=== PATIENT | female | born 1955 | race Caucasian/White ===

== ENCOUNTER → 2016-04-10 | Outpatient (CLI) | payer OTHER ==
[~2016-04-10] MED LIST: ALPR-411 PO; BACL20TA PO; CHLOTAB10 PO; DOCU100T7 PO; EFFSR150 PO; GABA800T PO; HYDR25TA4 PO; LISI-461 PO; NXM/40 PO; OXYC1TAB3 PO; POLY335019 PO; SIMV40TA4 PO; TRAM-10 PO; VALA1TAB31 PO; VERA180T PO; ZNTT/150 PO
== END | disposition home or self-care (01) ==
LOC: C.RDSM 14:23
PROVIDERS: ATTEND Physical Medicine & Rehabilitation Sports Medicine
DX: M79.642 Pain in left hand (principal)

== ENCOUNTER → 2016-04-18 | Day surgery (SDC) | payer OTHER ==
[2016-04-04 10:39] VITALS: Ht 157.5 cm; Wt 111.4 kg
[~2016-04-18] VITALS: Ht 157.5 cm; Wt 111.4 kg
[~2016-04-18] MED LIST changes: +IOPAMIDOL INJ 61% 15 ML VIAL ONE; +LIDOCAINE HCL 1% MPF 5 ML VIAL ONE; +SODIUM CHLORIDE 0.9% INJ 10 ML VIAL ONE
--- NOTE | 2016-04-18 12:55 | History & Physical Bridge - [place] ---
H&P Re-Evaluation Bridge Note: I have examined the patient, reviewed the History & Physical and in the interval since the performance of the History & Physical I have noted the following changes of clinical significance: No changes noted
[2016-04-18 13:22] VITALS: TEMP 36.8
--- NOTE | 2016-04-18 13:24 | Discharge Instructions ---
Discharge Instructions Visit Reason for Visit: Lumbosacral Radiculopathy Discharge Discharge Diagnosis / Problem: right leg pain Discharge Goals Goal(s): Decrease discomfort, Improve function Anesthesia . Post Anesthesia Instructions: If you have had General Anesthesia or IV Sedation: * Do not drive today. * Resume driving when surgeon permits. * Do not make important decisions or sign legal documents today. * Call surgeon for: 1. Temperature elevations greater than 101 degrees F. 2. Uncontrollable pain. 3. Excessive bleeding. 4. Persistent nausea and vomiting. 5. Medication intolerance (nausea, vomiting or rash). * For nausea and vomiting use only clear liquids such as: tea, soda, bouillon until nausea subsides, then gradually increase diet as tolerated. * If you have any concerns or questions, call your surgeon's office. If physician is unavailable and it is an emergency, call 911 or go to the nearest emergency room. . Diet Recommendations Recommended Home Diet: resume previous diet Procedures Procedures Performed: LUMBAR EPIDURAL STEROID INJECTION Pending Studies Studies pending at discharge: no Medical Emergencies . Who to Call and When: Medical Emergencies: If at any time you feel your situation is an emergency, please call 911 immediately. . Non-Emergent Contact Non-Emergency issues call your: Specialist . . "Provider Documentation" section prepared by Jamie Gilliam.
[2016-04-18 13:28] VITALS: BP 127/80; PULSE 76; O2SAT 95
--- NOTE | 2016-04-18 14:07 | OPERATIVE REPORT ---
DATE OF OPERATION: 04/18/2016 PREOPERATIVE DIAGNOSIS: Lumbar spinal stenosis with a right L5 radiculopathy. POSTOPERATIVE DIAGNOSIS: Same. PROCEDURE: Right paramedian L5-S1 intralaminar epidural steroid injection under fluoroscopic guidance. INDICATIONS: The patient is a 61-year-old white female who has had increasing radicular pain following a classic L5 dermatomal distribution down the right leg secondary to lumbar spinal stenosis and it is functionally limiting to her. She wishes to have something done more than a conservative treatment as she has failed this approach. She presents today for an epidural injection. PHYSICAL EXAMINATION: GENERAL: Pleasant female seated comfortably in no apparent distress. MUSCULOSKELETAL: Lumbar paraspinal muscles were palpated and noted to have tenderness over her right sciatic notch. She had reproduction of pain with forward flexion. Normal lower extremity strength, intact sensation, and negative seated straight leg raises. CONSENT: Verbal and written consent was obtained from the patient. Risks and benefits were reviewed. Risks include, but are not limited to epidural abscess, epidural hematoma, allergic reaction, and dural puncture. The patient wishes to proceed. DESCRIPTION OF PROCEDURE: The patient was taken back into the special procedures room at [facility], where she was maintained in a prone position. Backside was cleansed with Betadine x3 and a dry sterile dressing was applied. Fluoroscope was used to identify the L5-S1 intralaminar space and overlying skin was anesthetized with 4 mL of lidocaine 1% with a 25-gauge 1-1/2-inch needle. A 22-gauge 4-1/4 inch Tuohy needle was then directed down towards the intralaminar space and advanced under fluoroscopic guidance. She began to feel some discomfort at the deeper tissues. An additional 1 mL of lidocaine 1% was utilized. Loss of resistance was noted at a depth of little more than 11 cm. Isovue-300 contrast 1 mL was injected, in which demonstrated epidural uptake pattern, which was confirmed with both AP and lateral views. She then underwent injection after negative aspiration of 40 mg of Depo-Medrol and 4 mL of preservative free sodium chloride. Injection was well tolerated and reproduced a familiar transient radicular sensation down the right leg. DISPOSITION: 1. The patient is taken out into the discharge recovery area, where she will be discharged home once discharge criteria have been met. 2. Follow up in the [facility] office in 2-4 weeks. I attest to the content of the Intraoperative Record and any orders documented therein. Any exceptio ns are noted below.
== END | disposition home or self-care (01) ==
LOC: X.SURG 11:46
PROVIDERS: ATTEND Physical Medicine & Rehabilitation
DX: M48.06 Spinal stenosis, lumbar region (principal); M54.16 Radiculopathy, lumbar region

== ENCOUNTER → 2016-05-13 | Day surgery (SDC) | payer OTHER ==
[2016-04-29 11:23] VITALS: Ht 157.5 cm; Wt 111.4 kg
[~2016-05-13] VITALS: Ht 157.5 cm; Wt 111.4 kg
[~2016-05-13] MED LIST changes: -IOPAMIDOL INJ 61% 15 ML VIAL ONE; -LIDOCAINE HCL 1% MPF 5 ML VIAL ONE; +LIDOCAINE HCL 2% 2 ML VIAL (20MG/ML) ONE; +PROPOFOL IV EMULSION 10 MG/ML 20 ML VIAL IV ONE; -SODIUM CHLORIDE 0.9% INJ 10 ML VIAL ONE
[2016-05-13 14:30] VITALS: TEMP 36.7
--- NOTE | 2016-05-13 15:01 | Endo History and Physical ---
History & Physical Date of Service: May 13, 2016. Chief Complaint: HX OF POLYPS Referring Physician: KRISH JEAN History of Present Illness For colonoscopy Past Medical History Anxiety, High Cholesterol, Heart Disease, Depression Past Surgical History Hx Cardiac Surgery: No Hx Internal Defibrillator: No Hx Pacemaker: No Hx Abdominal Surgery: Yes (APPY, LAURA BSO, LAP NEHAL) Hx of Implantable Prosthesis: No Hx Post-Op Nausea and Vomiting: No Hx Cancer Surgery: No Hx Thoracic Surgery: No Hx Orthopedic: Yes (RT TKA, LT/RT FOOT GREAT TOE SURGERIES, RT SHOULDER) Hx Urinary Tract Surgery: No Family History None Social History Smoking Status: Never Smoker Hx Substance Use: No Hx Alcohol Use: Yes (OCCASIONAL) Allergies Coded Allergies: Carbamazepine (Verified Allergy, Intermediate, HIVES, 05/13/16) Penicillins (Verified Allergy, Intermediate, HIVES, 05/13/16) Amoxicillin (Verified Allergy, Unknown, RASH, 05/13/16) Sulfamethoxazole (Verified Adverse Reaction, Intermediate, N/V/D, 05/13/16) Replaces SULFAMETHOXAZ Trimethoprim (Verified Adverse Reaction, Intermediate, N/V/D, 05/13/16) Replaces SULFAMETHOXAZ Current Medications Reported Home Medications Medications Dose Route/Sig Max Daily Dose Days Date Category Coricidin Hbp Cough & Col (Chlorpheniramine-Dm) 1 Tab Tab 1 Tab PO BID PRN 04/29/16 Reported Stool Softener (Docusate Sodium) 100 Mg Tab 1 Tab PO DAILY PRN 04/29/16 Reported Valtrex (Valacyclovir Hcl) 1 Gm Tab 1 Gm PO UD PRN 04/29/16 Reported Calan Sr Ext Rel (Verapamil Hcl) 180 Mg Tab 180 Mg PO QPM 04/04/16 Reported Zocor (Simvastatin) 40 Mg Tab 40 Mg PO QPM 04/04/16 Reported Miralax (Polyethylene Glycol 3350) 1 Pow Pow 17 Gm PO DAILY PRN 01/09/15 Reported Neurontin (Gabapentin) 800 Mg Tab 800 Mg PO TID 01/09/15 Reported Alprazolam 0.5 Mg Tab 1 Tab PO HS PRN 09/28/14 Reported Nexium (Esomeprazole Magnesium) 40 Mg Capcr 40 Mg PO QAM 04/08/13 Reported Lioresal (Baclofen) 20 Mg Tab 20 Mg PO TID 04/08/13 Reported Hctz (Hydrochlorothiazide) 25 Mg Tab 25 Mg PO QAM 04/08/13 Reported Effexor Extended Rel (Venlafaxine Hcl) 150 Mg Capcr 150 Mg PO QAM 02/10/13 Reported Ultram (Tramadol HCl) 50 Mg Tab 50 Mg PO DAILY PRN 02/10/13 Reported Zantac (Ranitidine HCl) 150 Mg Tab 150 Mg PO BID PRN 02/10/13 Reported Zestril (Lisinopril) 10 Mg Tab 10 Mg PO QAM 02/10/13 Reported Vital Signs Weight (Kilograms): 111.36 Height (Feet): 5 Height (Inches): 2 Date Time Temp Pulse Resp B/P Pulse Ox O2 Delivery O2 Flow Rate FiO2 05/13/16 14:30 36.7 78 18 153/86 96 Room Air Physical Exam General Appearance: + obese Respiratory/Chest: Respiratory effort: no dyspnea Cardiovascular: Heart Auscultation: RRR Abdomen: Inspection & Palpation: soft Assessment and Plan Hx of polyps for colonoscopy
--- NOTE | 2016-05-13 15:21 | Discharge Instructions ---
Endoscopy Patient Instructions Date / Procedure(s) Performed May 13, 2016. Colonoscopy Allergy Information Coded Allergies: Carbamazepine (Verified Allergy, Intermediate, HIVES, 05/13/16) Penicillins (Verified Allergy, Intermediate, HIVES, 05/13/16) Amoxicillin (Verified Allergy, Unknown, RASH, 05/13/16) Sulfamethoxazole (Verified Adverse Reaction, Intermediate, N/V/D, 05/13/16) Replaces SULFAMETHOXAZ Trimethoprim (Verified Adverse Reaction, Intermediate, N/V/D, 05/13/16) Replaces SULFAMETHOXAZ Discharge Date / Findings May 13, 2016. Cecal resection Medication Instructions Restart Stopped Medication(s): resume meds Reported Home Medications Medications Dose Route/Sig Max Daily Dose Days Date Category Coricidin Hbp Cough & Col (Chlorpheniramine-Dm) 1 Tab Tab 1 Tab PO BID PRN 04/29/16 Reported Stool Softener (Docusate Sodium) 100 Mg Tab 1 Tab PO DAILY PRN 04/29/16 Reported Valtrex (Valacyclovir Hcl) 1 Gm Tab 1 Gm PO UD PRN 04/29/16 Reported Calan Sr Ext Rel (Verapamil Hcl) 180 Mg Tab 180 Mg PO QPM 04/04/16 Reported Zocor (Simvastatin) 40 Mg Tab 40 Mg PO QPM 04/04/16 Reported Miralax (Polyethylene Glycol 3350) 1 Pow Pow 17 Gm PO DAILY PRN 01/09/15 Reported Neurontin (Gabapentin) 800 Mg Tab 800 Mg PO TID 01/09/15 Reported Alprazolam 0.5 Mg Tab 1 Tab PO HS PRN 09/28/14 Reported Nexium (Esomeprazole Magnesium) 40 Mg Capcr 40 Mg PO QAM 04/08/13 Reported Lioresal (Baclofen) 20 Mg Tab 20 Mg PO TID 04/08/13 Reported Hctz (Hydrochlorothiazide) 25 Mg Tab 25 Mg PO QAM 04/08/13 Reported Effexor Extended Rel (Venlafaxine Hcl) 150 Mg Capcr 150 Mg PO QAM 02/10/13 Reported Ultram (Tramadol HCl) 50 Mg Tab 50 Mg PO DAILY PRN 02/10/13 Reported Zantac (Ranitidine HCl) 150 Mg Tab 150 Mg PO BID PRN 02/10/13 Reported Zestril (Lisinopril) 10 Mg Tab 10 Mg PO QAM 02/10/13 Reported Provider Instructions Activity Restrictions - No exercising or heavy lifting for 24 hours. - Do not drink alcohol the day of the procedure. - Do not drive a car or operate machinery until the day after the procedure. - Do not make any important decisions or sign important papers in 24 hours after the procedure. Following Day: - Return to full activity which may include returning to work/school. Diet Start your diet with liquids and light foods (jello, soup, juice, toast). Then eat your usual diet if not nauseated. Treatment For Common After Affects For mild abdominal pain, bloating, or excessive gas: - Rest - Eat lightly - Lie on right side Follow-Up Information Follow-up with KRISH JEAN as scheduled Anesthesia Information What You Should Know You have had a procedure that required some medicine to reduce anxiety and discomfort. This treatment is called moderate sedation. After receiving the treatment, you may be sleepy, but you will be able to breathe on your own. The effects of the treatment may last for several hours. Follow these instructions along with Activity/Diet recommendations noted above: * Do NOT do anything where dizziness or clumsiness would be dangerous. * Rest quietly at home today, then you can be up and about tomorrow. * Have a responsible person stay with you the rest of today. * You may have had an I.V. today. If so, you may take the dressing off later today. Recommendations Call your doctor if: * Trouble breathing * Continuous vomiting for more than 24 hours * Temperature above 101 degrees * Severe abdominal pain or bloating * Pain not relieved by pain medicine ordered * There is increased drainage or redness from any incision * A large amount of rectal bleeding greater than 2-3 tablespoons. (If you had a polyp/s removed or have hemorrhoids, a small amount of blood - from the rectum is to be expected.) * You have any unanswered questions or concerns. IN THE EVENT OF A SERIOUS EMERGENCY, GO TO THE NEAREST EMERGENCY ROOM Your discharge instructions were prepared by provider Aditya Alvarez. Patient Instructions Signature Page Armida Pleitez Patient (or Guardian) Signature/Date: I have read and understand the instructions given to me by my caregivers. Caregiver/RN/Doctor Signature/Date: The above-named patient and/or guardian has received patient instructions on this date. + Original Patient Signature Page (only) stays with chart. Please make copy for patient.
--- NOTE | 2016-05-13 15:25 | GI REPORT ---
Procedure Date: 05/13/2016 2:58 PM Procedure: Colonoscopy Indications: Personal history of colonic polyps Medicines: Propofol total dose 240 mg IV, Lidocaine 40 mg IV Complications: No immediate complications. Estimated Blood Loss: Estimated blood loss: none. Procedure: Pre-Anesthesia Assessment: - Prior to the procedure, a History and Physical was performed, and patient medications, allergies and sensitivities were reviewed. The patient's tolerance of previous anesthesia was reviewed. - The risks and benefits of the procedure and the sedation options and risks were discussed with the patient. All questions were answered and informed consent was obtained. After I obtained informed consent, the scope was passed under direct vision. Throughout the procedure, the patient's blood pressure, pulse, and oxygen saturations were monitored continuously. The Scope was introduced through the anus and advanced to the ileocolonic anastomosis. The colonoscopy was performed without difficulty. The patient tolerated the procedure well. The quality of the bowel preparation was good. Findings: There was evidence of a prior end-to-side ileo-colonic anastomosis in the proximal ascending colon. This was patent and was characterized by healthy appearing mucosa. The anastomosis was traversed. Impression: - Patent end-to-side ileo-colonic anastomosis, characterized by healthy appearing mucosa. - No specimens collected. Recommendation: - Discharge patient to home (ambulatory). - Continue present medications. - Repeat colonoscopy in 5 years for surveillance. - Return to primary care physician PRN. Aditya Alvarez M.D. Aditya Alvarez MD 05/13/2016 3:25:14 PM This report has been signed electronically. Note Initiated On: 05/13/2016 2:58 PM I attest to the content of the Intraoperative Record and orders documented therein, exceptions below
--- NOTE | 2016-05-13 15:44 | Anesthesiology Progress Note ---
Anesthesia Post Op Note Date & Time May 13, 2016 at 15:43 Vital Signs Pain Intensity: 0 Vital Signs Past 12 Hours Date Time Temp Pulse Resp B/P Pulse Ox O2 Delivery O2 Flow Rate FiO2 05/13/16 15:40 74 18 144/88 98 Room Air 05/13/16 15:24 72 18 123/67 98 Room Air 05/13/16 14:30 36.7 78 18 153/86 96 Room Air Notes Mental Status: alert / awake / arousable, participated in evaluation Pt Amnestic to Procedure: Yes Nausea / Vomiting: adequately controlled Pain: adequately controlled Airway Patency, RR, SpO2: stable & adequate BP & HR: stable & adequate Hydration State: stable & adequate Anesthetic Complications: no major complications apparent
[2016-05-13 15:46] VITALS: BP 125/80; PULSE 85; O2SAT 98
== END | disposition home or self-care (01) ==
LOC: C.GI 13:52
PROVIDERS: ATTEND Internal Medicine Gastroenterology
DX: Z86.010 Personal history of colon polyps (principal); Z98.0 Intestinal bypass and anastomosis status; E78.00 Pure hypercholesterolemia, unspecified; Z90.710 Acquired absence of both cervix and uterus; F32.9 Major depressive disorder, single episode, unspecified; Z79.899 Other long term (current) drug therapy

== ENCOUNTER → 2016-06-03 | Outpatient (CLI) | payer OTHER ==
[~2016-06-03] MED LIST changes: +GADAVIST IV PRN; -LIDOCAINE HCL 2% 2 ML VIAL (20MG/ML) ONE; -PROPOFOL IV EMULSION 10 MG/ML 20 ML VIAL IV ONE
--- NOTE | 2016-06-03 10:45 | DIAGNOSTIC IMAGING REPORT ---
MRI OF THE BRAIN WITHOUT AND WITH IV CONTRAST CLINICAL HISTORY: CAVERNOUS HEMANGIOMA OF BRAIN COMPARISON STUDY: MRI of the brain June 21, 2015. TECHNIQUE: Utilizing a 1.5 Megan magnet and dedicated coil, multiplanar, multiecho imaging of the brain was performed pre and postcontrast administration. IV administration of 11 mL of Gadavist contrast was uneventful. FINDINGS: There are no areas of restricted diffusion. The brain volume is normal. Ventricular system is normal. Basilar cisterns are patent. There are no extra-axial collections. The 9 mm cavernoma within the periventricular left parietal lobe is unchanged. No additional cavernoma as are identified to there is no evidence for acute hemorrhage on this exam. No additional intracranial masses are present. A few punctate white matter T2 hyperintense foci are unchanged and suggest minimal small vessel disease. A left occipital craniotomy is noted. The appearance of the brain is unchanged. IMPRESSION: 1. No acute intracranial findings. 2. No change in the 9 mm cavernoma within the periventricular left parietal lobe. Electronically signed by: Huang Narayan M.D. 06/03/2016 10:43 AM Dictated Date/Time: 06/03/2016 10:38 AM
== END | disposition home or self-care (01) ==
LOC: C.MRIBC 08:42
PROVIDERS: ATTEND Psychiatry & Neurology Neurology
DX: D18.02 Hemangioma of intracranial structures (principal)

== ENCOUNTER → 2016-06-03 | Outpatient (CLI) | payer OTHER ==
[~2016-06-03] MED LIST changes: -GADAVIST IV PRN
--- NOTE | 2016-06-03 11:33 | DIAGNOSTIC IMAGING REPORT ---
CERVICAL SPINE MRI HISTORY: Neck pain. RADICULOPATHY, SPONDYLOSIS TECHNIQUE: Multiplanar multisequence MRI of the cervical spine was performed without the use of contrast. COMPARISON STUDY: Cervical spine CT 04/08/2013. Cervical spine MRI 05/04/2004 from an outside hospital. FINDINGS: Straightening of the cervical spine. Alignment is intact. Mild disc space. C4-C5. Moderate to space. C5-C6. This has slightly progressed. Prevertebral soft tissues and the C1-C2 interval are intact. C2-C3: No significant central canal or neural foraminal narrowing. C3-C4: Small broad-based posterior disc bulge which abuts and slightly deforms anterior cord. No significant neural foraminal narrowing. C4-C5: Small broad-based posterior disc osteophyte complex asymmetric to the right which abuts and slightly deforms the right anterior cord. Mild bilateral neural foraminal narrowing. C5-C6: Broad-based posterior disc osteophyte complex which abuts but does not significantly deform the anterior cord. This is slightly improved from the 2004 examination. Moderate to severe bilateral neural foraminal narrowing due to the uncovertebral hypertrophy. C6-C7: No significant central canal or neural foraminal narrowing. C7-T1: No significant central canal or neural foraminal narrowing. Small focal central disc protrusion at T2-T3 without significant central canal or neural foraminal narrowing. IMPRESSION: 1. Straightening of the cervical spine. 2. Multilevel cervical spondylosis as described above most pronounced at the C4-C5 and C5-C6 levels. This is slightly improved at the C5-C6 levels compared to the 2004 examination. Electronically signed by: Aime Alanis M.D. 06/03/2016 11:30 AM Dictated Date/Time: 06/03/2016 11:23 AM
== END | disposition home or self-care (01) ==
LOC: C.MRIBC 08:36
PROVIDERS: ATTEND Physical Medicine & Rehabilitation
DX: M54.12 Radiculopathy, cervical region (principal); M47.812 Spondylosis without myelopathy or radiculopathy, cervical region; D18.02 Hemangioma of intracranial structures

== ENCOUNTER → 2016-06-12 | Outpatient (CLI) | payer OTHER ==
--- NOTE | 2016-06-12 12:57 | DIAGNOSTIC IMAGING REPORT ---
ULTRASOUND LEFT VENOUS DOPP LOWER EXT UNILAT CLINICAL HISTORY: LEFT LEG PAIN, SWELLING COMPARISON STUDY: No previous studies for comparison. FINDINGS: Real-time and color flow Doppler imaging were performed. Flow was seen within the femoral, popliteal and calf veins with no intraluminal thrombus demonstrated. The saphenous vein is patent. IMPRESSION: No evidence of left lower extremity DVT. Electronically signed by: Judson Powell M.D. 06/12/2016 12:55 PM Dictated Date/Time: 06/12/2016 12:52 PM
--- NOTE | 2016-06-12 13:08 | DIAGNOSTIC IMAGING REPORT ---
LEFT HIP 2 VIEWS HISTORY: LEFT LEG PAIN COMPARISON: None. FINDINGS: There is no fracture or dislocation. Soft tissues are unremarkable. No radiopaque foreign bodies. Left hip cartilage spaces maintained. IMPRESSION: No fractures. Electronically signed by: Aime Alanis M.D. 06/12/2016 1:05 PM Dictated Date/Time: 06/12/2016 1:01 PM
[2016-06-12 14:46] LABS: COMPLETE YES; EOS % 0.2 %; HEMATOCRIT 41.6 % (37-47); IG% 0.4 %; LYMPH % 36.5 %; LYMPH ABS # 2.04 K/uL (1.2-3.4); MEAN CELL VOLUME 87.2 fL (80-100); MEAN CORPUSCULAR HEMOGLOBIN 29.8 pg (25-34); MEAN CORPUSCULAR HGB CONC 34.1 g/dl (32-36); MEAN PLATELET VOLUME 10.2 fL (7.4-10.4); MONO % 10.7 %; NEUT % 52.2 %; PLATELET COUNT 158 K/uL (130-400); RED BLOOD COUNT 4.77 M/uL (4.2-5.4); WHITE BLOOD COUNT 5.59 K/uL (4.8-10.8)
[2016-06-12 18:15] LABS: BLOOD UREA NITROGEN 20 mg/dl (7-18); BUN/CREATININE RATIO 25.6 (10-20); CALCIUM 8.9 mg/dl (8.5-10.1); CARBON DIOXIDE 33 mmol/L (21-32); CHLORIDE 104 mmol/L (98-107); GLUCOSE 94 mg/dl (70-99); POTASSIUM 3.9 mmol/L (3.5-5.1); SODIUM 141 mmol/L (136-145)
== END | disposition home or self-care (01) ==
LOC: C.ULTR 12:10
PROVIDERS: ATTEND Family Medicine
DX: M79.605 Pain in left leg (principal)

== ENCOUNTER → 2016-06-18 | Outpatient (CLI) | payer OTHER ==
--- NOTE | 2016-06-18 11:40 | DIAGNOSTIC IMAGING REPORT ---
ABDOMEN 2VIEW W/PA CHEST RTN CLINICAL HISTORY: LLQ PAIN BLOATING AND NAUSEA COMPARISON STUDY: 01/09/2015 FINDINGS: The erect chest reveals no evidence of free air. There is no evidence of focal pulmonary consolidation.] There are linear areas of atelectasis/scar at the left lung base. Erect and supine views of the abdomen reveal no abnormally dilated loops of large or small bowel. There are no transition zone to indicate bowel obstruction. There are surgical clips within the right upper quadrant consistent with a prior cholecystectomy. There is a lumbar levoscoliosis. There is a transitional L5 vertebra. There are pelvic basin calcifications, likely representing phleboliths. There are multiple coil-like radiopacities, likely secondary to a hernia mesh. IMPRESSION: No evidence of bowel obstruction. No evidence of free air. Electronically signed by: Judson Powell M.D. 06/18/2016 11:37 AM Dictated Date/Time: 06/18/2016 11:36 AM
== END | disposition home or self-care (01) ==
LOC: C.RAD1850 11:12
PROVIDERS: ATTEND Nurse Practitioner Family
DX: R10.32 Left lower quadrant pain (principal)

== ENCOUNTER → 2016-07-31 | Outpatient (CLI) | payer OTHER ==
--- NOTE | 2016-07-31 09:47 | DIAGNOSTIC IMAGING REPORT ---
ABDOMINAL ULTRASOUND, RIGHT UPPER QUADRANT HISTORY: Mass INTRA ABDOMINAL AND PELVIC SWELLING MASS AND LUMP. COMPARISON: None. FINDINGS: Anterior midline fat-containing hernia. This is minimally superior to the umbilical region. Has a maximum dimension 3.5 cm. It is partially reducible. IMPRESSION: Partially reducible periumbilical hernia. No evidence of bowel containment. Electronically signed by: Manpreet Mott M.D. 07/31/2016 9:45 AM Dictated Date/Time: 07/31/2016 9:44 AM
== END | disposition home or self-care (01) ==
LOC: C.ULTRBC 08:24
PROVIDERS: ATTEND Nurse Practitioner Family
DX: R19.00 Intra-abdominal and pelvic swelling, mass and lump, unspecified site (principal); R10.9 Unspecified abdominal pain; K42.9 Umbilical hernia without obstruction or gangrene

== ENCOUNTER → 2016-10-10 | Day surgery (SDC) | payer OTHER ==
[2016-09-16 13:37] VITALS: Ht 157.5 cm; Wt 111.4 kg
[~2016-10-10] VITALS: Ht 157.5 cm; Wt 111.4 kg
[~2016-10-10] MED LIST changes: +IOPAMIDOL INJ 61% 15 ML VIAL ONE; +LIDOCAINE HCL 1% MPF 5 ML VIAL ONE; +SODIUM CHLORIDE 0.9% INJ 10 ML VIAL ONE
[2016-10-10 13:20] VITALS: TEMP 36.7
--- NOTE | 2016-10-10 13:25 | Discharge Instructions ---
Discharge Instructions Date of Service Oct 10, 2016. Visit Reason for Visit: Lumbosacral Radiculopathy Discharge Discharge Diagnosis / Problem: left leg pain Discharge Goals Goal(s): Decrease discomfort, Improve function Activity Recommendations Activity Limitations: resume your previous activity Anesthesia . Post Anesthesia Instructions: If you have had General Anesthesia or IV Sedation: * Do not drive today. * Resume driving when surgeon permits. * Do not make important decisions or sign legal documents today. * Call surgeon for: 1. Temperature elevations greater than 101 degrees F. 2. Uncontrollable pain. 3. Excessive bleeding. 4. Persistent nausea and vomiting. 5. Medication intolerance (nausea, vomiting or rash). * For nausea and vomiting use only clear liquids such as: tea, soda, bouillon until nausea subsides, then gradually increase diet as tolerated. * If you have any concerns or questions, call your surgeon's office. If physician is unavailable and it is an emergency, call 911 or go to the nearest emergency room. . Diet Recommendations Recommended Home Diet: resume previous diet Procedures Procedures Performed: LUMBAR EPIDURAL STEROID INJECTION Pending Studies Studies pending at discharge: no Medical Emergencies . Who to Call and When: Medical Emergencies: If at any time you feel your situation is an emergency, please call 911 immediately. . Non-Emergent Contact Non-Emergency issues call your: Specialist . . "Provider Documentation" section prepared by Jamie Gilliam. .
[2016-10-10 13:38] VITALS: BP 134/82; PULSE 72; O2SAT 97
--- NOTE | 2016-10-10 13:52 | OPERATIVE REPORT ---
DATE OF OPERATION: 10/10/2016 PREOPERATIVE DIAGNOSIS: Lumbar disc disease with a left L5 radiculopathy. POSTOPERATIVE DIAGNOSIS: Same. PROCEDURE: Left L5-S1 paramedian intralaminar epidural steroid injection under fluoroscopic guidance. INDICATIONS: The patient is a 61-year-old white female who has had issues with radiculopathy. She had previously responded to a steroid injection for radiculopathy and spurring in 2005 and she reports that the pain has been slowly increasing and is becoming a problem again. She presents today for an injection to address the radicular pain down the left leg. PHYSICAL EXAMINATION: Pleasant female seated comfortably. She has no tenderness to the paraspinal muscles, but she does have the palpation with the sciatic notch. Distal sensation was decreased in the left L5 dermatomal distribution with positive straight leg raise. CONSENT: Verbal and written consent was obtained from the patient. Risks and benefits were reviewed. Risks include but are not limited to epidural abscess, epidural hematoma, allergic reaction, dural puncture. The patient wishes to proceed. PROCEDURE IN DETAIL: The patient was taken back to the special procedures room of the [facility] where she was maintained in a prone position. Backside was cleansed with Betadine x3 and a dry sterile dressing was applied. Fluoroscope was used to identify the L5-S1 intralaminar space and overlying skin was anesthetized with 4 mL of lidocaine 1% with a 25 gauge 1.5-inch needle. A 22 gauge 4-1/4 inch Tuohy needle was then used to enter the intralaminar space. It was advanced under lateral fluoroscopic guidance and loss of resistance was noted at a depth of 10 cm. She then underwent injection after negative aspiration of 1 mL of Isovue 300 contrast which demonstrated epidural uptake pattern on both AP and lateral views. She then underwent injection after negative aspiration of 40 mg of Depo-Medrol and 4 mL of preservative free sodium chloride. Injection was well tolerated and reproduced a transient radicular sensation down the left leg. DISPOSITION: 1. The patient is taken out into the discharge recovery area where she will be discharged home once discharge criteria have been met. 2. Follow up in the [facility] office in 2-4 weeks. I attest to the content of the Intraoperative Record and any orders documented therein. Any exception s are noted below.
== END | disposition home or self-care (01) ==
LOC: X.SURG 12:13
PROVIDERS: ATTEND Physical Medicine & Rehabilitation
DX: M51.16 Intervertebral disc disorders with radiculopathy, lumbar region (principal)

== ENCOUNTER 2016-10-27 15:56 | Emergency (ER) | payer OTHER ==
[~2016-10-27] VITALS: Ht 157.5 cm; Wt 109.4 kg
[~2016-10-27 15:56] MED LIST changes: -IOPAMIDOL INJ 61% 15 ML VIAL ONE; -LIDOCAINE HCL 1% MPF 5 ML VIAL ONE; -OXYC1TAB3 PO; -SODIUM CHLORIDE 0.9% INJ 10 ML VIAL ONE
[2016-10-27 16:02] VITALS: TEMP 36.6; Ht 157.5 cm; Wt 109.4 kg
[2016-10-27] MEDS ORDERED: MoRPHine SULFATE 4 MG/ML 1 ML CARP\\VIAL IV STA ×2 (16:16→18:04)
--- NOTE | 2016-10-27 17:55 | DIAGNOSTIC IMAGING REPORT ---
LEFT PELVIS/UNILATERAL HIP 2-3VIEWS CLINICAL HISTORY: Fall, left hip pain COMPARISON STUDY: Left hip 06/12/2016. FINDINGS: No fracture or dislocation within the pelvis or hips. Soft tissues are unremarkable. Multiple metallic sutures coils are seen within the abdomen. IMPRESSION: No fracture or dislocation within the pelvis or hips. Electronically signed by: Aime Alanis M.D. 10/27/2016 5:54 PM Dictated Date/Time: 10/27/2016 5:52 PM
--- NOTE | 2016-10-27 17:56 | DIAGNOSTIC IMAGING REPORT ---
LEFT FOREARM 2 VIEWS HISTORY: Fall, left distal forearm pain COMPARISON: None. FINDINGS: Comminuted and slightly impacted fracture of the distal radius. This demonstrate intra-articular extension. Soft tissue swelling within the left wrist. The distal ulna and carpal bones appear intact. No radiopaque foreign bodies. IMPRESSION: Comminuted and slightly impacted fracture at the distal radius. Electronically signed by: Aime Alanis M.D. 10/27/2016 5:55 PM Dictated Date/Time: 10/27/2016 5:54 PM
[2016-10-27 18:32] VITALS: BP 131/94
[2016-10-27] MEDS ORDERED: IBUPROFEN 600 MG TAB PO STA (18:43)
[2016-10-27] MEDS ORDERED: OXYCODONE IR HOME PACK PO STA (18:44)
[2016-10-27] MEDS ORDERED: OXYC1TAB3 PO (18:46)
--- NOTE | 2016-10-27 18:47 | EMERGENCY ROOM VISIT NOTE ---
History First contact with patient: 16:12 Chief Complaint: WRIST PAIN Stated Complaint: L WRIST FALL History of Present Illness The patient is a 61 year old female who presents to the Emergency Room via private vehicle with complaints of "left wrist pain". The patient states that 2.5 hours prior to arrival, she was fishing, turned around slipped and fell striking the ground. She notes she landed on her left hip and her left wrist. She now points to her left distal wrist as a location of pain that she rates as a 10/10. She states that she fortunately is right-handed. She denies striking her head, or loss of consciousness. Review of Systems A complete 6-point Review of Systems was discussed with the patient, with pertinent positives and negatives listed in the History of Present Illness. All remaining Review of Systems questions can be considered negative unless otherwise specified. Past Medical/Surgical History Medical Problems: (1) Appendectomy (2) Asthma (3) Benign hypertension (4) Chronic back pain (5) Chronic gastric ulcer (6) Gout (7) Replacement of total knee joint Family History Patient reports no known family medical history. Social History Smoking Status: Never Smoker Alcohol Use: occasionally Marital Status: Housing Status: lives with family Occupation Status: employed Current/Historical Medications Scheduled Baclofen (Lioresal), 20 MG PO TID Esomeprazole Magnesium (Nexium), 40 MG PO QAM Gabapentin (Neurontin), 800 MG PO TID Hydrochlorothiazide (Hctz), 25 MG PO QAM Lisinopril (Zestril), 10 MG PO QAM Simvastatin (Zocor), 40 MG PO QPM Venlafaxine Hcl (Effexor Extended Rel), 150 MG PO QAM Verapamil Hcl (Calan Sr Ext Rel), 180 MG PO QPM Scheduled PRN Alprazolam (Alprazolam), 0.5 TAB PO HS PRN for Sleep Chlorpheniramine-Dm (Coricidin Hbp Cough & Col), 1 TAB PO BID PRN for COLD SYMPTOMS Docusate Sodium (Stool Softener), 100 MG PO DAILY PRN for Constipation Oxycodone Ir (Roxicodone Ir), 1-2 TAB PO Q4H PRN for Pain Polyethylene Glycol 3350 (Miralax), 17 GM PO DAILY PRN for Constipation Ranitidine (Zantac), 150 MG PO BID PRN Tramadol (Ultram), 50 MG PO DAILY PRN for Pain Valacyclovir Hcl (Valtrex), 1 GM PO UD PRN for COLD SORES Physical Exam Vital Signs Date Time Temp Pulse Resp B/P (MAP) Pulse Ox O2 Delivery O2 Flow Rate FiO2 10/27/16 19:07 87 20 95 10/27/16 18:32 87 20 131/94 100 10/27/16 17:55 69 16 130/84 96 10/27/16 16:02 36.6 83 20 150/92 97 Room Air Physical Exam VITAL SIGNS - Vital signs and nursing notes were reviewed. Stable. GENERAL -61-year-old female appearing her stated age. Communicates well with provider and answers questions appropriately. SKIN - Gross examination of the entire body surface demonstrates no lacerations to the body surface. HEAD - Normocephalic, Atraumatic. No Mitchell's Sign or Raccoon's Eyes. No depressed skull fractures palpable. EYES - PERRL with EOMI bilaterally. Without subconjunctival hemorrhage. No hyphema. EARS - No deformities of external structures noted on gross examination bilaterally. No blood from ear canals. NOSE - Midline and without cyanosis. No epistaxis or clear watery discharge noted. MOUTH/OROPHARYNX - Without perioral cyanosis NECK - no tenderness to palpation over the cervical spinous processes. No cervical paraspinal muscle tenderness noted. LUNGS - Chest wall symmetric without accessory muscle use, intercostals retractions, or central cyanosis. No flail chest or depressed fractures noted. No paradoxical chest wall movements noted.Normal vesicular breath sounds CTA B/ L. No wheezes, rales, or rhonchi appreciated. CARDIAC - RRR with S1/S2. No murmur, rubs, or gallops appreciated. ABDOMEN - Abdominal contour and without pulsations or visible masses. BS normoactive all four quadrants. No rebound tenderness or guarding noted. No tenderness, palpable masses, hepatosplenomegaly, or ascites noted. EXTREMITIES - No gross deformities noted of the extremities. There is tenderness to palpation overlying the distal left wrist. She is neurovascularly intact in her extremity. Plus 5/5 strength noted in UE/LE bilaterally. Slight tenderness to palpation overlying the left hip. NEUROLOGIC - Cranial nerves II through XII grossly intact. Sensory intact to light touch throughout. PSYCH - A&O, and cooperates fully with examiner. Pt is very pleasant and interacts well with examiner. Medical Decision & Procedures ER Provider Diagnostic Interpretation: LEFT PELVIS/UNILATERAL HIP 2-3VIEWS CLINICAL HISTORY: Fall, left hip pain COMPARISON STUDY: Left hip 06/12/2016. FINDINGS: No fracture or dislocation within the pelvis or hips. Soft tissues are unremarkable. Multiple metallic sutures coils are seen within the abdomen. IMPRESSION: No fracture or dislocation within the pelvis or hips. Electronically signed by: Aime Alanis M.D. 10/27/2016 5:54 PM Dictated Date/Time: 10/27/2016 5:52 PM LEFT FOREARM 2 VIEWS HISTORY: Fall, left distal forearm pain COMPARISON: None. FINDINGS: Comminuted and slightly impacted fracture of the distal radius. This demonstrate intra-articular extension. Soft tissue swelling within the left wrist. The distal ulna and carpal bones appear intact. No radiopaque foreign bodies. IMPRESSION: Comminuted and slightly impacted fracture at the distal radius. Electronically signed by: Aime Alanis M.D. 10/27/2016 5:55 PM Dictated Date/Time: 10/27/2016 5:54 PM Medications Administered Medications (Trade) Dose Ordered Sig/Kelsey Route Start Time Stop Time Status Last Admin Dose Admin Morphine Sulfate (MoRPHine SULFATE INJ) 4 mg NOW STAT IV 10/27/16 16:16 10/27/16 16:18 DC 10/27/16 16:39 4 MG Morphine Sulfate (MoRPHine SULFATE INJ) 4 mg NOW STAT IV 10/27/16 18:04 10/27/16 18:05 DC 10/27/16 18:27 4 MG Ibuprofen (Motrin Tab) 600 mg NOW STAT PO 10/27/16 18:43 10/27/16 18:45 DC 10/27/16 18:52 600 MG Oxycodone HCl (Roxicodone Immediate Rel 5MG Home Pack) 1 homepack UD STAT PO 10/27/16 18:44 10/27/16 18:45 DC 10/27/16 18:52 1 HOMEPACK Medical Decision Patient was seen and evaluated as above. IV access was initiated secondary to the concern over having to reduce the fracture, and the above workup was performed. Radiographs were obtained of the left hip and left wrist. Hip is negative with results as above. Wrist does reveal fracture of the distal radius. She was given 4 mg of morphine for pain. Ice packs were applied. A volar splint was applied using Ortho-Glass. This was with good fit. She appears stable for outpatient management. 4 mg of morphine were given for her pain. She'll be given a short prescription of OxyIR for pain. She is to follow -up with orthopedics. She was seen by the attending physician. She was educated upon worrisome symptoms which to return, had questions answered prior to discharge, and were discharged, condition. In the evaluation and treatment of this patient, the following differential diagnoses were considered: Wrist Sprain, Wrist Fracture, Wrist Dislocation, Scapholunate Dissociation, Carpal Fracture, Metacarpal Fracture, Radial Styloid Process Fracture, Ulnar Styloid Process Fracture, or Carpal Tunnel Syndrome, Hip Fracture, Hip Dislocation, Greater Trochanteric Bursitis, Musculoskeletal Pain, Lumbar Radiculopathy. [place] Drug Monitoring Program Search Results: patient reviewed within database, no issues identified Medication Reconcilliation Current Medication List: was personally reviewed by me Blood Pressure Screening Patient's blood pressure: Elevated blood pressure Blood pressure disposition: Elevated BP felt to be situational Impression Primary Impression: Wrist pain, left Additional Impression: Left hip pain Departure Information Dispostion Home / Self-Care Condition GOOD Prescriptions Oxycodone Ir (Roxicodone Ir) 5 Mg Tab 1-2 TAB PO Q4H Y for Pain, #15 TAB For Initial Treatment Prov: Rupert Brock PA-C 10/27/16 Referrals Cookie Correia (PCP) Johnathan Cardozo M.D. Patient Instructions My [facility] Additional Instructions You have been treated in the Emergency Department for Wrist Pain. You have received pain medicine in the emergency department which impairs your ability to operate a vehicle. It is illegal for you to drive after receiving these medicines. You have been prescribed Oxy IR to be used for pain control. This is a narcotic medication. You cannot drive or consume alcohol while on this medicine. This medicine should only be used for pain that cannot be controlled with over-the- counter pain medicines. For pain control, you can use the following [id number] medicines (if >12 yo): - Regular strength (325mg/tab) Tylenol (acetaminophen) 2 tabs every 4-6 hours as needed. Do not exceed 12 tablets in a 24 hour period. Avoid taking more than 3 grams (3000 mg) of Tylenol per day. This includes any other sources of acetaminophen you may take on a regular basis. If this is a recent injury (<24 hrs), ice can be applied to the area of pain for the first 3 days to help decrease pain and inflammation. You have been provided the number for an Orthopaedic Surgeon. You should call this number as soon as possible to establish a follow-up visit from today's Emergency Department visit. Keep the brace/splint in place until evaluated by Orthopedics. Return to the Emergency Department if your current symptoms worsen despite treatment course outlined above, or if you develop any of the following symptoms : intractable pain despite aforementioned treatment course or new onset of numbness or tingling of the fingers. Please return to emergency department with any new/concerning symptoms. Problem Qualifiers
[2016-10-27 19:07] VITALS: PULSE 87; O2SAT 95
--- NOTE | 2016-10-27 22:37 | EMERGENCY ROOM VISIT NOTE ---
ED Visit Note First contact with patient: 16:12 I have personally seen and evaluated the patient with the PA. I agree with the diagnosis and management decisions and have been personally involved in the case. Please see Rupert Brock PA-C's notes for further details of the history, physical and visit.
== END 2016-10-27 19:09 | disposition home or self-care (01) ==
LOC: C.EDB 15:57 → C.EDD 19:09
DX: M25.532 Pain in left wrist (principal); M25.552 Pain in left hip; W01.0XXA Fall on same level from slipping, tripping and stumbling without subsequent striking against object, initial encounter; Y93.89 Activity, other specified; I10 Essential (primary) hypertension; G89.29 Other chronic pain; M54.9 Dorsalgia, unspecified; J45.909 Unspecified asthma, uncomplicated; Z79.899 Other long term (current) drug therapy; Z87.19 Personal history of other diseases of the digestive system

== ENCOUNTER → 2016-10-29 | Outpatient (CLI) | payer OTHER ==
[~2016-10-29] MED LIST changes: +OXYC1TAB3 PO
--- NOTE | 2016-10-29 13:01 | DIAGNOSTIC IMAGING REPORT ---
LEFT WRIST 4 VIEWS HISTORY: FX of left distal radius COMPARISON: Left forearm 10/27/2016. FINDINGS: There is again noted a slightly impacted and comminuted fracture within the distal left radius which demonstrates intra-articular extension. Soft tissue swelling within the left wrist. There is mild dorsal displacement of the distal radius fracture. The scaphoid and distal ulna are intact. No radiopaque foreign bodies. IMPRESSION: No significant change in the distal left radius fracture as described above. Electronically signed by: Aime Alanis M.D. 10/29/2016 12:38 PM Dictated Date/Time: 10/29/2016 12:36 PM
== END | disposition home or self-care (01) ==
LOC: C.RDSM 11:37
PROVIDERS: ATTEND Physician Assistant
DX: S52.532A Colles' fracture of left radius, initial encounter for closed fracture (principal); X58.XXXA Exposure to other specified factors, initial encounter

== ENCOUNTER → 2016-11-06 | Outpatient (CLI) | payer OTHER | END | disposition home or self-care (01) | LOC: C.RDSM 13:00 | PROVIDERS: ATTEND Physical Medicine & Rehabilitation Sports Medicine | DX: S52.532D Colles' fracture of left radius, subsequent encounter for closed fracture with routine healing (principal); X58.XXXD Exposure to other specified factors, subsequent encounter ==

== ENCOUNTER → 2016-11-11 | Outpatient (CLI) | payer OTHER ==
--- NOTE | 2016-11-11 14:10 | DIAGNOSTIC IMAGING REPORT ---
LEFT WRIST MIN 3 VIEWS ROUTINE CLINICAL HISTORY: 61 years-old Female presenting with LEFT WRIST FX. TECHNIQUE: Frontal, bilateral oblique, and lateral views of the left wrist were obtained. COMPARISON: 11/06/2016 and 10/29/2016. FINDINGS: Redemonstration of the distal radial metaphysis fracture. Impaction is also present. No significant change in the degree of trace apex volar angulation at the fracture site. The fracture plane may extend through the articular surface at the level of the scapholunate articulation. The alignment of the radius with the lunate and capitate is preserved. Fracture plane remains evident although periosteal reaction is suggested. No significant degenerative change at the radiocarpal articulation. The distal radial ulnar joint is grossly intact. IMPRESSION: Incomplete healing of the distal radial metaphysis fracture, although there is suggestion of interval periosteal reaction. Impaction and trace angulation is not significantly changed from prior. There is suggestion that the fracture plane extends to the articular surface at the level of the scapholunate articulation, although this is not definite and would be better demonstrated with noncontrast CT. Electronically signed by: Johnathan Perez M.D. 11/11/2016 2:08 PM Dictated Date/Time: 11/11/2016 2:03 PM
== END | disposition home or self-care (01) ==
LOC: C.RDSM 11:53
PROVIDERS: ATTEND Physician Assistant
DX: S52.502G Unspecified fracture of the lower end of left radius, subsequent encounter for closed fracture with delayed healing (principal); X58.XXXD Exposure to other specified factors, subsequent encounter

== ENCOUNTER → 2016-11-12 | Outpatient (CLI) | payer OTHER | END | disposition home or self-care (01) | LOC: C.LAB 10:18 | PROVIDERS: ATTEND Psychiatry & Neurology Neurology | DX: R51 Headache (principal) ==

== ENCOUNTER → 2016-11-15 | Outpatient (CLI) | payer OTHER | END | disposition home or self-care (01) | LOC: C.RDSM 10:24 | PROVIDERS: ATTEND Physical Medicine & Rehabilitation Sports Medicine | DX: M25.522 Pain in left elbow (principal); Z09 Encounter for follow-up examination after completed treatment for conditions other than malignant neoplasm ==

== ENCOUNTER → 2016-11-19 | Outpatient (CLI) | payer OTHER ==
[~2016-11-19] MED LIST changes: +GADAVIST IV PRN
--- NOTE | 2016-11-19 10:15 | DIAGNOSTIC IMAGING REPORT ---
BRAIN COMBO HISTORY: 61 years-old Female CAVERNOUS HEMANGIOMA OF BRAIN,HEADACHES recent fall with pain. 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 COMPARISON: Brain MR 06/03/2016 TECHNIQUE: Multiplanar multisequence MRI of the brain was obtained both with and without the use of 10.5 mL Gadavist. FINDINGS: There is no restricted diffusion to suggest acute ischemia. The midline structures including the corpus callosum, brainstem, optic chiasm and pituitary gland appear unremarkable on the sagittal T1 sequence. 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 Mildly lobulated 9 x 8 x 6 mm lesion of the periventricular left parietal lobe seen on image 16 of series 6 appears unchanged from comparison again demonstrating peripheral blooming there is of central increased T1 and T2 signal. No associated significant enhancement. No additional cavernoma's or hemorrhage identified. No midline shift, extra-axial collections or hydrocephalus identified. There are a few areas of T2/FLAIR prolongation involving the subcortical and periventricular white matter suggesting chronic microvascular ischemic changes appear unchanged. There is mild bifrontal cerebral atrophy. Major flow voids at the skull base appear patent with diminutive right vertebral artery. Orbits are symmetric. Mastoid air cells and paranasal sinuses are generally clear. Prior left occipital craniotomy. No abnormal intra-axial or extra-axial enhancement identified. IMPRESSION: 1. No acute intracranial abnormality. 2. Unchanged size and appearance of the 9 mm left parietal lobe cavernous hemangioma. 3. Subcentimeter pineal gland cyst. The above report was generated using voice recognition software. It may contain grammatical, syntax or spelling errors. Electronically signed by: Denilson Carreno M.D. 11/19/2016 10:14 AM Dictated Date/Time: 11/19/2016 10:06 AM
== END | disposition home or self-care (01) ==
LOC: C.MRIBC 08:07
PROVIDERS: ATTEND Psychiatry & Neurology Neurology
DX: D18.02 Hemangioma of intracranial structures (principal); E34.8 Other specified endocrine disorders

== ENCOUNTER → 2016-12-02 | Outpatient (CLI) | payer OTHER ==
[~2016-12-02] MED LIST changes: -GADAVIST IV PRN
== END | disposition home or self-care (01) ==
LOC: C.RDSM 13:03
PROVIDERS: ATTEND Physical Medicine & Rehabilitation Sports Medicine
DX: Z09 Encounter for follow-up examination after completed treatment for conditions other than malignant neoplasm (principal)

== ENCOUNTER → 2017-02-27 | Outpatient (CLI) | payer OTHER | END | disposition home or self-care (01) | LOC: C.MAMM 14:22 | PROVIDERS: ATTEND Physical Medicine & Rehabilitation Sports Medicine | DX: M85.851 Other specified disorders of bone density and structure, right thigh (principal); M85.852 Other specified disorders of bone density and structure, left thigh; S52.532D Colles' fracture of left radius, subsequent encounter for closed fracture with routine healing; X58.XXXD Exposure to other specified factors, subsequent encounter ==

== ENCOUNTER → 2017-02-27 | Outpatient (CLI) | payer OTHER ==
[~2017-02-27] MED LIST changes: +ALUMSUS2 PO; +CHOL2000 PO; +CYCL10TA6 PO; +IMT100 PO; +OMEGA Q PO; +OXYC-90 PO; -OXYC1TAB3 PO; +PRED20TA2 PO; +PSYL48.59; +RANI150T85 PO; +TURM1CAP PO; +ULT/50 PO; +VRPSR240 PO; -ZNTT/150 PO
--- NOTE | 2017-02-27 12:46 | MAMMOGRAPHY REPORT ---
BILATERAL DIGITAL SCREENING MAMMOGRAM TOMOSYNTHESIS WITH CAD: 02/27/2017 CLINICAL HISTORY: Routine screening. TECHNIQUE: Breast tomosynthesis in addition to standard 2D mammography was performed. Current study was also evaluated with a Computer Aided Detection (CAD) system. COMPARISON: Comparison is made to exams dated: 10/06/2012 mammogram, 02/27/2011 mammogram - [facility], 03/08/2008, and 04/29/2006. BREAST COMPOSITION: There are scattered areas of fibroglandular density in both breasts. FINDINGS: There is a stable focal asymmetry in the upper outer anterior right breast. A few benign r odlike calcifications bilaterally. No suspicious mass, architectural distortion or cluster of suspic ious microcalcifications is seen. IMPRESSION: ACR BI-RADS CATEGORY 1: NEGATIVE There is no mammographic evidence of malignancy. A 1 year screening mammogram is recommended. The pa tient will receive written notification of the results. Approximately 10% of breast cancers are not detected with mammography. A negative mammographic report should not delay biopsy if a clinically suggestive mass is present. Mindy Zimmerman M.D. ay/:02/27/2017 12:29:55 Associate Store Director: Leif VICTORIA(R)(M), [facility] letter sent: Normal 1/2 BI-RADS Code: ACR BI-RADS Category 1: Negative
== END | disposition home or self-care (01) ==
LOC: C.MAMM 10:54
PROVIDERS: ATTEND Nurse Practitioner Family
DX: Z12.31 Encounter for screening mammogram for malignant neoplasm of breast (principal)

== ENCOUNTER → 2017-04-04 | Outpatient (CLI) | payer OTHER ==
[~2017-04-04] MED LIST changes: -ALUMSUS2 PO; -CHOL2000 PO; -CYCL10TA6 PO; +GADAVIST IV PRN; -IMT100 PO; -OMEGA Q PO; -OXYC-90 PO; +OXYC1TAB3 PO; -PRED20TA2 PO; -PSYL48.59; -TURM1CAP PO; -ULT/50 PO; -VRPSR240 PO
--- NOTE | 2017-04-04 10:55 | DIAGNOSTIC IMAGING REPORT ---
MRI OF THE BRAIN COMBO TRIGEMINAL NERVE PROTOCOL CLINICAL HISTORY: Trigeminal neuralgia. COMPARISON STUDY: Previous MRI examinations of the brain, most recently dated 11/19/2016. TECHNIQUE: MRI of the brain was performed utilizing various T1 and T2-weighted sequences in the axial, sagittal, and coronal planes. Contrast-enhanced sequences were acquired following the administration of 10.5 cc of Gadavist. Additional high-resolution imaging was performed to the skull base both pre and post contrast to assess the trigeminal nerves. The high-resolution images are significantly degraded by motion artifact. FINDINGS: Brain parenchyma: A cavernoma is again seen in the left posterior parietal white matter measuring up to 10 mm. There is no evidence of interval hemorrhage as compared to previous. There is minimal subcortical and periventricular microangiopathic disease. There is no hemorrhage or mass effect. There is no restricted diffusion to suggest acute ischemia. No enhancing mass lesion is identified on the postcontrast images. [place]ig[place]-white matter differentiation is preserved. No extra-axial fluid collection is seen. The cerebellar tonsils are normal in configuration. A 7 mm pineal cyst is unchanged. Ventricles, sulci, and cisterns: Normal in configuration. General nerves: The trigeminal nerves are normal in appearance and symmetric. No abnormal enhancement is identified on the postcontrast sequences. Pituitary and sella: Unremarkable. Intracranial vasculature: Normal flow voids are maintained at the skull base. Orbits: The bony orbits are grossly intact. Orbital contents are normal in appearance. Sinuses and mastoids: Clear. Calvarium: Unremarkable. Cervical cord: Partially visualized cervical spinal cord is normal in morphology and signal intensity. IMPRESSION: 1. No acute intracranial abnormality. 2. Unchanged appearance of a cavernoma in the left parietal white matter as compared to prior studies. There is no evidence of interval hemorrhage. 3. Unremarkable MRI assessment of the trigeminal nerves noting a motion compromised examination. Electronically signed by: Caleb Kirk M.D. 04/04/2017 10:54 AM Dictated Date/Time: 04/04/2017 10:42 AM
== END | disposition home or self-care (01) ==
LOC: C.MRIBC 09:17
PROVIDERS: ATTEND Physician Assistant
DX: G50.0 Trigeminal neuralgia (principal)

== ENCOUNTER → 2017-04-18 | Outpatient (CLI) | payer OTHER ==
[~2017-04-18] MED LIST changes: -GADAVIST IV PRN
== END | disposition home or self-care (01) ==
LOC: C.RDSM 19:56
PROVIDERS: ATTEND Physical Medicine & Rehabilitation Sports Medicine
DX: M79.674 Pain in right toe(s) (principal); M79.675 Pain in left toe(s)

== ENCOUNTER 2020-09-26 10:06 | Inpatient (IN) ==
[2020-09-26] MEDS ORDERED: PROPOFOL IV EMULSION 10 MG/ML 20 ML VIAL IV STA ×3 (10:33→14:17)
[2020-09-26] MEDS ORDERED: ONDANSETRON INJ 2 MG/ML 2 ML VIAL IV STA ×2 (10:33→14:17)
[2020-09-26] MEDS ORDERED: KETAMINE HCL INJ 50 MG/ML 10 ML VIAL IV STA ×2 (10:33→14:17)
[2020-09-26] MEDS ORDERED: SODIUM CHLORIDE 0.9% 500 ML IV ONE (10:35)
[2020-09-26] MEDS ORDERED: ACETAMINOPHEN 1,000 MG/100 ML VIAL IV STA (10:38)
[2020-09-26] MEDS: HYDROmorphone INJ 0.5 MG/0.5 ML SYR IV PRN ×3 (11:05→13:12)
--- NOTE | 2020-09-26 11:48 | XRay Report ---
XR shoulder RT min 2V routine HISTORY: 65 years-old Female Rt shoulder post reduction acute right shoulder pain COMPARISON: Right shoulder radiographs of same day at 9:20 AM TECHNIQUE: 3 views of the right shoulder FINDINGS: Anteroinferior dislocation of the humerus with acute appearing Hill-Sachs deformity and age- indeterm inate bony Bankart fracture. Chronic widening of the right AC joint. IMPRESSION: 1. Persistent anteroinferior dislocation of the humerus. 2. Acute Hill-Sachs deformity with age-indeterminate bony Bankart fracture. ACT 112: Negative or not required by law. The above report was generated using voice recognition software. It may contain grammatical, syntax o r spelling errors. Electronically signed by: Tariq Carreno M.D. 09/26/2020 11:46 AM
[2020-09-26] MEDS ORDERED: diphenhydrAMINE 50 MG/ML VIAL IV STA (12:24)
[2020-09-26] MEDS ORDERED: DROPERIDOL 5 MG/2 ML VIAL IV STA (12:24)
[2020-09-26] MEDS ORDERED: MAGNESIUM SULFATE / D5W 1 GM/100 ML BAG IV STA (12:24)
--- NOTE | 2020-09-26 13:06 | CT Scan Report ---
CT shoulder RT wo con CT DOSE: 967.39 mGy.cm CLINICAL HISTORY: dislocation/reduction/ fall TECHNIQUE: A dose lowering technique was utilized adhering to the principles of ALARA. COMPARISON STUDY: None. Correlation is made with radiograph of the right shoulder performed on Augus t 2020 at 11:08 hours. FINDINGS: Right humeral head is dislocated anteriorly and inferiorly in relation to glenoid. Hill-Sachs deformity of the of the superior lateral aspect of the right humeral head is seen. Few subchondral cysts are seen within humeral head representing degenerative process. Slightly displaced fracture of inferior aspect of the right glenoid and mild inferior displacement of the fractured fragment is seen. No other fractures are seen however evaluation is limited due to diffuse osteopenia. There is fluid collection is seen surrounding right shoulder. Visualized portion of the right lung shows no evidence of pneumothorax and mild atelectasis at depend ent portion of the right lung. IMPRESSION: 1. Right humeral head is displaced anteriorly and inferiorly to the glenoid, shows Hill-Sachs deform ity and degenerative changes. 2. Slightly displaced fracture of inferior aspect of the right glenoid. 3. No other fractures seen. 4. The rest of findings as detailed above. ACT 112: Negative or not required by law. The above report was generated using voice recognition software. It may contain grammatical, syntax o r spelling errors. Electronically signed by: Kiersten Huang DO 09/26/2020 1:04 PM
--- NOTE | 2020-09-26 14:04 | Emergency Department Note ---
ED Visit Note The planned sedation has been discussed with the patient. Informed Consent was obtained. I have identified the patient, determined the appropriateness of sedation and have assessed the patient immediately prior to the procedure. All medicine(s) and interventions are by my order. .
--- NOTE | 2020-09-26 14:06 | Emergency Department Note ---
ED Visit Note On clinical assessment, the patient appears to have tolerated the sedation without complications. Patient is recovering as anticipated. Patient will continue to be monitored by nursing and may be discharged when sedation discharge criteria are met per below protocol. Upon Completions of procedure up to 15 minutes continue every 5 minute vital s igns and the P.A.R. score; then discharge to a Phase I or Fast Track to Phase II per the following guidelines: * Discharge Patient to appropriate Phase II area if PAR is 8 or greater or return to pre- procedure baseline. The post - procedure orders will be as directed. * If PAR score is less than 8 or not return to pre-procedure baseline then patient will follow Phase I monitoring till PAR is reached for Phase II. The Phase I may be done in procedure room or may call to secure a Phase I area. * If naloxone or flumazenil are used for reversal, hold in Phase I for continued monitoring from when last reversal dose was given for a minimum of 60 minutes or longer pending the nurse and/or physician discretion of patient condition before discharge to Phase II. Please call the Sedation Physician to re-evaluate and complete post-note for discharge to Phase II area. Do NOT discharge from procedure sedation or Phase 1 until post- sedation evaluation note is complete by procedure /sedation MD Sedation Discharge Instructions to be given to the patient at discharge to home. .
--- NOTE | 2020-09-26 14:08 | Emergency Department Note ---
Impression & Plan Dislocated shoulder, Glenoid fracture of shoulder ED Provider Note NAME: REGGIE BYRNE AGE: 65 SEX: F : 1955 ARRIVES VIA: Walk-In INFORMANT: Patient, ortho surgeon ED PROVIDER(S): Jordon Flores MD CHIEF COMPLAINT: Rt shoulder pain HPI: Prior records reviewed by me reveals that the patient was in the emergency department yesterday with a shoulder dislocation as well as a fall. This 65-year-old female who presents emergency department complaining of right shoulder pain. The patient had a shoulder reduction done in the emergency department yesterday. She was following up with orthopedic surgery today in the office. They felt that the shoulder went back out of place. The patient is reporting pain anytime she moves the shoulder. She describes the pain as an aching sensation with radiation into her back. The patient has not taken anything for the pain today. She reports movement makes the pain worse however immobilization makes the pain better. ROS: See above HPI for pertinent positives & negatives. A total of 10 systems reviewed and were otherwise negative. PAST MEDICAL HISTORY: See Below PAST SURGICAL HISTORY: See Below FAMILY HISTORY: See Below SOCIAL HISTORY: See Below HOME MEDICATIONS: See Below ALLERGIES: See Below VITALS: See Below PHYSICAL EXAMINATION: VITAL SIGNS - Vital signs and nursing notes were reviewed. GENERAL - 65-year-old female appearing stated age who is in no acute distress. Communicates well with provider and answers questions appropriately. SKIN - Without rashes. HEAD - NC/AT. EYES - PERRL with EOMI bilaterally. Sclera anicteric. Palpebral conjunctiva pink and moist with no injection noted. EARS - No deformities of external structures noted on gross examination bilaterally. NOSE - Midline and without cyanosis. No epistaxis or purulent drainage noted. Septum midline without deviation or septal hematoma noted. MOUTH/OROPHARYNX - Without perioral cyanosis. Buccal mucosa pink and moist and without leukoplakia. Tongue midline with equal elevation of palate bilaterally. No tonsillar hypertrophy, erythema, or exudates noted. NECK - Neck with FROM. Supple to palpation. LUNGS - Chest wall symmetric without accessory muscle use, intercostals retractions, or central cyanosis. Normal vesicular breath sounds CTA B/L. No wheezes, rales, or rhonchi appreciated. CARDIAC - RRR with S1/S2. No murmur, rubs, or gallops appreciated. ABDOMEN - Abdominal contour without pulsations or visible masses. BS normoact trevon all four quadrants. No tenderness, palpable masses, hepatosplenomegaly, or ascites noted. EXTREMITIES -patient has obvious deformity to the right shoulder however is neurovascularly intact at the elbow as well as the wrist. NEUROLOGIC - Cranial nerves II through XII grossly intact. Sensory intact to light touch throughout. Patellar reflexes +2/4. PSYCH - A&Ox3 and cooperates fully with examiner. Pt is very pleasant and interacts well with examiner. MEDICAL DECISION MAKING: Patient was seen and evaluated as above in room A1. Review was performed of nursing notes and vital signs. I did review pertinent previous visits and patient history. After obtaining a thorough history and physical examination the above work up was performed. This 65-year-old female who presents emergency department complaining of right- sided shoulder dislocation. We attempted to sedate the patient and get the patient's shoulder in place x2 without success. The patient was sedated by myself as below and attempted reduction was attempted by Mr. Kim AGUIRRE. Dr. Cardozo was then kind enough to come and see the patient. We were then able to reduce the patient's shoulder in the emergency department. The patient was then sent for a CAT scan of the shoulder and an MRI was also performed. While in the department, I personally reevaluated the patient several times and each time the patient was found to be resting comfortably. The patient was educated upon management, educated upon todays findings/results, educated upon importance of follow up from today's visit, educated upon symptoms in which to return, had questions answered prior to discharge, verbalized understanding, and was discharged home in good condition. An order was placed for continuous cardiac monitoring. The monitor shows a rate of 72 with Normal SInus rhythm. The patient was evaluated during a period of high volume and high acuity during the global COVID-19 pandemic, and that diagnosis was suspected/considered upon their initial presentation. Their evaluation, treatment and testing was consistent with current guidelines for patients who present with complaints or symptoms that may be related to COVID-19. Patient was seen while provider was wearing PPE. Triage Nursing notes reviewed. Prior medical records reviewed Vital Signs: reviewed and remarkable for no significant abnormalities Differential diagnosis: Fracture, subluxation, dislocation, contusion, ligamentous injury, neurovascular, compartment syndrome, rhabdomyolysis, as well as other pathologies. ER treatment provided: See below Laboratory studies: As stated above and show below. Imaging studies: See below Consultation(s): Orthopaedic surgery ED COURSE: Procedures: Procedural Sedation Indication Rt shoulder dislocation. Total time: 20 minutes. Written consent was obtained after the risks and benefits were explained to the patient and brother, including, but not limited to aspiration, allergic reaction, breathing difficulties, cardiac complications, vomiting, pain, event recall, bleeding, and/or infection. Pre-sedation examination and paperwork completed. The patient was on 100% oxygen via NRB prior to the procedure. Continous end tidal CO2 monitoring, pulse oximetry, and cardiac monitoring were utilized. Suction, airway equipment, medications, respiratory equipment, and appropriate personnel were prepared prior to the initiation of the procedure. A time out was taken. Sedation was achieved utilizing Propofol in 25 mg alloquots and 50 mg of Ketamine. After I observed the patient had reached the appropriate level of sedation the main procedure was performed without complication. Sedation was discontinued and the monitoring continued. The patient recovered quickly from the effects of the medication without complication or adverse event. PDMP:reviewed and no issues Procedural Sedation Indication Rt shoulder reduction Total time:20 minutes. Written consent was obtained after the risks and benefits were explained to the patient and brother, including, but not limited to aspiration, allergic reaction, breathing difficulties, cardiac complications, vomiting, pain, event recall, bleeding, and/or infection. Pre-sedation examination and paperwork completed. The patient was on 100% oxygen via NRB prior to the procedure. Continous end tidal CO2 monitoring, pulse oximetry, and cardiac monitoring were utilized. Suction, airway equipment, medications, respiratory equipment, and appropriate personnel were prepared prior to the initiation of the procedure. A time out was taken. Sedation was achieved utilizing 50 mg of Ketamine and 25 mg of propofol. After I observed the patient had reached the appropriate level of sedation the main procedure was performed without complication. Sedation was discontinued and the monitoring continued. The patient recovered quickly from the effects of the medication without complication or adverse event. Critical Care: None Past Med/Surg History Medical History Anxiety and depression Cavernous hemangioma of brain Remote hx, ? 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" H/O left inguinal hernia repair x3 H/O toe surgery Right toe x6, Left toe x1 (r/t gout) H/O vascular surgery R/L varicose vein ablation History of appendectomy History of carpal tunnel release R/L History of cholecystectomy History of colonoscopy Colonoscopy (07/28/20): MAC at [facility] History of dilatation and curettage History of esophagogastroduodenoscopy (EGD) History of hernia repair Laparoscopic repair left Spigelian hernia with mesh (05/07/18): Grade 2 view, MAC#3, ETT 7.5 at [facility] History of knee replacement procedure of right knee History of repair of hiatal hernia History of tooth extraction History of total abdominal hysterectomy and bilateral salpingo-oophorectomy Rotator cuff arthropathy of left shoulder S/P excision of lipoma Removed from left leg (age 18) Status post wrist surgery Right wrist brian (r/t fracture) Family History Brother Cancer Hypertension Mother Patient's mother is Cancer Sister Hypertension Father No problems noted. Unknown FH: kidney cancer Other Family history non-contributory No family history of adverse response to anesthesia Patient's father is Social History Smoking Status: Never smoker Second Hand Exposure: Yes; Hx Alcohol Use: Yes Alcohol type: hard liquor Hx Substance Use: No Preferred Language: Kiswahili Communication Ability: Effective Moderate Needs Teacher Required: No Beliefs That Will Affect Care: None Current Living Situation: Alone Feels Safe at Home: Yes Assistive Devices: Glasses Allergies Allergies Allergy/AdvReac Type Severity Reaction Status Date / Time amoxicillin Allergy Unknown Rash Verified 09/26/20 10:57 bee venom protein (honey bee) Allergy Unknown Anaphylaxis Verified 09/26/20 10:57 carbamazepine Allergy Unknown Hives Verified 09/26/20 10:57 lamotrigine Allergy Unknown Hives Verified 09/26/20 10:57 Penicillins Allergy Unknown Hives Verified 09/26/20 10:57 Sulfa (Sulfonamide Allergy Unknown Hives, Verified 09/26/20 10:57 Antibiotics) itching, N/V, diarrhea sulfamethoxazole Allergy Unknown Hives, Verified 09/26/20 10:57 itching, N/V, diarrhea trimethoprim Allergy Unknown Hives, Verified 09/26/20 10:57 itching, N/V, diarrhea Home Meds Home Medications Medication Instructions Recorded Confirmed venlafaxine 150 mg 150 mg PO QAM #0 cap 02/10/13 09/26/20 capsule,extended release 24 hr hydrochlorothiazide 25 mg tablet 25 mg PO QAM #0 tab 04/08/13 09/26/20 polyethylene glycol 3350 17 gram 17 g PO DAILY PRN #0 01/09/15 09/26/20 oral powder packet (Miralax) valacyclovir 1 gram tablet 1,000 mg PO UD PRN #0 04/29/16 09/26/20 (Valtrex) cholecalciferol (vitamin D3) 50 2,000 unit PO QAM #0 09/02/17 09/26/20 mcg (2,000 unit) capsule omega 3,5,6,7,9 combination no.1 1 cap PO QAM #0 09/02/17 09/26/20 700 mg-salmon oil 1,500 mg capsule (Complete [place]) psyllium husk (aspartame) 3.4 1 dose PO QAM #0 09/04/17 09/26/20 gram/5.8 gram oral powder (Metamucil [facility]) fluticasone propionate 50 2 sprays INTRANASAL BID #16 gm 11/17/18 09/26/20 mcg/actuation nasal spray,suspension omeprazole 20 mg capsule,delayed 20 mg PO QAM 08/02/19 09/26/20 release aspirin-caffeine 400 mg-32 mg 1 tab PO UD PRN 07/15/20 09/26/20 tablet (Anacin) naproxen sodium 220 mg tablet 220 mg PO Q12H PRN 07/15/20 09/26/20 (Aleve) albuterol sulfate 90 mcg/actuation 2 puff INHALATION UD PRN 07/25/20 09/26/20 aerosol inhaler (Ventolin HFA) methocarbamol 500 mg tablet 500 mg PO Q8H PRN 07/25/20 09/26/20 simvastatin 40 mg tablet 40 mg PO HS 07/25/20 09/26/20 turmeric 400 mg capsule 400 mg PO QAM 07/25/20 09/26/20 lisinopril 10 mg tablet 10 mg PO QAM #0 tab 09/04/20 09/26/20 levetiracetam 250 mg tablet 250 - 500 mg PO BID 09/15/20 09/26/20 meloxicam 15 mg tablet 15 mg PO DAILY PRN 09/15/20 09/26/20 diclofenac sodium 1 % topical gel 2 g TOPICAL QID PRN 09/25/20 09/26/20 magnesium oxide 500 mg tablet 500 mg PO DAILY 09/25/20 09/26/20 baclofen 20 mg tablet 20 mg PO TID PRN 09/26/20 09/26/20 lisinopril 20 mg tablet 20 mg PO QAM 09/26/20 09/26/20 Results & Data (ED) Vital Signs Vital Signs - 24 hr 09/26/20 10:19 09/26/20 10:47 09/26/20 10:50 Temperature 36.8 C Temperature Source Temporal Artery Scan Pulse Rate 76 77 78 Pulse Rate [Left Finger] Pulse Rate from SpO2 Sensor Pulse Rhythm [Left Finger] Pulse Strength [Left Finger] Respiratory Rate 18 Respiratory Effort / Characteristics Respiratory Depth Respiratory Pattern Blood Pressure 174/82 H Blood Pressure [Left Arm] Blood Pressure Mean 112 Blood Pressure Mean [Left Arm] Blood Pressure Position [Left Arm] Pulse Oximetry 95 Oxygen Delivery Method Room Air Oxygen Flow Rate Sepsis Recent Fever Within 48 Hours No Sepsis New/Unexplained Change in Mental Status No Sepsis Action Taken by Nursing No Action Required End-Tidal CO2 End Tidal CO2 (18-54mmHg) Oxygen Flow Rate - Titration Pulse Oximetry Post Tiitration 09/26/20 10:52 09/26/20 10:57 09/26/20 11:11 Temperature Temperature Source Pulse Rate 77 Pulse Rate [Left Finger] 76 75 75 Pulse Rate from SpO2 Sensor 77 Pulse Rhythm [Left Finger] Regular Regular Pulse Strength [Left Finger] Normal Normal Respiratory Rate 18 19 18 Respiratory Effort / Characteristics Non-Labored Non-Labored Spontaneous Non-Labored Spontaneous Respiratory Depth Normal Normal Normal Respiratory Pattern Regular Blood Pressure 148/93 H Blood Pressure [Left Arm] 177/99 H 177/99 H 148/93 H Blood Pressure Mean 111 Blood Pressure Mean [Left Arm] 125 125 111 Blood Pressure Position [Left Arm] Lying Lying Pulse Oximetry 97 98 95 Oxygen Delivery Method Room Air Room Air Room Air Oxygen Flow Rate Sepsis Recent Fever Within 48 Hours Sepsis New/Unexplained Change in Mental Status Sepsis Action Taken by Nursing End-Tidal CO2 30 End Tidal CO2 (18-54mmHg) Oxygen Flow Rate - Titration Pulse Oximetry Post Tiitration 09/26/20 11:15 09/26/20 11:28 09/26/20 12:01 Temperature Temperature Source Pulse Rate 76 74 Pulse Rate [Left Finger] 75 Pulse Rate from SpO2 Sensor 74 Pulse Rhythm [Left Finger] Regular Pulse Strength [Left Finger] Normal Respiratory Rate 16 22 Respiratory Effort / Characteristics Non-Labored Spontaneous Respiratory Depth Normal Respiratory Pattern Blood Pressure 157/119 H Blood Pressure [Left Arm] 148/93 H 148/93 H Blood Pressure Mean 131 Blood Pressure Mean [Left Arm] 111 Blood Pressure Position [Left Arm] Pulse Oximetry 98 98 99 Oxygen Delivery Method Room Air Nasal Cannula Oxygen Flow Rate 4 Sepsis Recent Fever Within 48 Hours Sepsis New/Unexplained Change in Mental Status Sepsis Action Taken by Nursing End-Tidal CO2 38 End Tidal CO2 (18-54mmHg) Oxygen Flow Rate - Titration Pulse Oximetry Post Tiitration 09/26/20 12:02 09/26/20 12:11 09/26/20 12:21 Temperature Temperature Source Pulse Rate 72 75 Pulse Rate [Left Finger] 74 Pulse Rate from SpO2 Sensor 74 75 Pulse Rhythm [Left Finger] Regular Pulse Strength [Left Finger] Normal Respiratory Rate 18 Respiratory Effort / Characteristics Non-Labored Spontaneous Respiratory Depth Normal Respiratory Pattern Regular Blood Pressure 162/106 H 179/85 H Blood Pressure [Left Arm] 159/92 H Blood Pressure Mean 124 116 Blood Pressure Mean [Left Arm] 114 Blood Pressure Position [Left Arm] Lying Pulse Oximetry 100 99 96 Oxygen Delivery Method Nasal Cannula Nasal Cannula Room Air Oxygen Flow Rate 2 2 Sepsis Recent Fever Within 48 Hours Sepsis New/Unexplained Change in Mental Status Sepsis Action Taken by Nursing End-Tidal CO2 35 End Tidal CO2 (18-54mmHg) Oxygen Flow Rate - Titration Pulse Oximetry Post Tiitration 09/26/20 12:30 09/26/20 12:32 09/26/20 12:49 Temperature Temperature Source Pulse Rate 77 Pulse Rate [Left Finger] 75 Pulse Rate from SpO2 Sensor 74 75 Pulse Rhythm [Left Finger] Regular Pulse Strength [Left Finger] Normal Respiratory Rate 19 Respiratory Effort / Characteristics Non-Labored Spontaneous Respiratory Depth Normal Respiratory Pattern Regular Blood Pressure 165/83 H Blood Pressure [Left Arm] 165/83 H Blood Pressure Mean 110 Blood Pressure Mean [Left Arm] 110 Blood Pressure Position [Left Arm] Lying Pulse Oximetry 92 92 90 Oxygen Delivery Method Room Air Room Air Room Air Oxygen Flow Rate Sepsis Recent Fever Within 48 Hours Sepsis New/Unexplained Change in Mental Status Sepsis Action Taken by Nursing End-Tidal CO2 End Tidal CO2 (18-54mmHg) Oxygen Flow Rate - Titration Pulse Oximetry Post Tiitration 09/26/20 12:50 09/26/20 12:53 09/26/20 13:00 Temperature Temperature Source Pulse Rate 74 73 Pulse Rate [Left Finger] 76 74 Pulse Rate from SpO2 Sensor 75 75 Pulse Rhythm [Left Finger] Regular Regular Pulse Strength [Left Finger] Normal Normal Respiratory Rate 22 22 Respiratory Effort / Characteristics Non-Labored Spontaneous Non-Labored Spontaneous Respiratory Depth Normal Normal Respiratory Pattern Regular Regular Blood Pressure 163/89 H Blood Pressure [Left Arm] 151/88 H 163/89 H Blood Pressure Mean 113 Blood Pressure Mean [Left Arm] 109 113 Blood Pressure Position [Left Arm] Lying Pulse Oximetry 90 92 93 Oxygen Delivery Method Room Air Room Air Room Air Oxygen Flow Rate Sepsis Recent Fever Within 48 Hours Sepsis New/Unexplained Change in Mental Status Sepsis Action Taken by Nursing End-Tidal CO2 End Tidal CO2 (18-54mmHg) Oxygen Flow Rate - Titration Pulse Oximetry Post Tiitration 09/26/20 13:09 09/26/20 13:25 09/26/20 13:26 Temperature Temperature Source Pulse Rate Pulse Rate [Left Finger] 76 Pulse Rate from SpO2 Sensor Pulse Rhythm [Left Finger] Regular Pulse Strength [Left Finger] Normal Respiratory Rate 16 Respiratory Effort / Characteristics Non-Labored Spontaneous Respiratory Depth Normal Respiratory Pattern Regular Blood Pressure Blood Pressure [Left Arm] 163/89 H Blood Pressure Mean Blood Pressure Mean [Left Arm] 113 Blood Pressure Position [Left Arm] Pulse Oximetry 88 L 94 98 Oxygen Delivery Method Room Air Oxymask Oxymask Oxygen Flow Rate 2 2 Sepsis Recent Fever Within 48 Hours Sepsis New/Unexplained Change in Mental Status Sepsis Action Taken by Nursing End-Tidal CO2 End Tidal CO2 (18-54mmHg) Oxygen Flow Rate - Titration 2 1 Pulse Oximetry Post Tiitration 91 98 09/26/20 13:31 09/26/20 14:00 09/26/20 14:01 Temperature 36.8 C Temperature Source Oral Pulse Rate 74 76 Pulse Rate [Left Finger] 74 Pulse Rate from SpO2 Sensor 74 Pulse Rhythm [Left Finger] Regular Pulse Strength [Left Finger] Normal Respiratory Rate 16 18 Respiratory Effort / Characteristics Non-Labored Spontaneous Respiratory Depth Normal Respiratory Pattern Blood Pressure 169/91 H 143/85 H Blood Pressure [Left Arm] 143/85 H Blood Pressure Mean 117 104 Blood Pressure Mean [Left Arm] 104 Blood Pressure Position [Left Arm] Lying Pulse Oximetry 99 92 96 Oxygen Delivery Method Oxymask Room Air Oxymask Oxygen Flow Rate 1 2 Sepsis Recent Fever Within 48 Hours Sepsis New/Unexplained Change in Mental Status Sepsis Action Taken by Nursing End-Tidal CO2 End Tidal CO2 (18-54mmHg) Oxygen Flow Rate - Titration Pulse Oximetry Post Tiitration 09/26/20 14:06 09/26/20 14:38 09/26/20 14:40 Temperature Temperature Source Pulse Rate 75 76 Pulse Rate [Left Finger] Pulse Rate from SpO2 Sensor 75 76 Pulse Rhythm [Left Finger] Pulse Strength [Left Finger] Respiratory Rate Respiratory Effort / Characteristics Respiratory Depth Respiratory Pattern Blood Pressure Blood Pressure [Left Arm] Blood Pressure Mean Blood Pressure Mean [Left Arm] Blood Pressure Position [Left Arm] Pulse Oximetry 88 L 95 98 Oxygen Delivery Method Room Air Oxymask Oxymask Oxygen Flow Rate 2 2 Sepsis Recent Fever Within 48 Hours Sepsis New/Unexplained Change in Mental Status Sepsis Action Taken by Nursing End-Tidal CO2 38 46 End Tidal CO2 (18-54mmHg) Oxygen Flow Rate - Titration 2 Pulse Oximetry Post Tiitration 97 09/26/20 14:53 09/26/20 15:10 09/26/20 15:16 Temperature Temperature Source Pulse Rate Pulse Rate [Left Finger] 74 74 75 Pulse Rate from SpO2 Sensor Pulse Rhythm [Left Finger] Pulse Strength [Left Finger] Respiratory Rate 22 17 19 Respiratory Effort / Characteristics Non-Labored Spontaneous Respiratory Depth Normal Respiratory Pattern Regular Blood Pressure Blood Pressure [Left Arm] 143/99 H 139/107 H 157/91 H Blood Pressure Mean Blood Pressure Mean [Left Arm] 113 117 113 Blood Pressure Position [Left Arm] Lying Pulse Oximetry 97 96 98 Oxygen Delivery Method Oxymask Oxymask Oxymask Oxygen Flow Rate 2 2 2 Sepsis Recent Fever Within 48 Hours Sepsis New/Unexplained Change in Mental Status Sepsis Action Taken by Nursing End-Tidal CO2 End Tidal CO2 (18-54mmHg) 37 Oxygen Flow Rate - Titration Pulse Oximetry Post Tiitration 09/26/20 15:21 09/26/20 15:25 09/26/20 15:31 Temperature Temperature Source Pulse Rate Pulse Rate [Left Finger] 75 75 77 Pulse Rate from SpO2 Sensor Pulse Rhythm [Left Finger] Pulse Strength [Left Finger] Respiratory Rate 20 19 16 Respiratory Effort / Characteristics Respiratory Depth Respiratory Pattern Blood Pressure Blood Pressure [Left Arm] 142/99 H 155/95 H 141/93 H Blood Pressure Mean Blood Pressure Mean [Left Arm] 113 115 109 Blood Pressure Position [Left Arm] Pulse Oximetry 98 98 96 Oxygen Delivery Method Oxymask Oxymask Oxymask Oxygen Flow Rate 2 2 2 Sepsis Recent Fever Within 48 Hours Sepsis New/Unexplained Change in Mental Status Sepsis Action Taken by Nursing End-Tidal CO2 End Tidal CO2 (18-54mmHg) 42 39 Oxygen Flow Rate - Titration Pulse Oximetry Post Tiitration 09/26/20 15:35 09/26/20 15:41 09/26/20 15:52 Temperature Temperature Source Pulse Rate Pulse Rate [Left Finger] 78 78 Pulse Rate from SpO2 Sensor Pulse Rhythm [Left Finger] Pulse Strength [Left Finger] Respiratory Rate 19 12 Respiratory Effort / Characteristics Respiratory Depth Respiratory Pattern Blood Pressure Blood Pressure [Left Arm] 138/86 139/77 Blood Pressure Mean Blood Pressure Mean [Left Arm] 103 97 Blood Pressure Position [Left Arm] Pulse Oximetry 94 94 93 Oxygen Delivery Method Room Air Room Air Room Air Oxygen Flow Rate Sepsis Recent Fever Within 48 Hours Sepsis New/Unexplained Change in Mental Status Sepsis Action Taken by Nursing End-Tidal CO2 End Tidal CO2 (18-54mmHg) 42 Oxygen Flow Rate - Titration Pulse Oximetry Post Tiitration 09/26/20 15:56 09/26/20 16:01 09/26/20 16:16 Temperature Temperature Source Pulse Rate Pulse Rate [Left Finger] 77 75 72 Pulse Rate from SpO2 Sensor Pulse Rhythm [Left Finger] Pulse Strength [Left Finger] Respiratory Rate 16 20 16 Respiratory Effort / Characteristics Respiratory Depth Respiratory Pattern Blood Pressure Blood Pressure [Left Arm] 146/105 H 130/96 118/64 Blood Pressure Mean Blood Pressure Mean [Left Arm] 118 107 82 Blood Pressure Position [Left Arm] Pulse Oximetry 94 93 91 Oxygen Delivery Method Room Air Room Air Room Air Oxygen Flow Rate Sepsis Recent Fever Within 48 Hours Sepsis New/Unexplained Change in Mental Status Sepsis Action Taken by Nursing End-Tidal CO2 End Tidal CO2 (18-54mmHg) Oxygen Flow Rate - Titration Pulse Oximetry Post Tiitration 09/26/20 17:36 Temperature Temperature Source Pulse Rate Pulse Rate [Left Finger] 69 Pulse Rate from SpO2 Sensor Pulse Rhythm [Left Finger] Regular Pulse Strength [Left Finger] Normal Respiratory Rate 16 Respiratory Effort / Characteristics Non-Labored Spontaneous Respiratory Depth Normal Respiratory Pattern Regular Blood Pressure Blood Pressure [Left Arm] 142/87 H Blood Pressure Mean Blood Pressure Mean [Left Arm] 105 Blood Pressure Position [Left Arm] Lying Pulse Oximetry 98 Oxygen Delivery Method Oxymask Oxygen Flow Rate 2 Sepsis Recent Fever Within 48 Hours Sepsis New/Unexplained Change in Mental Status Sepsis Action Taken by Nursing End-Tidal CO2 End Tidal CO2 (18-54mmHg) Oxygen Flow Rate - Titration Pulse Oximetry Post Tiitration Laboratory Data Lab Results 09/26/20 09/26/20 Range/Units 11:41 11:41 COVID-19 Eval Order Covid19 at [facility] SARS-CoV-2 (PCR) NEGATIVE (Negative) Administered Medications Hydromorphone HCl (Hydromorphone Inj 0.5 Mg/0.5 Ml Syr) 0.5 mg IV Q15M PRN PRN Reason: Pain Stop: 10/10/20 10:37 Last Admin: 09/26/20 13:12 Dose: 0.5 mg Documented by: [id number] Admin: 09/26/20 12:05 Dose: 0.5 mg Documented by: [id number] Admin: 09/26/20 11:05 Dose: 0.5 mg Documented by: [id number] Discontinued Medications Diphenhydramine HCl (Diphenhydramine 50 Mg/Ml Vial) 25 mg IV NOW STA Stop: 09/26/20 12:25 Last Admin: 09/26/20 13:01 Dose: 25 mg Documented by: [id number] Droperidol (Droperidol 5 Mg/2 Ml Vial) 0.625 mg IV ONE STA Stop: 09/26/20 12:25 Last Admin: 09/26/20 15:54 Dose: 0.625 mg Documented by: [id number] Droperidol (Droperidol 5 Mg/2 Ml Vial) Confirm Administered Dose 5 mg .ROUTE .STK-MED ONE Stop: 09/26/20 15:52 Last Admin: 09/26/20 15:54 Dose: Not Given Documented by: [id number] Sodium Chloride (Nss) 500 mls @ 999 mls/hr IV .Q31M ONE Stop: 09/26/20 11:05 Last Infusion: 09/26/20 12:06 Dose: 0 mls/hr Documented by: [id number] Admin: 09/26/20 11:03 Dose: 999 mls/hr Documented by: [id number] Acetaminophen (Ofirmev) 1,000 mg in 100 mls @ 400 mls/hr IV NOW STA Stop: 09/26/20 10:52 Last Infusion: 09/26/20 12:05 Dose: 0 mls/hr Documented by: [id number] Admin: 09/26/20 11:05 Dose: 400 mls/hr Documented by: [id number] Magnesium Sulfate/Dextrose (Magnesium Sulfate / D5w) 1 gm in 100 mls @ 100 mls/hr IV NOW STA Stop: 09/26/20 13:23 Last Infusion: 09/26/20 14:03 Dose: 0 mls/hr Documented by: [id number] Admin: 09/26/20 13:02 Dose: 100 mls/hr Documented by: [id number] Sodium Chloride (Nss 1000ml) 500 mls @ 999 mls/hr IV .Q31M ONE Stop: 09/26/20 14:48 Last Infusion: 09/26/20 15:45 Dose: 0 mls/hr Documented by: [id number] Admin: 09/26/20 14:28 Dose: 999 mls/hr Documented by: [id number] Ketamine HCl (Ketamine Hcl Inj 50 Mg/Ml 10 Ml Vial) 50 mg IV NOW STA Stop: 09/26/20 10:34 Last Admin: 09/26/20 11:15 Dose: 50 mg Documented by: [id number] Ketamine HCl (Ketamine Hcl Inj 50 Mg/Ml 10 Ml Vial) 50 mg IV NOW STA Stop: 09/26/20 14:18 Last Admin: 09/26/20 14:29 Dose: 50 mg Documented by: [id number] Ketorolac Tromethamine (Ketorolac 30 Mg/Ml Vial) 30 mg IV NOW ONE Stop: 09/26/20 15:49 Last Admin: 09/26/20 15:54 Dose: 30 mg Documented by: [id number] Ondansetron HCl (Ondansetron Inj 2 Mg/Ml 2 Ml Vial) 4 mg IV NOW STA Stop: 09/26/20 10:34 Last Admin: 09/26/20 11:05 Dose: 4 mg Documented by: [id number] Propofol (Propofol Iv Emulsion 10 Mg/Ml 20 Ml Vial) 50 mg IV NOW STA Stop: 09/26/20 10:34 Last Admin: 09/26/20 11:17 Dose: 50 mg Documented by: [id number] Cosigned by: [id number] Propofol (Propofol Iv Emulsion 10 Mg/Ml 20 Ml Vial) 155 mg IV NOW STA Stop: 09/26/20 12:26 Last Admin: 09/26/20 11:27 Dose: 155 mg Documented by: [id number] Cosigned by: [id number] Propofol (Propofol Iv Emulsion 10 Mg/Ml 20 Ml Vial) 100 mg IV NOW STA Stop: 09/26/20 14:18 Last Admin: 09/26/20 14:31 Dose: 100 mg Documented by: [id number] Cosigned by: [id number] Imaging Data Radiologist's Impression: Shoulder X-Ray 09/26/20 10:33 XR shoulder RT min 2V routine HISTORY: 65 years-old Female Rt shoulder post reduction acute right shoulder pain COMPARISON: Right shoulder radiographs of same day at 9:20 AM TECHNIQUE: 3 views of the right shoulder FINDINGS: Anteroinferior dislocation of the humerus with acute appearing Hill-Sachs deformity and age- indeterminate bony Bankart fracture. Chronic widening of the right AC joint. IMPRESSION: 1. Persistent anteroinferior dislocation of the humerus. 2. Acute Hill-Sachs deformity with age-indeterminate bony Bankart fracture. ACT 112: Negative or not required by law. The above report was generated using voice recognition software. It may contain grammatical, syntax or spelling errors. Electronically signed by: Tariq Carreno M.D. 09/26/2020 11:[address] 09/26/20 11:24 CT shoulder RT wo con CT DOSE: 967.39 mGy.cm CLINICAL HISTORY: dislocation/reduction/ fall TECHNIQUE: A dose lowering technique was utilized adhering to the principles of ALARA. COMPARISON STUDY: None. Correlation is made with radiograph of the right shoulder performed on October 23, 2020 at 11:08 hours. FINDINGS: Right humeral head is dislocated anteriorly and inferiorly in relation to glenoid. Hill-Sachs deformity of the of the superior lateral aspect of the right humeral head is seen. Few subchondral cysts are seen within humeral head representing degenerative process. Slightly displaced fracture of inferior aspect of the right glenoid and mild inferior displacement of the fractured fragment is seen. No other fractures are seen however evaluation is limited due to diffuse osteopenia. There is fluid collection is seen surrounding right shoulder. Visualized portion of the right lung shows no evidence of pneumothorax and mild atelectasis at dependent portion of the right lung. IMPRESSION: 1. Right humeral head is displaced anteriorly and inferiorly to the glenoid, shows Hill-Sachs deformity and degenerative changes. 2. Slightly displaced fracture of inferior aspect of the right glenoid. 3. No other fractures seen. 4. The rest of findings as detailed above. ACT 112: Negative or not required by law. The above report was generated using voice recognition software. It may contain grammatical, syntax or spelling errors. Electronically signed by: Kiersten Huang DO 09/26/2020 1:04 PM Shoulder X-Ray 09/26/20 14:46 RIGHT SHOULDER 3 VIEWS CLINICAL HISTORY: Postreduction examination. FINDINGS: 3 portable views of the right shoulder are compared to shoulder radiographs and CT performed earlier the same day 09/26/2020. The skeletal structures are osteopenic. There has been successful reduction of the dislocated right shoulder with christianity of near-anatomic alignment. There is fracture along the inferior aspect of the glenoid with displaced fragments. The right proximal humerus is intact as visualized. Fractures were much better assessed on today's CT scan. There is widening at the acromioclavicular joint. Mild overlying soft tissue edema is noted. The right lung parenchyma is clear as visualized. IMPRESSION: 1. There has been successful reduction of the dislocated right shoulder with christianity of near-anatomic alignment. 2. Inferior glenoid fracture with displaced bony fragments. Fractures were much better assessed on today's CT scan. Electronically signed by: Caleb Kirk M.D. 09/26/2020 3:[address] 09/26/20 14:48 CT SCAN OF THE RIGHT SHOULDER WITHOUT IV CONTRAST CLINICAL HISTORY: Postreduction examination. COMPARISON STUDY: Radiographs and CT of the right shoulder performed earlier the same day 09/26/2020. TECHNIQUE: CT scan of the right shoulder is performed from the lower neck to the humeral shaft. Images are reviewed in the axial, sagittal, and coronal planes. IV contrast was not administered for this examination. A dose lowering technique was utilized adhering to the principles of ALARA. CT DOSE: 836.60 mGy.cm FINDINGS: The skeletal structures are osteopenic. There has been successful reduction of the dislocated right shoulder with christianity of near-anatomic alignment. There is a Hill-Sachs lesion in the right humeral head. Again seen is fracture along the inferior aspect of the glenoid. A large avulsed fragment from the anterior/inferior glenoid is within the posterior joint space. The fragment measures up to 1.5 cm as seen on image #77. Additional tiny osseous fragments are noted. There is associated hemarthrosis. Postoperative change is noted in the humeral head. Widening of the acromioclavicular joint is likely chronic. Hemorrhage is noted within the right axillary soft tissues, and blood products are also seen tracking along the posterior aspect of the deltoid muscle. No large/organized hematoma is identified. No lytic or blastic lesion is seen. There is no right axillary lymphadenopathy. The visualized right upper lung parenchyma appears clear. IMPRESSION: 1. There has been successful reduction of the dislocated right shoulder with christianity of near-anatomic alignment. 2. There is a Hill-Sachs fracture, as well as a bony Bankart fracture of the glenoid as above. 3. There is a large displaced fragment of the anterior/inferior glenoid. 4. There is hemarthrosis, as well as hemorrhage within the overlying musculature and right axillary region. 5. No large/organized hematoma is identified. ACT 112: Negative or not required by law. Dictated: 09/26/2020 3:29 PM Transcribed: 09/26/2020 3:53 PM Mita [id number] [facility] Electronically signed by: Caleb Kirk M.D. 09/26/2020 3:57 PM Shoulder MRI 09/26/20 15:41 MRI OF THE RIGHT SHOULDER WITHOUT CONTRAST CLINICAL HISTORY: Right shoulder dislocation. COMPARISON STUDY: MRI of the right shoulder March 03, 2020. Right shoulder and right shoulder radiographs performed earlier today. TECHNIQUE: Utilizing a 1.5 Megan magnet and dedicated coil, multiplanar, multiecho imaging of the right shoulder was performed without intravenous or intraarticular contrast. FINDINGS: This exam is significantly compromised by motion artifact. There are postoperative findings from previous rotator cuff repair. A full thickness tear of supraspinatus is noted with approximately 2.2 cm of tendon retraction. There is marked muscular atrophy of supraspinatus. There is also suspected full- thickness tear of infraspinatus with tendon retraction and muscular atrophy. There is at least partial thickness tear subscapularis tear with atrophy. Teres minor is intact. The cuff is suboptimally assessed on this exam. Note is made of marrow edema within the posterior lateral aspect of the right humeral head. This suggests a Hill-Sachs impaction fracture. There is also an acute fracture of the anterior inferior glenoid with an associated 1.5 cm bone fragment within the posterior aspect of the joint space as shown on CT. There is a moderate size joint effusion which appears complex. There is significant edema within the adjacent soft tissues, including the deltoid. A complex labral tear is noted. Proximal long head of the biceps tendon is not well visualized. This suggests a tear. There is moderate osteoarthritis of the glenohumeral joint. IMPRESSION: 1. Anatomic alignment of the right glenohumeral joint post reduction. Hill-Sachs impaction fracture and acute bony Bankart with an associated 1.5 cm bone fragment arising from the anterior inferior glenoid. Moderate size complex joint effusion. Adjacent soft tissue edema, as described above. 2. Exam significantly compromised by motion artifact. Previous rotator cuff repair. Full-thickness tears of supraspinatus and infraspinatus with tendon retraction and muscular atrophy, as described above. 3. Diminutive irregular labrum suggestive of a complex labral tear. Suspected tear of the proximal long head biceps tendon. 4. Moderate osteoarthritis of the right glenohumeral joint. ACT 112: Negative or not required by law. Electronically signed by: Huang Narayan M.D. 09/26/2020 5:35 PM Discharge Plan Visit Data Chief Complaint: Shoulder Dislocation Stated Complaint: RT SHOULDER DISLOCATION ED Provider: Jordon Flores Discharge Problem: Dislocated shoulder, Glenoid fracture of shoulder Patient Disposition: Admitted As Inpatient Forms Stand Alone Forms: [facility] Prescriptions Prescriptions: No Action venlafaxine 150 mg Capsule,Extended Release 24hr 150 mg PO QAM Qty: 0 RF: 0 hydrochlorothiazide 25 mg Tablet 25 mg PO QAM Qty: 0 RF: 0 polyethylene glycol 3350 [Miralax] 17 gram Powder In Packet 17 g PO DAILY PRN (Reason: Constipation) Qty: 0 RF: 0 valacyclovir [Valtrex] 1 gram Tablet 1,000 mg PO UD PRN (Reason: Cold Sores) Qty: 0 RF: 0 cholecalciferol (vitamin D3) 2,000 unit Capsule 2,000 unit PO QAM Qty: 0 RF: 0 Complete [place] 700-1,500 mg-mg Capsule 1 cap PO QAM Qty: 0 RF: 0 Metamucil [facility] Fiber 3.4 gram/5.8 gram Powder 1 dose PO QAM Qty: 0 RF: 0 lisinopril 10 mg tablet 10 mg PO QAM Qty: 0 RF: 0 fluticasone propionate 50 mcg/actuation spray,suspension 2 sprays intranasal BID Qty: 16 RF: 0 omeprazole 20 mg Capsule,Delayed Release(Dr/Ec) 20 mg PO QAM RF: 0 methocarbamol 500 mg Tablet 500 mg PO Q8H PRN (Reason: Pain) RF: 0 simvastatin 40 mg Tablet 40 mg PO HS RF: 0 albuterol sulfate [Ventolin HFA] 90 mcg/actuation Hfa Aerosol Inhaler 2 puff INHALATION UD PRN (Reason: SHORT OF BREATH) RF: 0 turmeric 400 mg Capsule 400 mg PO QAM RF: 0 lisinopril 20 mg tablet 20 mg PO QAM RF: 0 baclofen 20 mg tablet 20 mg PO TID PRN (Reason: Muscle Spasm) RF: 0 naproxen sodium [Aleve] 220 mg Tablet 220 mg PO Q12H PRN (Reason: Pain) RF: 0 Anacin 400-32 mg Tablet 1 tab PO UD PRN (Reason: Pain) RF: 0 meloxicam 15 mg tablet 15 mg PO DAILY PRN (Reason: pain) RF: 0 levetiracetam 250 mg tablet 250 - 500 mg PO BID RF: 0 magnesium oxide 500 mg Tablet 500 mg PO DAILY RF: 0 diclofenac sodium [Voltaren] 1 % Gel 2 g TOPICAL QID PRN (Reason: Pain) RF: 0 Referrals Referrals: Cookie Correia CRNP [Primary Care Provider] - Discharge Problem: Dislocated shoulder Qualifiers: Encounter type: initial encounter Laterality: right Qualified Code(s): S43.004A - Unspecified dislocation of right shoulder joint, initial encounter Glenoid fracture of shoulder Qualifiers: Encounter type: initial encounter Fracture type: closed Laterality: right Qualified Code(s): S42.141A - Displaced fracture of glenoid cavity of scapula, right shoulder, initial encounter for closed fracture
[2020-09-26] MEDS ORDERED: SODIUM CHLORIDE 0.9% 1000ML 500 ML IV ONE (14:18)
--- NOTE | 2020-09-26 15:02 | XRay Report ---
RIGHT SHOULDER 3 VIEWS CLINICAL HISTORY: Postreduction examination. FINDINGS: 3 portable views of the right shoulder are compared to shoulder radiographs and CT performe d earlier the same day 09/26/2020. The skeletal structures are osteopenic. There has been successful re duction of the dislocated right shoulder with jewish of near-anatomic alignment. There is fractu re along the inferior aspect of the glenoid with displaced fragments. The right proximal humerus is i ntact as visualized. Fractures were much better assessed on today's CT scan. There is widening at the acromioclavicular joint. Mild overlying soft tissue edema is noted. The right lung parenchyma is kimber ar as visualized. IMPRESSION: 1. There has been successful reduction of the dislocated right shoulder with jewish of near-paul omic alignment. 2. Inferior glenoid fracture with displaced bony fragments. Fractures were much better assessed on to day's CT scan. Electronically signed by: Caleb Kirk M.D. 09/26/2020 3:01 PM
[2020-09-26] MEDS ORDERED: KETOROLAC 30 MG/ML VIAL IV ONE (15:48)
[2020-09-26] MEDS ORDERED: DROPERIDOL 5 MG/2 ML VIAL ONE (15:51)
--- NOTE | 2020-09-26 15:59 | CT Scan Report ---
CT SCAN OF THE RIGHT SHOULDER WITHOUT IV CONTRAST CLINICAL HISTORY: Postreduction examination. COMPARISON STUDY: Radiographs and CT of the right shoulder performed earlier the same day 09/26/2020. TECHNIQUE: CT scan of the right shoulder is performed from the lower neck to the humeral shaft. Image s are reviewed in the axial, sagittal, and coronal planes. IV contrast was not administered for this examination. A dose lowering technique was utilized adhering to the principles of ALARA. CT DOSE: 836.60 mGy.cm FINDINGS: The skeletal structures are osteopenic. There has been successful reduction of the dislocat ed right shoulder with adventism of near-anatomic alignment. There is a Hill-Sachs lesion in the ri ght humeral head. Again seen is fracture along the inferior aspect of the glenoid. A large avulsed fr agment from the anterior/inferior glenoid is within the posterior joint space. The fragment measures up to 1.5 cm as seen on image #77. Additional tiny osseous fragments are noted. There is associated h emarthrosis. Postoperative change is noted in the humeral head. Widening of the acromioclavicular cherie nt is likely chronic. Hemorrhage is noted within the right axillary soft tissues, and blood products are also seen tracking along the posterior aspect of the deltoid muscle. No large/organized hematoma is identified. No lytic or blastic lesion is seen. There is no right axillary lymphadenopathy. The vi sualized right upper lung parenchyma appears clear. IMPRESSION: 1. There has been successful reduction of the dislocated right shoulder with adventism of near-paul omic alignment. 2. There is a Hill-Sachs fracture, as well as a bony Bankart fracture of the glenoid as above. 3. There is a large displaced fragment of the anterior/inferior glenoid. 4. There is hemarthrosis, as well as hemorrhage within the overlying musculature and right axillary r egion. 5. No large/organized hematoma is identified. ACT 112: Negative or not required by law. Dictated: 09/26/2020 3:29 PM Transcribed: 09/26/2020 3:53 PM Mita [id number] [email or web address] Electronically signed by: Caleb Kirk M.D. 09/26/2020 3:57 PM
--- NOTE | 2020-09-26 16:08 | History & Physical Report ---
Date of Service September 26, 2020 Assessment & Plan (1) Bankart lesion of right shoulder: Plan: Patient will be admitted to [facility] today. She will plan to undergo an open reduction internal fixation of her right glenoid fracture with Dr. Cardozo on September 27, 2020 at [facility]. She will be made n.p.o. after midnight. We will obtain a preoperative CBC, BMP, PT, PTT, EKG. She does not require any preoperative medical clearance. She may be out of bed as tolerated with assistance. She needs to keep her right arm in her sling at all times. She can ice to the right shoulder as needed for comfort. No range of motion of her right shoulder or arm at all. Sling is in place. She may be comfortable with her head of bed elevated. Her Covid test is negative. She is aware of the COVID-19 risks. She is currently asymptomatic of any COVID-19 symptoms. She understands and agrees with the plan. Informed consent was not obtained today due to her having recent sedation and being a little disoriented. We will obtain preoperative consent tomorrow. She may have a regular diet. All questions were answered and we will reassess and re-explain things tomorrow as necessary. Right now she understands and agrees with the plan. History of Present Illness Chief Complaint: Right shoulder pain/dislocation Primary Care Provider: TED Ryder Patient is a 65-year-old female who is presented to the emergency room today from our office with a right shoulder dislocation. She states that yesterday she fell outside of [facility] on uneven concrete. She landed directly onto her right arm. She does not recall any other injuries. She presented to the emergency room after that fall and x-rays of her right shoulder were obtained. She was found to have a right shoulder dislocation at that time. There were multiple attempts at reducing the shoulder and she was sent home in a sling with the assumption that the shoulder was reduced. She states that she did have pain that was really unchanged throughout the entire night. She did have an incident where she raised her arm up overhead and felt some crunching sounds. She did not have any resolution or worsening of her pain after that. She presented to our office for an outpatient dressing change of her left hand that she recently had a trigger digit release on on September 21, 2020. She informed us of her shoulder dislocation. We did obtain new x-rays in the office as an outpatient today which showed recurrent dislocation of her right shoulder. She was advised to go to the directly to the emergency room. Multiple reduction attempts were obtained in the emergency room today they were unable to get it completely reduced or at least keep it reduced. She had a CT scan with her shoulder dislocated. We were asked to come up and see her to possibly think about taking her to the operating room. Another conscious sedation and reduction of her shoulder was obtained. The shoulder was reduced. A CT scan was performed post reduction which showed bony fragment in her glenohumeral joint. We will also order an MRI which will be obtained during her admission. Due to the finding of the bony fragment in her joint surgical invention was recommended. She will be admitted to [facility] today for plans for open reduction internal fixation of her right glenoid fracture with Dr. Cardozo on September 27, 2020. She understands and agrees to proceed with surgery. Allergies Allergy/AdvReac Type Severity Reaction Status Date / Time amoxicillin Allergy Unknown Rash Verified 09/26/20 10:57 bee venom protein (honey bee) Allergy Unknown Anaphylaxis Verified 09/26/20 10:57 carbamazepine Allergy Unknown Hives Verified 09/26/20 10:57 lamotrigine Allergy Unknown Hives Verified 09/26/20 10:57 Penicillins Allergy Unknown Hives Verified 09/26/20 10:57 Sulfa (Sulfonamide Allergy Unknown Hives, Verified 09/26/20 10:57 Antibiotics) itching, N/V, diarrhea sulfamethoxazole Allergy Unknown Hives, Verified 09/26/20 10:57 itching, N/V, diarrhea trimethoprim Allergy Unknown Hives, Verified 09/26/20 10:57 itching, N/V, diarrhea Home Medications Medication Instructions Recorded Confirmed Type venlafaxine 150 mg 150 mg PO QAM #0 cap 02/10/13 09/26/20 History capsule,extended release 24 hr hydrochlorothiazide 25 mg tablet 25 mg PO QAM #0 tab 04/08/13 09/26/20 History polyethylene glycol 3350 17 gram 17 g PO DAILY PRN #0 01/09/15 09/26/20 History oral powder packet (Miralax) valacyclovir 1 gram tablet 1,000 mg PO UD PRN #0 03/06/17 08/03/21 History (Valtrex) cholecalciferol (vitamin D3) 50 2,000 unit PO QAM #0 09/02/17 09/26/20 History mcg (2,000 unit) capsule omega 3,5,6,7,9 combination no.1 1 cap PO QAM #0 09/02/17 09/26/20 History 700 mg-salmon oil 1,500 mg capsule (Complete [place]) psyllium husk (aspartame) 3.4 1 dose PO QAM #0 09/04/17 09/26/20 History gram/5.8 gram oral powder (Metamucil [facility]) fluticasone propionate 50 2 sprays INTRANASAL BID #16 gm 11/17/18 09/26/20 History mcg/actuation nasal spray,suspension omeprazole 20 mg capsule,delayed 20 mg PO QAM 08/02/19 09/26/20 History release aspirin-caffeine 400 mg-32 mg 1 tab PO UD PRN 07/15/20 09/26/20 History tablet (Anacin) naproxen sodium 220 mg tablet 220 mg PO Q12H PRN 07/15/20 09/26/20 History (Aleve) albuterol sulfate 90 mcg/actuation 2 puff INHALATION UD PRN 07/25/20 09/26/20 History aerosol inhaler (Ventolin HFA) methocarbamol 500 mg tablet 500 mg PO Q8H PRN 07/25/20 09/26/20 History simvastatin 40 mg tablet 40 mg PO HS 07/25/20 09/26/20 History turmeric 400 mg capsule 400 mg PO QAM 07/25/20 09/26/20 History lisinopril 10 mg tablet 10 mg PO QAM #0 tab 09/04/20 09/26/20 History levetiracetam 250 mg tablet 250 - 500 mg PO BID 09/15/20 09/26/20 History meloxicam 15 mg tablet 15 mg PO DAILY PRN 09/15/20 09/26/20 History diclofenac sodium 1 % topical gel 2 g TOPICAL QID PRN 09/25/20 09/26/20 History magnesium oxide 500 mg tablet 500 mg PO DAILY 09/25/20 09/26/20 History baclofen 20 mg tablet 20 mg PO TID PRN 09/26/20 09/26/20 History lisinopril 20 mg tablet 20 mg PO QAM 09/26/20 09/26/20 History Past Med/Surg History Medical History Anxiety and depression Cavernous hemangioma of brain Remote hx, ? 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" H/O left inguinal hernia repair x3 H/O toe surgery Right toe x6, Left toe x1 (r/t gout) H/O vascular surgery R/L varicose vein ablation History of appendectomy History of carpal tunnel release R/L History of cholecystectomy History of colonoscopy Colonoscopy (07/28/20): MAC at [facility] History of dilatation and curettage History of esophagogastroduodenoscopy (EGD) History of hernia repair Laparoscopic repair left Spigelian hernia with mesh (05/07/18): Grade 2 view, MAC#3, ETT 7.5 at [facility] History of knee replacement procedure of right knee History of repair of hiatal hernia History of tooth extraction History of total abdominal hysterectomy and bilateral salpingo-oophorectomy Rotator cuff arthropathy of left shoulder S/P excision of lipoma Removed from left leg (age 18) Status post wrist surgery Right wrist brian (r/t fracture) Family History Brother Cancer Hypertension Mother Patient's mother is Cancer Sister Hypertension Father No problems noted. Unknown FH: kidney cancer Other Family history non-contributory No family history of adverse response to anesthesia Patient's father is Social History Smoking Status: Never smoker Second Hand Exposure: Yes; Hx Alcohol Use: Yes Alcohol type: hard liquor Hx Substance Use: No Preferred Language: Bulgarian Communication Ability: Effective Revenue Collector Required: No Beliefs That Will Affect Care: None Current Living Situation: Alone Feels Safe at Home: Yes Assistive Devices: Glasses Review of Systems Constitutional: no fever and no chills Eyes: + corrective lenses Ear, Nose, Mouth, Throat: no ear pain, no tinnitus, no hearing loss, no dizziness, no sinus pain/pressure, no dental pain, no pain with swallowing and no neck lump Respiratory: no cough, no chest congestion, no dyspnea on exertion and no pain on inspiration Cardiovascular: no chest pain, no chest pain at rest, no chest pain with activity and no dyspnea Gastrointestinal: no abdominal pain, no belching, no bloating, no heartburn, no nausea and no vomiting Genitourinary: no dysuria, no difficulty urinating and no urinary urgency Musculoskeletal: + joint pain (right shoulder) and + limited range of motion (Right shoulder); no back pain, no neck pain, no swelling and no muscle atrophy Integumentary: no rash Neurologic: + falls and + headache(s); no gait abnormality, no localized weakness, no numbness, no paresthesia and no syncope Psychiatric: no behavioral changes, no depression and no hopelessness Endocrine: no fatigue, no change in body appearance, no cold intolerance and no heat intolerance Hematologic / Lymphatic: no easy bleeding and no easy bruising Allergy / Immunological: no GI upset with certain foods, no throat swelling and no tongue swelling Physical Exam Constitutional: WD/WN, vitals as above Eyes: PERRL, conjunctivae normal, anicteric sclerae ENMT: external ear and nose normal, oropharynx normal Neck: trachea midline, no thyromegaly Respiratory: normal respiratory effort, lungs clear to auscultation Cardiovascular: RRR, no murmur, no edema Chest (Breasts): Chest: normal inspection of chest Additional Comments: Ecchymosis in her axilla and right side of her chest and breast tissue. Mild tenderness with palpation in her axilla. Gastrointestinal (Abdomen): normal bowel sounds, soft, nontender, no hepatosplenomegaly Musculoskeletal: Exam focused on her right upper extremity: She has distal neurovascular function is normal of her right upper extremity today. She tolerates full range of motion of her fingers with flexion extension. She tolerates full range of motion of her wrist with flexion and extension. She is nontender at her hand wrist or forearm. She has no tenderness at her elbow and does have pain with flexion extension of her elbow today. She has pain with any type of movement of her right shoulder joint. She has tenderness with palpation across her shoulder diffusely. No visible deformity. No muscular atrophy. Ecchymosis noted. She is nontender with her palpation of her upper arm, biceps tendon is or triceps. She has no evidence of trauma of her right elbow. No olecranon bursal effusion. Postreduction and light sedation we are able to pas sively internally externally rotate the shoulder. Skin: no rashes, warm and dry Neurologic: patellar DTR's 2+ bilat, sensation intact Psychiatric: A+Ox3, euthymic affect Results & Data Results & Data ([facility]) Vital Signs (Past 12 Hours) Vital Signs Temp Pulse Pulse Resp BP BP Pulse Ox 09/26/20 15:52 78 12 139/77 93 09/26/20 15:41 78 19 138/86 94 09/26/20 15:35 94 09/26/20 15:31 77 16 141/93 H 96 09/26/20 15:25 75 19 155/95 H 98 09/26/20 15:21 75 20 142/99 H 98 09/26/20 15:16 75 19 157/91 H 98 09/26/20 15:10 74 17 139/107 H 96 09/26/20 14:53 74 22 143/99 H 97 09/26/20 14:40 76 98 09/26/20 14:38 75 95 09/26/20 14:06 88 L 09/26/20 14:01 76 18 143/85 H 96 09/26/20 14:00 36.8 C 74 16 143/85 H 92 09/26/20 13:31 74 169/91 H 99 09/26/20 13:26 98 09/26/20 13:25 76 16 163/89 H 94 09/26/20 13:09 88 L 09/26/20 13:00 73 74 22 163/89 H 163/89 H 93 09/26/20 12:53 76 22 151/88 H 92 09/26/20 12:50 74 90 09/26/20 12:49 90 09/26/20 12:32 77 165/83 H 92 09/26/20 12:30 75 19 165/83 H 92 09/26/20 12:21 75 179/85 H 96 09/26/20 12:11 72 162/106 H 99 09/26/20 12:02 74 18 159/92 H 100 09/26/20 12:01 74 157/119 H 99 09/26/20 11:28 75 22 148/93 H 98 09/26/20 11:15 76 16 148/93 H 98 09/26/20 11:11 77 75 18 148/93 H 148/93 H 95 09/26/20 10:57 75 19 177/99 H 98 09/26/20 10:52 76 18 177/99 H 97 09/26/20 10:50 78 09/26/20 10:47 77 09/26/20 10:19 36.8 C 76 18 174/82 H 95 Laboratory Results 09/26/20 09/26/20 Range/Units 11:41 11:41 COVID-19 Eval Order Covid19 at [facility] SARS-CoV-2 (PCR) NEGATIVE (Negative) Diagnostic Findings RIGHT SHOULDER 3 VIEWS CLINICAL HISTORY: Postreduction examination. FINDINGS: 3 portable views of the right shoulder are compared to shoulder radiographs and CT performed earlier the same day 09/26/2020. The skeletal structures are osteopenic. There has been successful reduction of the dislocated right shoulder with restorationism of near-anatomic alignment. There is fracture along the inferior aspect of the glenoid with displaced fragments. The right proximal humerus is intact as visualized. Fractures were much better assessed on today's CT scan. There is widening at the acromioclavicular joint. Mild overlying soft tissue edema is noted. The right lung parenchyma is clear as visualized. IMPRESSION: 1. There has been successful reduction of the dislocated right shoulder with restorationism of near-anatomic alignment. 2. Inferior glenoid fracture with displaced bony fragments. Fractures were much better assessed on today's CT scan. CT SCAN OF THE RIGHT SHOULDER WITHOUT IV CONTRAST CLINICAL HISTORY: Postreduction examination. COMPARISON STUDY: Radiographs and CT of the right shoulder performed earlier the same day 09/26/2020. TECHNIQUE: CT scan of the right shoulder is performed from the lower neck to the humeral shaft. Images are reviewed in the axial, sagittal, and coronal planes. IV contrast was not administered for this examination. A dose lowering technique was utilized adhering to the principles of ALARA. CT DOSE: 836.60 mGy.cm FINDINGS: The skeletal structures are osteopenic. There has been successful reduction of the dislocated right shoulder with restorationism of near-anatomic alignment. There is a Hill-Sachs lesion in the right humeral head. Again seen is fracture along the inferior aspect of the glenoid. A large avulsed fragment from the anterior/inferior glenoid is within the posterior joint space. The fragment measures up to 1.5 cm as seen on image #77. Additional tiny osseous fragments are noted. There is associated hemarthrosis. Postoperative change is noted in the humeral head. Widening of the acromioclavicular joint is likely chronic. Hemorrhage is noted within the right axillary soft tissues, and blood products are also seen tracking along the posterior aspect of the deltoid muscle. No large/organized hematoma is identified. No lytic or blastic lesion is seen. There is no right axillary lymphadenopathy. The visualized right upper lung parenchyma appears clear. IMPRESSION: 1. There has been successful reduction of the dislocated right shoulder with restorationism of near-anatomic alignment. 2. There is a Hill-Sachs fracture, as well as a bony Bankart fracture of the glenoid as above. 3. There is a large displaced fragment of the anterior/inferior glenoid. 4. There is hemarthrosis, as well as hemorrhage within the overlying musculature and right axillary region. 5. No large/organized hematoma is identified. MRI ordered and pending. Code Status & VTE Plan VTE Prophylaxis Plan Reason for no VTE mechanical prophylaxis: Treatment not indicated (1) Bankart lesion of right shoulder Encounter type: initial encounter Qualified Code(s): S43.491A - Other sprain of right shoulder joint, initial encounter
--- NOTE | 2020-09-26 16:36 | Progress Notes ---
DATE OF SERVICE: 09/26/2020 The patient was seen in conjunction with Sugar Yates. For further details, refer her dictation. She and I saw and evaluated this patient together and I am in agreement with the plan. Armida is 65. Yesterday, she tripped and fell, dislocated her right shoulder. She was seen in the ER and had a difficult time getting the shoulder reduced. It is possible that the shoulder was reduced and then redislocated or may have never been completely reduced. At any length, she came into our o ffice today with the shoulder dislocated. I coordinated care with Dr. Flores and he attempted sev eral reductions. He could feel the arm reduced, but then it would pop back out. I came up and asses sed her. She could contract her deltoid, had normal arm sensation. There is pain and swelling of th e right shoulder. Radial pulses 1+. Median, radial and ulnar musculocutaneous motor and sensory fun ctions were intact, although her strength is limited because of pain. After adequate conscious sedat ion, I attempted gentle traction-countertraction maneuver. With distraction, the arm could be realig jeramie and then with release, the shoulder remained concentric. We were then able to get a Grashey AP a nd a transscapular lateral demonstrating a concentric reduction. I externally rotated the arm about 20 degrees and it stayed reduced. A CT scan was then done, which showed that there was a concentric reduction. There was an inferior bony Bankart. This was noted on previous x-rays and the prior CT s can done with the shoulder dislocated, which I also reviewed. Unfortunately, the bony Bankart lesion is incarcerated in the back of the shoulder, which likely means that the capsular tissue is incarcer ated within the joint as well. I discussed these findings with Armida. It is my recommendation that we not leave things as they are. I think that this would affect joint function and potentially contribute to recurrent instability. The plan at this time is to obtain an MRI as she has had prior rotator cuff surgery. This would be to evaluate the status of her rotator cuff. Additionally, to evaluate the bony Bankart lesion. Subs equently, I think that surgical intervention is necessary. She will be admitted to the hospital. Pa in control. The arm was stable in the sling and swathe. The surgical plan at this point could consi st of arthroscopic versus open excision of the fragment, reduction or even fixation depending on the circumstances. At this time, I am leaning towards arthroscopic reduction and possible arthroscopic b wesly Bankart fixation. Job ID: [id number]
--- NOTE | 2020-09-26 17:37 | Magnetic Resonance Report ---
MRI OF THE RIGHT SHOULDER WITHOUT CONTRAST CLINICAL HISTORY: Right shoulder dislocation. COMPARISON STUDY: MRI of the right shoulder March 03, 2020. Right shoulder and right shoulder radio graphs performed earlier today. TECHNIQUE: Utilizing a 1.5 Megan magnet and dedicated coil, multiplanar, multiecho imaging of the rig ht shoulder was performed without intravenous or intraarticular contrast. FINDINGS: This exam is significantly compromised by motion artifact. There are postoperative findings from previous rotator cuff repair. A full thickness tear of supraspinatus is noted with approximatel y 2.2 cm of tendon retraction. There is marked muscular atrophy of supraspinatus. There is also suspe cted full-thickness tear of infraspinatus with tendon retraction and muscular atrophy. There is at le ast partial thickness tear subscapularis tear with atrophy. Teres minor is intact. The cuff is subopt imally assessed on this exam. Note is made of marrow edema within the posterior lateral aspect of the right humeral head. This suggests a Hill-Sachs impaction fracture. There is also an acute fracture o f the anterior inferior glenoid with an associated 1.5 cm bone fragment within the posterior aspect o f the joint space as shown on CT. There is a moderate size joint effusion which appears complex. Ther e is significant edema within the adjacent soft tissues, including the deltoid. A complex labral tear is noted. Proximal long head of the biceps tendon is not well visualized. This suggests a tear. Ther e is moderate osteoarthritis of the glenohumeral joint. IMPRESSION: 1. Anatomic alignment of the right glenohumeral joint post reduction. Hill-Sachs impaction fracture a nd acute bony Bankart with an associated 1.5 cm bone fragment arising from the anterior inferior marie oid. Moderate size complex joint effusion. Adjacent soft tissue edema, as described above. 2. Exam significantly compromised by motion artifact. Previous rotator cuff repair. Full-thickness te ars of supraspinatus and infraspinatus with tendon retraction and muscular atrophy, as described abov e. 3. Diminutive irregular labrum suggestive of a complex labral tear. Suspected tear of the proximal lo ng head biceps tendon. 4. Moderate osteoarthritis of the right glenohumeral joint. ACT 112: Negative or not required by law. Electronically signed by: Huang Narayan M.D. 09/26/2020 5:35 PM
[2020-09-26] MEDS ORDERED: MAGNESIUM HYDROXIDE SUSP 30 ML UDC PO PRN (20:18)
[2020-09-26] MEDS ORDERED: oxyCODONE HCL IR 5 MG TAB (IMMEDIATE RELEASE) PO PRN (20:18)
[2020-09-26] MEDS ORDERED: ALBUTEROL HFA 8 GM INHALER INH PRN (20:18)
[2020-09-26] MEDS ORDERED: HYDROmorphone INJ 0.5 MG/0.5 ML SYR IV PRN (20:18)
[2020-09-26] MEDS ORDERED: POLYETHYLENE (MIRALAX) 17 GM PACK PO PRN (20:18)
[2020-09-26] MEDS ORDERED: ONDANSETRON INJ 2 MG/ML 2 ML VIAL IV PRN (20:18)
[2020-09-26 21:25] LABS: Basophils # (auto) 0.01 K/uL (0-0.2); Basophils % (auto) 0.1 %; Eosinophils # (auto) 0.08 K/uL (0-0.5); Eosinophils % (auto) 1.2 %; Hematocrit (blood only) 41.2 % (37-47); Immature Granulocytes # (auto) 0.01 K/uL (0.00-0.02); Immature Granulocytes % (auto) 0.1 %; Lymphocytes # (auto) 1.69 K/uL (1.2-3.4); Lymphocytes % (auto) 24.7 %; Mean Corpuscular Hemoglobin 29.7 pg (25-34); Mean Corpuscular Volume 87.5 fL (80-100); Mean Platelet Volume 10.1 fL (7.4-10.4); Monocytes # (auto) 0.65 K/uL (0.11-0.59); Monocytes % (auto) 9.5 %; Neutrophils # (auto) 4.39 K/uL (1.4-6.5); Neutrophils % (auto) 64.4 %; Platelet Count 170 K/uL (130-400); RDW Standard Deviation 41.6 fL (36.4-46.3); Red Blood Count 4.71 M/uL (4.2-5.4); White Blood Count 6.83 K/uL (4.8-10.8)
[2020-09-26 21:39] LABS: Partial Thromboplastin Time 25.3 Seconds (21.0-31.0); Prothrombin Time 10.4 Seconds (9.0-12.0)
[2020-09-26 21:44] LABS: BUN Creatinine Ratio 14.3 (10-20); Calcium 8.8 mg/dl (8.5-10.1); Creatinine Clr Calc Pharmacy 94.8 ml/min; Est GFR (African American) 105.4 ml/min; Est GFR (Non-African American) 90.9 ml/min
[2020-09-26] MEDS: SODIUM CHLORIDE 0.9% 1000ML 1,000 ML IV SCH (23:45)
[2020-09-26] MEDS: SIMVASTATIN 40 MG TAB PO SCH (23:45)
[2020-09-26] MEDS: levETIRAcetam 250 MG TAB PO SCH (23:45)
[2020-09-26] MEDS: ACETAMINOPHEN 500 MG TAB PO SCH (23:46)
[2020-09-26] MEDS: FLUTICASONE PROPIONATE NA SPR 16 GM BTL NAE SCH (23:47)
[2020-09-26] MEDS: DOCUSATE SODIUM 100 MG CAP PO SCH (23:47)
[2020-09-27] MEDS ORDERED: BUPIVACAINE 0.5 % 5 MG/1 ML PF 10ML VIAL ONE (06:44)
--- NOTE | 2020-09-27 07:01 | Anesthesiology Consultation ---
Date of Service September 27, 2020 Assessment & Plan (1) Encounter for pre-operative examination: Chart Review Chart Review: direct entry midwife initiated History Surgery Operation Date: 09/27/20 11:50 Proposed Procedures p Right Arthroscopic Bankart Repair, Possible Open Reduction Internal Fixation - Johnathan Cardozo MD Height/Weight Height: 5 ft 2 in Weight: 109.6 kg Allergies Allergy/AdvReac Type Severity Reaction Status Date / Time amoxicillin Allergy Unknown Rash Verified 09/26/20 10:57 bee venom protein (honey bee) Allergy Unknown Anaphylaxis Verified 09/26/20 10:57 carbamazepine Allergy Unknown Hives Verified 09/26/20 10:57 lamotrigine Allergy Unknown Hives Verified 09/26/20 10:57 Penicillins Allergy Unknown Hives Verified 09/26/20 10:57 Sulfa (Sulfonamide Allergy Unknown Hives, Verified 09/26/20 10:57 Antibiotics) itching, N/V, diarrhea sulfamethoxazole Allergy Unknown Hives, Verified 09/26/20 10:57 itching, N/V, diarrhea trimethoprim Allergy Unknown Hives, Verified 09/26/20 10:57 itching, N/V, diarrhea Medications Home Medications Medication Instructions Recorded Confirmed Last Taken venlafaxine 150 mg 150 mg PO QAM #0 cap 02/10/13 09/26/20 09/25/20 capsule,extended release 24 hr hydrochlorothiazide 25 mg tablet 25 mg PO QAM #0 tab 04/08/13 09/26/20 09/26/20 polyethylene glycol 3350 17 gram 17 g PO DAILY PRN #0 01/09/15 09/26/20 08/04/19 oral powder packet (Miralax) valacyclovir 1 gram tablet 1,000 mg PO UD PRN #0 04/29/16 09/26/20 07/21/20 (Valtrex) cholecalciferol (vitamin D3) 50 2,000 unit PO QAM #0 09/02/17 09/26/20 09/26/20 mcg (2,000 unit) capsule omega 3,5,6,7,9 combination no.1 1 cap PO QAM #0 09/02/17 09/26/20 09/26/20 700 mg-salmon oil 1,500 mg capsule (Complete Matheson) psyllium husk (aspartame) 3.4 1 dose PO QAM #0 09/04/17 09/26/20 09/20/20 gram/5.8 gram oral powder (Metamucil [facility] Fiber) fluticasone propionate 50 2 sprays INTRANASAL BID #16 gm 11/17/18 09/26/20 09/26/20 mcg/actuation nasal spray,suspension omeprazole 20 mg capsule,delayed 20 mg PO QAM 08/02/19 09/26/20 09/25/20 release aspirin-caffeine 400 mg-32 mg 1 tab PO UD PRN 07/15/20 09/26/20 07/21/20 tablet (Anacin) naproxen sodium 220 mg tablet 220 mg PO Q12H PRN 07/15/20 09/26/20 07/23/20 (Aleve) albuterol sulfate 90 mcg/actuation 2 puff INHALATION UD PRN 07/25/20 09/26/20 Unknown aerosol inhaler (Ventolin HFA) methocarbamol 500 mg tablet 500 mg PO Q8H PRN 07/25/20 09/26/20 07/23/20 simvastatin 40 mg tablet 40 mg PO HS 07/25/20 09/26/20 09/25/20 turmeric 400 mg capsule 400 mg PO QAM 07/25/20 09/26/20 09/26/20 lisinopril 10 mg tablet 10 mg PO QAM #0 tab 09/04/20 09/26/20 09/26/20 levetiracetam 250 mg tablet 250 - 500 mg PO BID 09/15/20 09/26/20 09/26/20 meloxicam 15 mg tablet 15 mg PO DAILY PRN 09/15/20 09/26/20 Unknown diclofenac sodium 1 % topical gel 2 g TOPICAL QID PRN 09/25/20 09/26/20 Unknown magnesium oxide 500 mg tablet 500 mg PO DAILY 09/25/20 09/26/20 09/26/20 baclofen 20 mg tablet 20 mg PO TID PRN 09/26/20 09/26/20 Unknown lisinopril 20 mg tablet 20 mg PO QAM 09/26/20 09/26/20 09/26/20 Active Medications Generic Name Dose Route Start Last Admin Trade Name Freq PRN Reason Stop Dose Admin Acetaminophen 1,000 mg 09/26/20 20:18 09/26/20 23:46 Acetaminophen 500 Mg Tab PO 10/26/20 20:17 1,000 mg Q8H ALYSSA Administration Docusate Sodium 100 mg 09/26/20 21:00 09/26/20 23:47 Docusate Sodium 100 Mg Cap PO 10/26/20 20:59 100 mg BID ALYSSA Administration Fluticasone Propionate 2 sprays 09/26/20 21:00 09/26/20 23:47 Fluticasone Propionate Na Spr 16 Gm Btl CARMEN 10/26/20 20:59 Not Given BID ALYSSA Sodium Chloride 1,000 mls @ 75 mls/hr 09/26/20 20:18 09/26/20 23:45 Nss 1000ml IV 10/26/20 20:17 75 mls/hr .[id number] ALYSSA Administration Levetiracetam 500 mg 09/26/20 21:00 09/26/20 23:45 Levetiracetam 250 Mg Tab PO 10/26/20 20:59 500 mg HS ALYSSA Administration Simvastatin 40 mg 09/26/20 21:00 09/26/20 23:45 Simvastatin 40 Mg Tab PO 10/26/20 20:59 40 mg HS ALYSSA Administration Past Medical History Medical History Anxiety and depression Cavernous hemangioma of brain Remote hx, ? details per pt Chronic back pain Deep vein thrombosis Age 18 (post-op/fatty tumor excision) Fall Mechanical fall (09/14/20) "missed a step" >no LOC, head injury, dizziness, N/V, headaches GERD (gastroesophageal reflux disease) High cholesterol History of diverticulitis Hx of endometriosis Hx of gout Hypertension Morbid obesity Osteoarthritis Peptic ulcer disease Spinal stenosis Trigeminal neuralgia Past Family History Family History Brother Cancer Hypertension Mother Patient's mother is Cancer Sister Hypertension Father No problems noted. Unknown FH: kidney cancer Other Family history non-contributory No family history of adverse response to anesthesia Patient's father is Past Surgical History Surgical History H/O brain surgery Left side d/t "TMJ nerve" H/O left inguinal hernia repair x3 H/O toe surgery Right toe x6, Left toe x1 (r/t gout) H/O vascular surgery R/L varicose vein ablation History of appendectomy History of carpal tunnel release R/L History of cholecystectomy History of colonoscopy Colonoscopy (07/28/20): MAC at [facility] History of dilatation and curettage History of esophagogastroduodenoscopy (EGD) History of hernia repair Laparoscopic repair left Spigelian hernia with mesh (05/07/18): Grade 2 view, MAC#3, ETT 7.5 at [facility] History of knee replacement procedure of right knee History of repair of hiatal hernia History of tooth extraction History of total abdominal hysterectomy and bilateral salpingo-oophorectomy Rotator cuff arthropathy of left shoulder S/P excision of lipoma Removed from left leg (age 18) Status post wrist surgery Right wrist brian (r/t fracture) Social History Smoking Status: Never smoker Hx Alcohol Use: Yes Alcohol type: hard liquor alcohol intake frequency: holidays/special occasions only Hx Substance Use: No substance use type: prescription drug Physical Exam Vital Signs Last Vital Signs Temp 97.7 F 09/26/20 23:23 Pulse 75 09/26/20 23:23 Resp 16 09/26/20 23:23 BP 117/75 09/26/20 23:23 Pulse Ox 92 09/26/20 23:23 Testing Laboratory Results 09/26/20 20:48 09/26/20 20:48 PT 10.4 Seconds (9.0-12.0) 09/26/20 20:48 INR 1.0 (0.9-1.1) 09/26/20 20:48 APTT 25.3 Seconds (21.0-31.0) 09/26/20 20:48 Blood Type B Positive 09/26/20 20:48 Antibody Screen NEGATIVE 09/26/20 20:48 Electrocardiogram Date: 07/15/20 Normal sinus rhythm, rate 75 bpm Normal ECG When compared with ECG of 04-JAN-2020 18:09, Premature ventricular complexes are no longer Present Confirmed by Sylvain Simmons ([id number]) on 07/16/2020 6:28:16 AM Cervical Spine Date: 04/28/20 IMPRESSION: 1. No acute fracture or subluxation. 2. Degenerative changes of the cervical spine as above, progressively worsened from the 2013 comparison.
[2020-09-27] MEDS: ACETAMINOPHEN 500 MG TAB PO SCH ×3 (07:22→23:06)
[2020-09-27] MEDS ORDERED: ATROPINE SULFATE 0.1 MG/ML 10ML SYR IV PRN (08:48)
[2020-09-27] MEDS ORDERED: ONDANSETRON INJ 2 MG/ML 2 ML VIAL IV PRN (08:48)
[2020-09-27] MEDS ORDERED: fentaNYL citrate 100 MCG/2 ML VIAL IV PRN (08:48)
[2020-09-27] MEDS ORDERED: ePHEDrine sulfate 50 MG/ML AMP IV PRN (08:48)
[2020-09-27] MEDS ORDERED: lisinopril 10 MG TAB PO SCH (09:00)
[2020-09-27] MEDS ORDERED: KETAMINE 50 MG/5 ML SYRINGE ONE (09:09)
[2020-09-27] MEDS ORDERED: MIDAZOLAM HCL 1 MG/ML 2ML VIAL ONE (09:09)
[2020-09-27] MEDS ORDERED: fentaNYL citrate 100 MCG/2 ML VIAL ONE (09:09)
[2020-09-27 09:24] LABS: BUN Creatinine Ratio 17.7 (10-20); Calcium 8.3 mg/dl (8.5-10.1); Creatinine Clr Calc Pharmacy 109.1 ml/min; Est GFR (African American) 110.9 ml/min; Est GFR (Non-African American) 95.7 ml/min; Potassium 3.2 mmol/L (3.5-5.1)
--- NOTE | 2020-09-27 09:24 | Progress Notes ---
DATE OF SERVICE: 09/27/2020 Resting comfortably in bed. The shoulder is sore. No tingling or numbness. She appears to be able to contract her deltoid and has normal sensation throughout the arm with a 1+ radial pulse. Musculoc utaneous median, radial, and ulnar motor and sensory functions are intact with normal or nearly faheem l strength. MRI is reviewed. She does have a chronic small rotator cuff tear. She is status post p rior rotator cuff repair. Her subscapularis looks okay and posteriorly looks okay. She does have a Hill-Sachs and the bony Bankart lesion, which is displaced. CT scan results are reviewed demonstrati ng an incarcerated fragment. I discussed with Kelsey that I would recommend not leaving the bony fragment in place. We should try to get this out of the joint area. I think it would be helpful to try to repair this as well. We will attempt to do this arthroscopically and either repair the bony Bankart or simply do a soft tissue Ba nkart repair. It is possible that we might consider internal fixation with screws either percutaneou sly or through an open procedure. It is also conceivable that a coracoid transfer may be necessary t o provide stability to the shoulder. That would be an open surgical procedure. We talked about the risks, benefits, rehab and recovery and she agrees to proceed and an informed consent was obtained. She has no issues with metal allergies. She has had a blood clot in the past and will require mechan ical DVT prophylaxis. She has had a remote history of MRSA. She will get clindamycin and nasal swab s done preoperatively. She reports being tested for that subsequently and was not a carrier. Inform ed consent was obtained. Plan for the OR today. Job ID: [id number]
[2020-09-27] MEDS ORDERED: EPINEPHrine INJ 1 MG/ML AMP ONE (09:33)
[2020-09-27] MEDS ORDERED: LIDOCAINE/EPINEPHRINE 1% 20 ML VIAL ONE (09:33)
[2020-09-27] MEDS: CLINDAMYCIN 900 MG in DEXTROSE 5% 50 ML IV ONE ×2 (09:41→19:13)
[2020-09-27] MEDS ORDERED: ROPIVACAINE 0.5% 5 MG/ML 30 ML VIAL ONE (09:58)
[2020-09-27] MEDS: FLUTICASONE PROPIONATE NA SPR 16 GM BTL NAE SCH ×2 (10:06→20:10)
[2020-09-27] MEDS: DOCUSATE SODIUM 100 MG CAP PO SCH ×2 (10:06→20:14)
[2020-09-27] MEDS: hydroCHLOROthiazide 25 MG TAB PO SCH (10:06)
[2020-09-27] MEDS: CHOLECALCIFEROL 1,000 UNITS 25 MCG TAB PO SCH (10:06)
[2020-09-27] MEDS: PANTOprazole 40 MG TAB PO SCH (10:07)
[2020-09-27] MEDS: MAGNESIUM OXIDE 400 MG TAB PO SCH (10:07)
[2020-09-27] MEDS: levETIRAcetam 250 MG TAB PO SCH ×2 (10:07→20:11)
[2020-09-27] MEDS: lisinopril 20 MG TAB PO SCH (10:07)
[2020-09-27] MEDS: VENLAFAXINE HCL XR 150 MG CAPXR PO SCH (10:07)
[2020-09-27] MEDS: PSYLLIUM 58.6% POWDER PACKET PO SCH (10:07)
[2020-09-27] MEDS ORDERED: LIDOCAINE 2% 2 ML VIAL/AMP(20MG/ML) INFIL ONE (10:09)
[2020-09-27] MEDS ORDERED: ROCURONIUM BROMIDE 10 MG/ML 5 ML VIAL IV ONE (10:09)
[2020-09-27] MEDS ORDERED: DEXAMETHASONE SOD INJ 4 MG/ML VIAL ONE (10:09)
[2020-09-27] MEDS ORDERED: ONDANSETRON INJ 2 MG/ML 2 ML VIAL ONE (10:09)
[2020-09-27] MEDS ORDERED: PROPOFOL IV EMULSION 10 MG/ML 20 ML VIAL IV ONE (10:09)
[2020-09-27] MEDS ORDERED: KETOROLAC 30 MG/ML VIAL ONE (12:32)
--- NOTE | 2020-09-27 12:54 | Operative Report ---
Post Operative Report Pre & Post Diagnosis Operation Date: 09/27/20 11:50 Pre-Op Diagnosis: Right Shoulder: Bankart Lesion, Glenoid Fracture, recurrent shoulder instability incarcerated bony Bankart fragment. Post-Op Diagnosis: Same I identified the patient and participated in the time-out.: Yes Procedure Operation Date: 09/27/20 11:50 Actual Procedures p Right Arthroscopic bony Bankart Repair(Right) - Johnathan Cardozo MD Surgeon Johnathan Cardozo MD City Clerk Sugar Yates no resident or fellow available Estimated Blood Loss 10 Findings Consistent with Post-Op Diagnosis Specimens None Anesthesia Type General Regional Complications none Disposition Accompanied Patient To Recovery: No Disposition: Recovery Room Indications To be 65. She dislocated her shoulder approximately 2 days ago. The shoulder has either been difficult to reduce concentrically or unstable enough that it does not stay reduced. She presented to my office with her shoulder dislocated after a visit to the ER the prior day. Yesterday she had a rereduction done which again was difficult. I was eventually able to get the shoulder reduced. CT scan showed bony Bankart lesion. The lesion was incarcerated or displaced into the back of the shoulder joint. I do think it could be left like this. Given her recurrent instability and the displaced fragment arthroscopic evaluation and repair was recommended. We are prepared to do internal fixation as well as open of the shoulder and also to do a lateral J. Description of Procedure Informed consent obtained. Patient identified. She identified the operative site as the right shoulder. I marked with my initials. A preoperative surgical timeout performed. DVT prophylaxis with foot pumps. Betadine nasal swab done. She was positioned supine and the anesthetic was given. She was then positioned decubitus with the right side up. Bony prominences of the lower extremity were inspected and padded including the peroneal nerve at the fibular neck. Axillary roll inserted. Torso secured to the table using tape and strap. Neck held in neutral alignment. At no time during our manipulation of the shoulder dislocate. Given the recent trauma I elected to forego a detailed examination under anesthesia. The arm was prescrubbed prepped and draped in usual sterile fashion. Posterior soft spot viewing portal followed by a low anterior mid glenoid working portal was established. The preop MRI had suggested injury to the subscapularis and supraspinatus. It was difficult to see the supraspinatus and infraspinatus insertions. I think I saw a small perforation in the supraspinatus. The biceps had previously been tenodesed. There was a Hill- Sachs lesion present. The axillary pouch showed disruption anteriorly but was okay posteriorly. The labrum was intact inferior posterior and superior. There was partial thickness tearing at the upper border of the subscapularis but the lower two thirds appeared to be intact. A anterosuperior portal was inserted using the outside in technique. An additional cannula was inserted posteriorly. The fragment was identified in the axillary pouch. At the time of the surgery it was not located posteriorly anymore and was in the anteroinferior joint space. The superior attachment to the labrum had been disrupted resulting in a hinged fragment hinged inferiorly. I went ahead and debrided the bony bed and debrided the lesion. I could essentially anatomically reduce it. The first thing I did was applied a traction stitch superiorly to gain better co ntrol. The second thing was to insert a 4.5 mm corkscrew anchor medially on the glenoid just at the margin of the fracture. This was double loaded. I then passed each of these around the bony fragment once inferior and 1 superior. Suture management was paid particular attention to. In order to reapproximate the fragment and recreate the anterior superior bony hands I took my traction stitch which had been applied through some medial to inferior glenohumeral ligament and inserted into a push lock superiorly at the articular cartilage margin of the fracture. This provided some stability and that this was not over tightened. After that I inserted 2 more push lock so one inferior and one in the middle both had good purchase. The unfortunate thing was that the bone lesion rotated somewhat upon insertion. I attempted to correct this by lifting up with the probe but the forces were socks that this appeared unavoidable. I elected to proceed as is given I had excellent fixation and was causing a capsular shifting. Stability was good. Sutures were cut after impacting in an tensioning the push locks. The corkscrew was double loaded with #2 FiberWire. I then debrided the upper border the subscapularis. The cannulas were removed and the portals were closed with 4-0 nylon. ABD in the armpit bulky soft sterile dressing Xeroform 4 x 4's ABDs sling and swath. She was awakened from anesthesia on the difficulty taken to recovery in stable condition. There were no specimens or complications counts were correct and blood loss was estimated to be 10 cc. There was no one available to speak to at the conclusion of the operation. I believe the plan is going to be to leave her in the sling for now and do some careful hand wrist and elbow movement and perhaps some pendulums. Recurrent instability is certainly a factor. I think that her rotator cuff pathology mostly is chronic there may be a acute element to it as well but she did not appear to have a massive rotator cuff tear. Our primary goal here was to achieve stability. I attest to the content of the Intraoperative Record and any orders documented therein. Any exceptions are noted below.
--- NOTE | 2020-09-27 13:11 | Operative Report ---
Post Operative Report Pre & Post Diagnosis Operation Date: 09/27/20 11:50 Pre-Op Diagnosis: Right Shoulder: Bankart Lesion, Glenoid Fracture Post-Op Diagnosis: Right Shoulder: Bankart Lesion, Glenoid Fracture I identified the patient and participated in the time-out.: Yes Procedure Operation Date: 09/27/20 11:50 Actual Procedures p Right Arthroscopic Bankart Repair(Right) - Johnathan Cardozo MD Surgeon Johnathan Cardozo M.D. Supervisor [employer] Sugar Yates PA-C, no resident or fellow available Estimated Blood Loss 10 Findings Consistent with Post-Op Diagnosis glenoid fracture Specimens None Anesthesia Type General Regional Description of Procedure Patient was taken to the operating room, placed under general anesthesia. Time out was performed, prepped and draped in routine sterile fashion. I was present during the entire case, please see Dr. Cardozo's operative report for further detail. Patient was awakened and taken to the recovery room in stable condition. I attest to the content of the Intraoperative Record and any orders documented therein. Any exceptions are noted below.
[2020-09-27] MEDS ORDERED: LABETALOL HCL IV 5 MG/ML 20ML IV STA (13:54)
[2020-09-27] MEDS ORDERED: LABETALOL HCL IV 5 MG/ML 20ML IV ONE (13:54)
[2020-09-27] MEDS ORDERED: NALOXONE HCL 0.4 MG/1 ML VIAL/CARP IV PRN (14:57)
[2020-09-27] MEDS ORDERED: bisacodyL 10 MG SUPP PR PRN (14:57)
--- NOTE | 2020-09-27 14:59 | Anesthesiology Progress Note ---
Date of Service September 27, 2020 Anesthesia Post Procedure Vital Signs Vital Signs: Temp Pulse Pulse Pulse Resp BP Pulse Ox 09/27/20 14:45 36.8 C 70 16 164/96 H 98 09/27/20 14:35 67 18 157/93 H 98 09/27/20 14:25 65 18 166/92 H 100 09/27/20 14:15 63 16 164/99 H 97 09/27/20 14:05 65 16 155/96 H 96 09/27/20 13:55 65 16 141/91 H 99 09/27/20 13:45 73 18 181/113 H 99 09/27/20 13:35 73 18 180/98 H 99 09/27/20 13:25 75 20 183/104 H 96 09/27/20 13:15 79 20 177/108 H 93 09/27/20 13:09 36.3 C L 78 18 170/101 H 93 09/27/20 09:13 36.9 C 74 18 146/87 H 97 09/27/20 08:00 09/27/20 07:25 36.8 C 77 17 140/85 90 09/26/20 23:23 36.5 C 75 16 117/75 92 09/26/20 20:18 36.6 C 72 17 138/93 96 09/26/20 19:40 73 20 99 09/26/20 19:30 66 15 98 09/26/20 19:20 70 18 97 09/26/20 19:10 66 15 97 09/26/20 19:00 67 21 98 09/26/20 18:50 67 20 97 09/26/20 18:40 67 20 96 09/26/20 18:30 69 23 96 09/26/20 18:20 69 17 96 09/26/20 18:10 69 18 96 09/26/20 18:02 69 20 96 09/26/20 17:36 69 16 142/87 H 98 09/26/20 16:16 72 16 118/64 91 09/26/20 16:01 75 20 130/96 93 09/26/20 15:56 77 16 146/105 H 94 09/26/20 15:52 78 12 139/77 93 09/26/20 15:41 78 19 138/86 94 09/26/20 15:35 94 09/26/20 15:31 77 16 141/93 H 96 09/26/20 15:25 75 19 155/95 H 98 09/26/20 15:21 75 20 142/99 H 98 09/26/20 15:16 75 19 157/91 H 98 09/26/20 15:10 74 17 139/107 H 96 Pulse Ox 09/27/20 14:45 09/27/20 14:35 09/27/20 14:25 09/27/20 14:15 09/27/20 14:05 09/27/20 13:55 09/27/20 13:45 09/27/20 13:35 09/27/20 13:25 09/27/20 13:15 09/27/20 13:09 09/27/20 09:13 09/27/20 08:00 97 09/27/20 07:25 09/26/20 23:23 09/26/20 20:18 09/26/20 19:40 09/26/20 19:30 09/26/20 19:20 09/26/20 19:10 09/26/20 19:00 09/26/20 18:50 09/26/20 18:40 09/26/20 18:30 09/26/20 18:20 09/26/20 18:10 09/26/20 18:02 09/26/20 17:36 09/26/20 16:16 09/26/20 16:01 09/26/20 15:56 09/26/20 15:52 09/26/20 15:41 09/26/20 15:35 09/26/20 15:31 09/26/20 15:25 09/26/20 15:21 09/26/20 15:16 09/26/20 15:10 Pain Intensity Right Upper Shoulder: Pain Intensity: 5 Transfer of Care Handoff Completed per policy Notes Mental Status: alert / awake / arousable and participated in evaluation Patient Amnestic to Procedure: Yes Nausea / Vomiting: adequately controlled Pain: adequately controlled Airway Patency, RR, SpO2: see Notes below BP & HR: stable & adequate Hydration State: stable & adequate Anesthetic Complications: no major complications apparent and Pt Satisfied with anesthetic care Notes: Patient postoperatively awoke and stated she felt mild SOB. Patient had received interscalene nerve block in preop by another anesthesia provider. I spoke with patient in PACU and reassured her this was likely 2/2 phrenic nerve block from the block. Her SOB improved during her PACU stay and she was weaned to minimal oxygen. She had a weak cough and felt like she couldn't clear her throat, again likely 2/2 nerve block. Instructed PACU nurse to ensure accepting floor puts her on continuous pulse oximetry and maintained on NC overnight. Instructed patient to introduce liquids carefully to ensure she is easily able to swallow so as to prevent aspiration. All questions answered.
[2020-09-27] MEDS: SODIUM CHLORIDE 0.9% 1000ML 1,000 ML IV SCH ×2 (15:20→15:44)
[2020-09-27] MEDS: KETOROLAC TROMETHAMINE 15 MG/ML VIAL IV SCH ×2 (15:43→20:16)
[2020-09-27] MEDS ORDERED: hydrALAZINE HCL 20 MG/ML VIAL IV STA (17:11)
[2020-09-27] MEDS ORDERED: hydrALAZINE HCL 20 MG/ML VIAL ONE (17:16)
[2020-09-27] MEDS: CLINDAMYCIN 600 MG in DEXTROSE 5% 50 ML IV SCH (18:28)
[2020-09-27] MEDS: SIMVASTATIN 40 MG TAB PO SCH (20:10)
[2020-09-27] MEDS: ASPIRIN 325 MG ECTAB PO SCH (20:15)
[2020-09-27] MEDS ORDERED: SENNA 8.6 MG TAB PO SCH (21:00)
[2020-09-28] MEDS: SODIUM CHLORIDE 0.9% 1000ML 1,000 ML IV SCH ×3 (01:10→04:38)
[2020-09-28] MEDS: CLINDAMYCIN 600 MG in DEXTROSE 5% 50 ML IV SCH (03:25)
[2020-09-28] MEDS: KETOROLAC TROMETHAMINE 15 MG/ML VIAL IV SCH ×2 (03:34→08:26)
[2020-09-28 07:05] LABS: Hematocrit (blood only) 33.7 % (37-47); Hemoglobin 11.2 g/dL (12.0-16.0); Mean Corpuscular Hgb Conc 33.2 g/dL (32-36); Mean Corpuscular Volume 87.3 fL (80-100); Mean Platelet Volume 9.7 fL (7.4-10.4); Platelet Count 149 K/uL (130-400); RDW Coefficient of Variation 13.1 % (11.5-14.5); Red Blood Count 3.86 M/uL (4.2-5.4); White Blood Count 6.69 K/uL (4.8-10.8)
[2020-09-28 07:44] LABS: BUN Creatinine Ratio 18.7 (10-20); Calcium 7.4 mg/dl (8.5-10.1); Creatinine Clr Calc Pharmacy 123.5 ml/min; Est GFR (African American) 115.5 ml/min; Est GFR (Non-African American) 99.6 ml/min; Potassium 3.2 mmol/L (3.5-5.1)
[2020-09-28] MEDS: MAGNESIUM OXIDE 400 MG TAB PO SCH (08:21)
[2020-09-28] MEDS: FLUTICASONE PROPIONATE NA SPR 16 GM BTL NAE SCH ×2 (08:21→21:09)
[2020-09-28] MEDS: hydroCHLOROthiazide 25 MG TAB PO SCH (08:21)
[2020-09-28] MEDS: PANTOprazole 40 MG TAB PO SCH (08:21)
[2020-09-28] MEDS: VENLAFAXINE HCL XR 150 MG CAPXR PO SCH (08:21)
[2020-09-28] MEDS: PSYLLIUM 58.6% POWDER PACKET PO SCH (08:21)
[2020-09-28] MEDS: MULTIVITAMIN TAB PO SCH (08:21)
[2020-09-28] MEDS: lisinopril 20 MG TAB PO SCH (08:21)
[2020-09-28] MEDS: ASPIRIN 325 MG ECTAB PO SCH ×2 (08:22→21:10)
[2020-09-28] MEDS: levETIRAcetam 250 MG TAB PO SCH ×2 (08:22→21:11)
[2020-09-28] MEDS: CHOLECALCIFEROL 1,000 UNITS 25 MCG TAB PO SCH (08:22)
[2020-09-28] MEDS: ACETAMINOPHEN 500 MG TAB PO SCH ×3 (08:26→23:07)
[2020-09-28] MEDS: DOCUSATE SODIUM 100 MG CAP PO SCH (08:27)
--- NOTE | 2020-09-28 10:04 | Hospitalist Consultation ---
Date of Consultation September 28, 2020 Assessment & Plan (1) Dislocated shoulder: -S/p reduction (2) Glenoid fracture of shoulder: -S/p arthroscopic repair POD #1 -recommend adequate postoperative pain management, PT/OT, incentive spirometry, and DVT prophylaxis X 14 days (drug, dose, duration are at the discretion of primary team) (3) Bankart lesion of right shoulder: - s/p repair-- see above (4) HTN (hypertension): -Agree with resumption of HCTZ and lisinopril as prior to hospitalization. Blood pressure controlled at present (5) Mood disorder: -Continue Effexor (6) IBS (irritable bowel syndrome): -Patient has a history of IBS with diarrhea. Having frequent/loose BMs. On a bowel regimen due to likelihood of constipation from opioid medication. We will hold bowel regimen for now and use MiraLAX as needed. (7) Hypokalemia: -Replace with follow-up lab data in the a.m. to trend -Patient noted to be on Keppra. Uncertain as to why. Reports no history of seizure. Was able to review records and patient follows neurology for headaches/cervico-occipital neuralgia and cerebral cavernoma. She is on Keppra for her neuralgia. Continue this -will follow along with this patient. Thank you for allowing me to participate in her care. Supervising Physician Co-Signing Physician Notes Patient seen and examined with Lexi Gallagher PA-C. I agree with her exam findings, review of systems, assessment and plan. I personally reviewed the lab work and imaging as well. patient doing well, BP is stable - HTN: continue home regimen, check BMP in the morning will continue to follow along History of Present Illness Reason for Consultation: Medical management Requesting Physician: Dr. Cardozo Attending Physician: Johnathan Cardozo MD History of Present Illness Mrs. Pleitez is a 65-year-old white female with a past medical history of HTN, IBS, and mood disorde, and h/o cerebral cavernoma with neuralgia and QUEZADA. She was hospitalized on 09/26 under the service of Dr. Cardozo for right arthroscopic repair of Bankart lesion following dislocation of right shoulder post reduction. Patient sustained a ground-level fall on 09/25 landing on her right shoulderstriking the curb. Did not lose consciousness. Seen by established orthopod in the office where her x-ray revealed an anteriorly dislocated right shoulder. Multiple attempts at reduction were unsuccessful leading patient to come to the ED for conscious sedation. Shoulder was successfully reduced. Post reduction films showed Bankart lesion and glenoid fracture requiring surgical intervention. Patient had general anesthesia. Today bryant POD #1. She is having pain in the right shoulder that is controlled with her pain medication. No ill effects. EBL 10 cc. Patient is right-hand dominant. Unfortunately, healing from a recent trigger finger release on her left hand (done by Dr. Cardozo). This has limited her ability to independently perform ADLs. PT/OT assessment pending. Patient does live alone. Patient's complaint today is frequent loose stools. She does have IBS with diarrhea. Currently on colace/Senokot and Dulcolax prophylactically due to opioid pain medication and risk for constipation. Otherwise, patient denies fevers, chills, chest pain, shortness of breath, abdominal pain, nausea or vomiting. Allergies Allergy/AdvReac Type Severity Reaction Status Date / Time amoxicillin Allergy Unknown Rash Verified 09/26/20 10:57 bee venom protein (honey bee) Allergy Unknown Anaphylaxis Verified 09/26/20 10:57 carbamazepine Allergy Unknown Hives Verified 09/26/20 10:57 lamotrigine Allergy Unknown Hives Verified 09/26/20 10:57 Penicillins Allergy Unknown Hives Verified 09/26/20 10:57 Sulfa (Sulfonamide Allergy Unknown Hives, Verified 09/26/20 10:57 Antibiotics) itching, N/V, diarrhea sulfamethoxazole Allergy Unknown Hives, Verified 09/26/20 10:57 itching, N/V, diarrhea trimethoprim Allergy Unknown Hives, Verified 09/26/20 10:57 itching, N/V, diarrhea Home Medications Medication Instructions Recorded Confirmed Type venlafaxine 150 mg 150 mg PO QAM #0 cap 02/10/13 09/26/20 History capsule,extended release 24 hr hydrochlorothiazide 25 mg tablet 25 mg PO QAM #0 tab 04/08/13 09/26/20 History polyethylene glycol 3350 17 gram 17 g PO DAILY PRN #0 01/09/15 09/26/20 History oral powder packet (Miralax) valacyclovir 1 gram tablet 1,000 mg PO UD PRN #0 04/29/16 09/26/20 History (Valtrex) cholecalciferol (vitamin D3) 50 2,000 unit PO QAM #0 09/02/17 09/26/20 History mcg (2,000 unit) capsule omega 3,5,6,7,9 combination no.1 1 cap PO QAM #0 09/02/17 09/26/20 History 700 mg-salmon oil 1,500 mg capsule (Complete [place]) psyllium husk (aspartame) 3.4 1 dose PO QAM #0 09/04/17 09/26/20 History gram/5.8 gram oral powder (Metamucil [facility]) fluticasone propionate 50 2 sprays INTRANASAL BID #16 gm 11/17/18 09/26/20 History mcg/actuation nasal spray,suspension omeprazole 20 mg capsule,delayed 20 mg PO QAM 08/02/19 09/26/20 History release aspirin-caffeine 400 mg-32 mg 1 tab PO UD PRN 07/15/20 09/26/20 History tablet (Anacin) naproxen sodium 220 mg tablet 220 mg PO Q12H PRN 07/15/20 09/26/20 History (Aleve) albuterol sulfate 90 mcg/actuation 2 puff INHALATION UD PRN 07/25/20 09/26/20 History aerosol inhaler (Ventolin HFA) methocarbamol 500 mg tablet 500 mg PO Q8H PRN 07/25/20 09/26/20 History simvastatin 40 mg tablet 40 mg PO HS 07/25/20 09/26/20 History turmeric 400 mg capsule 400 mg PO QAM 07/25/20 09/26/20 History lisinopril 10 mg tablet 10 mg PO QAM #0 tab 09/04/20 09/26/20 History levetiracetam 250 mg tablet 250 - 500 mg PO BID 09/15/20 09/26/20 History meloxicam 15 mg tablet 15 mg PO DAILY PRN 09/15/20 09/26/20 History diclofenac sodium 1 % topical gel 2 g TOPICAL QID PRN 09/25/20 09/26/20 History magnesium oxide 500 mg tablet 500 mg PO DAILY 09/25/20 09/26/20 History baclofen 20 mg tablet 20 mg PO TID PRN 09/26/20 09/26/20 History lisinopril 20 mg tablet 20 mg PO QAM 09/26/20 09/26/20 History Patient History Medical History Anxiety and depression Cavernous hemangioma of brain Remote hx, ? 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" H/O left inguinal hernia repair x3 H/O toe surgery Right toe x6, Left toe x1 (r/t gout) H/O vascular surgery R/L varicose vein ablation History of appendectomy History of carpal tunnel release R/L History of cholecystectomy History of colonoscopy Colonoscopy (07/28/20): MAC at [facility] History of dilatation and curettage History of esophagogastroduodenoscopy (EGD) History of hernia repair Laparoscopic repair left Spigelian hernia with mesh (05/07/18): Grade 2 view, MAC#3, ETT 7.5 at [facility] History of knee replacement procedure of right knee History of repair of hiatal hernia History of tooth extraction History of total abdominal hysterectomy and bilateral salpingo-oophorectomy Rotator cuff arthropathy of left shoulder S/P excision of lipoma Removed from left leg (age 18) Status post wrist surgery Right wrist brian (r/t fracture) Family History Brother Cancer Hypertension Mother Patient's mother is Cancer Sister Hypertension Father No problems noted. 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 Physical Exam Physical Exam: General: Resting comfortably in her hospital bed. NAD. Neck: No JVD. Negative hepatojugular reflex Cardiac: Distant due to habitus but RRR without M/G/R Lungs: Diminished without W/R/R Abdomen: Normoactive X4. Soft and nontender in all quadrants. Extremities: Right upper extremity in postsurgical sling. Capillary refill +2. Radial pulse intact and symmetrical bilaterally. Fine motor/dexterity intact. Neurovascular intact Neuro: A&O X4 cranial nerves II through XII are grossly intact no focal neuro deficits Skin: No obvious skin lesions or rashes Results & Data Results & Data ([facility]) Vital Signs (Past 12 Hours) Vital Signs Temp Pulse Resp BP Pulse Ox 09/28/20 07:55 36.7 C 65 20 113/72 95 09/28/20 06:43 91 09/28/20 05:00 37.0 C 75 20 134/71 96 09/27/20 23:25 37.0 C 79 20 111/69 98 Laboratory Results 09/28/20 06:48 09/28/20 06:48 PG Care Time/CCT Total # of Minutes Spent Total Time Spent with Patient: Total time spent is greater than 50% in coordination of care (as documented) at patient's floor/unit and/or counseling patient: Coding [place] [address] Inpt Consult Level 4 Patient Type Established Medical Decision Making Moderate Complexity Diagnoses Dislocated shoulder S43.004A Encounter type: initial encounter Laterality: right Glenoid fracture of shoulder S42.141A; S42.151A Encounter type: initial encounter Fracture type: closed Laterality: right Bankart lesion of right shoulder S43.491A Encounter type: initial encounter HTN (hypertension) I10 Mood disorder F39 IBS (irritable bowel syndrome) K58.9 Hypokalemia E87.6 (1) Glenoid fracture of shoulder Encounter type: initial encounter Fracture type: closed Laterality: right Qualified Code(s): S42.141A - Displaced fracture of glenoid cavity of scapula, right shoulder, initial encounter for closed fracture; S42.151A - Displaced fracture of neck of scapula, right shoulder, initial encounter for closed fracture (2) Bankart lesion of right shoulder Encounter type: initial encounter Qualified Code(s): S43.491A - Other sprain of right shoulder joint, initial encounter (3) Dislocated shoulder Encounter type: initial encounter Laterality: right Qualified Code(s): S43.004A - Unspecified dislocation of right shoulder joint, initial encounter
[2020-09-28] MEDS ORDERED: POTASSIUM CHLORIDE CRTAB 20 MEQ TABCR PO STA (15:34)
--- NOTE | 2020-09-28 16:43 | Orthopedic Progress Note ---
Date of Service September 28, 2020 Assessment & Plan (1) Dislocated shoulder: Plan: Doing well. We will continue her admission at this point. Reassess tomorrow. Do active movement of hand and wrist. Discussed with her that the elbow cannot be behind the plane of her body and that the arm should be slightly forward flexed and internally rotated in the sling. She can be up and about as tolerated. She is not inability use that arm for anything significant for the time being. Probably are can do much in the way of aggressive therapy for the next couple weeks. Elevate ice. Her blood pressures are under better control. Appreciate medicine consult. She is not can be able to drive. (2) Glenoid fracture of shoulder: Admission and Anticipated Discharge Date Admission Date: September 26, 2020 Juli Denson is resting comfortably in bed. No problems reported. Her pain is well controlled. She is able to get up and ambulate. Physical Exam Physical Exam: Axillary musculocutaneous median radial and ulnar motor and sensory functions are intact with radial pulse 1+ and normal sensation. Dressing clean and dry. Sling readjusted. Results & Data ([facility]) Vital Signs (Past 12 Hours) Vital Signs Temp Pulse Resp BP Pulse Ox 09/28/20 16:01 36.6 C 73 18 133/79 95 09/28/20 07:55 36.7 C 65 20 113/72 95 09/28/20 06:43 91 09/28/20 05:00 37.0 C 75 20 134/71 96 (1) Dislocated shoulder Encounter type: initial encounter Laterality: right Qualified Code(s): S43.004A - Unspecified dislocation of right shoulder joint, initial encounter (2) Glenoid fracture of shoulder Encounter type: initial encounter Fracture type: closed Laterality: right Qualified Code(s): S42.141A - Displaced fracture of glenoid cavity of scapula, right shoulder, initial encounter for closed fracture; S42.151A - Displaced fracture of neck of scapula, right shoulder, initial encounter for closed fracture
[2020-09-28] MEDS: traMADol HCL 50 MG TABLET PO PRN (19:24)
[2020-09-28] MEDS: SIMVASTATIN 40 MG TAB PO SCH (21:10)
[2020-09-29] MEDS: traMADol HCL 50 MG TABLET PO PRN (06:43)
[2020-09-29 07:03] LABS: BUN Creatinine Ratio 19.1 (10-20); Calcium 8.2 mg/dl (8.5-10.1); Creatinine Clr Calc Pharmacy 100.7 ml/min; Est GFR (Non-African American) 93.2 ml/min; Potassium 3.7 mmol/L (3.5-5.1)
[2020-09-29] MEDS: ACETAMINOPHEN 500 MG TAB PO SCH (08:27)
[2020-09-29] MEDS: VENLAFAXINE HCL XR 150 MG CAPXR PO SCH (08:28)
[2020-09-29] MEDS: PSYLLIUM 58.6% POWDER PACKET PO SCH (08:28)
[2020-09-29] MEDS: MULTIVITAMIN TAB PO SCH (08:28)
[2020-09-29] MEDS: FLUTICASONE PROPIONATE NA SPR 16 GM BTL NAE SCH (08:28)
[2020-09-29] MEDS: PANTOprazole 40 MG TAB PO SCH (08:28)
[2020-09-29] MEDS: MAGNESIUM OXIDE 400 MG TAB PO SCH (08:29)
[2020-09-29] MEDS: lisinopril 20 MG TAB PO SCH (08:29)
[2020-09-29] MEDS: hydroCHLOROthiazide 25 MG TAB PO SCH (08:29)
[2020-09-29] MEDS: CHOLECALCIFEROL 1,000 UNITS 25 MCG TAB PO SCH (08:29)
[2020-09-29] MEDS: ASPIRIN 325 MG ECTAB PO SCH (08:29)
[2020-09-29] MEDS: levETIRAcetam 250 MG TAB PO SCH (08:29)
[2020-09-29] MEDS ORDERED: cloNIDine HCL 0.1 MG TAB PO PRN (10:14)
--- NOTE | 2020-09-29 10:16 | Orthopedic Progress Note ---
Date of Service September 29, 2020 Assessment & Plan (1) Dislocated shoulder: Plan: Discharge later today Planning on him home health services for the first 2 weeks postoperatively May come out of sling to work on range of motion of elbow wrist hand and fingers Ice with EZ wrap Pain control with p.o. medications. Patient states that she has some oxycodone left over from her emergency department visit will use this for breakthrough pain, otherwise she plans on alternating with her meloxicam and Tylenol for pain control. Follow-up with Dr. Cardozo as previously Scheduled next Friday at noon. With any questions contact our clinic at [phone]. (2) Glenoid fracture of shoulder: Admission and Anticipated Discharge Date Admission Date: September 26, 2020 Subjective This 65-year-old female is day 2 status post Right shoulder arthroscopic Bankart repair. Patient is resting comfortably in her bedside chair eating breakfast. No problems reported. Her pain is well controlled. She is able to get up and ambulate. Patient denies chest pain, shortness of breath, fever, chills, sweats, lethargy or numbness or tingling in her right upper extremity. She states she is planning on going home today with in-home health services. Patient seems a little anxious and keeps saying that she cannot leave she is not allowed to drive for about 4 months. Review of Systems Review of Systems: Unremarkable except for those things stated in the HPI and past medical history. Physical Exam Physical Exam: Right shoulder: Foam tape dressing was removed from the patient 's right shoulder. Portal sites are closed completely with sutures in place. Patient does have edema over the anterior shoulder as well as some ecchymosis in the axillary region. She is able to reach terminal flexion-extension her elbow. Has full range of motion of her wrist. 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 She is neurovascularly intact. Peripheral pulses are 2+. Capillary fill is less than 2 seconds. I did apply new dressing consisting of sterile 2 x 2's and Tegaderms. I did tell the patient I was planning on placing Band-Aids over the region but she states that she wants to be able to shower and is not sure if she can put a waterproof dressing over the shoulder by herself therefore that is why I chose to apply the Tegaderms. I also placed a sterile ABD pad in her axilla. Results & Data ([facility]) Vital Signs (Past 12 Hours) Vital Signs Temp Pulse Resp BP Pulse Ox 09/29/20 09:51 65 150/96 H 09/29/20 08:13 36.8 C 65 18 164/106 H 95 09/28/20 22:54 36.9 C 74 22 122/77 94 Laboratory Results 09/29/20 Range/Units 05:43 Sodium 143 (136-145) mmol/L Potassium 3.7 D (3.5-5.1) mmol/L Chloride 112 H (98-107) mmol/L Carbon Dioxide 28 (21-32) mmol/L Anion Gap 3.0 (3-11) BUN 12 (7-18) mg/dl Creatinine 0.65 (0.6-1.2) mg/dl Est Cr Clr Drug Dosing 100.7 ml/min Est GFR ( Amer) 108.0 ml/min Est GFR (Non-Af Amer) 93.2 ml/min BUN/Creatinine Ratio 19.1 (10-20) Glucose 92 (70-99) mg/dl Calcium 8.2 L (8.5-10.1) mg/dl (1) Dislocated shoulder Encounter type: initial encounter Laterality: right Qualified Code(s): S43.004A - Unspecified dislocation of right shoulder joint, initial encounter (2) Glenoid fracture of shoulder Encounter type: initial encounter Fracture type: closed Laterality: right Qualified Code(s): S42.141A - Displaced fracture of glenoid cavity of scapula, right shoulder, initial encounter for closed fracture; S42.151A - Displaced fracture of neck of scapula, right shoulder, initial encounter for closed fracture
--- NOTE | 2020-09-29 10:18 | Discharge Summary ---
Date of Service September 29, 2020 Admission HPI Per Admitting Provider Patient is a 65-year-old female who is presented to the emergency room today from our office with a right shoulder dislocation. She states that yesterday she fell outside of [employer] on uneven concrete. She landed directly onto her right arm. She does not recall any other injuries. She presented to the emergency room after that fall and x-rays of her right shoulder were obtained. She was found to have a right shoulder dislocation at that time. There were multiple attempts at reducing the shoulder and she was sent home in a sling with the assumption that the shoulder was reduced. She states that she did have pain that was really unchanged throughout the entire night. She did have an incident where she raised her arm up overhead and felt some crunching sounds. She did not have any resolution or worsening of her pain after that. She presented to our office for an outpatient dressing change of her left hand that she recently had a trigger digit release on on September 21, 2020. She informed us of her shoulder dislocation. We did obtain new x-rays in the office as an outpatient today which showed recurrent dislocation of her right shoulder. She was advised to go to the directly to the emergency room. Multiple reduction attempts were obtained in the emergency room today they were unable to get it completely reduced or at least keep it reduced. She had a CT scan with her shoulder dislocated. We were asked to come up and see her to possibly think about taking her to the operating room. Another conscious sedation and reduction of her shoulder was obtained. The shoulder was reduced. A CT scan was performed post reduction which showed bony fragment in her glenohumeral joint. We will also order an MRI which will be obtained during her admission. Due to the finding of the bony fragment in her joint surgical invention was recommended. She will be admitted to [facility] today for plans for open reduction internal fixation of her right glenoid fracture with Dr. Cardozo on September 27, 2020. She understands and agrees to proceed with surgery. Admission Exam Per Admitting Provider Physical Exam Constitutional: WD/WN, vitals as above Eyes: PERRL, conjunctivae normal, anicteric sclerae ENMT: external ear and nose normal, oropharynx normal Neck: trachea midline, no thyromegaly Respiratory: normal respiratory effort, lungs clear to auscultation Cardiovascular: RRR, no murmur, no edema Chest (Breasts): Chest: normal inspection of chest Additional Comments: Ecchymosis in her axilla and right side of her chest and breast tissue. Mild tenderness with palpation in her axilla. Gastrointestinal (Abdomen): normal bowel sounds, soft, nontender, no hepatosplenomegaly Musculoskeletal: Exam focused on her right upper extremity: She has distal neurovascular function is normal of her right upper extremity today. She tolerates full range of motion of her fingers with flexion extension. She tolerates full range of motion of her wrist with flexion and extension. She is nontender at her hand wrist or forearm. She has no tenderness at her elbow and does have pain with flexion extension of her elbow today. She has pain with any type of movement of her right shoulder joint. She has tenderness with palpation across her shoulder diffusely. No visible deformity. No muscular atrophy. Ecchymosis noted. She is nontender with her palpation of her upper arm, biceps tendon is or triceps. She has no evidence of trauma of her right elbow. No olecranon bursal effusion. Postreduction and light sedation we are able to passively internally externally rotate the shoulder. Skin: no rashes, warm and dry Neurologic: patellar DTR's 2+ bilat, sensation intact Psychiatric: A+Ox3, euthymic affect Principal Diagnosis Right shoulder dislocation/glenoid fracture Discharge Exam Right shoulder: Foam tape dressing was removed from the patient's right shoulder. Portal sites are closed completely with sutures in place. Patient does have edema over the anterior shoulder as well as some ecchymosis in the axillary region. She is able to reach terminal flexion-extension her elbow. Has full range of motion of her wrist. [employer] strength in the right hand is slightly diminished compared to that of the left. She is neurovascularly intact. Peripheral pulses are 2+. Capillary fill is less than 2 seconds. I did apply new dressing consisting of sterile 2 x 2's and Tegaderms. I did tell the patient I was planning on placing Band-Aids over the region but she states that she wants to be able to shower and is not sure if she can put a waterproof dressing over the shoulder by herself therefore that is why I chose to apply the Tegaderms. I also placed a sterile ABD pad in her axilla. Discharge Data Allergies Allergy/AdvReac Type Severity Reaction Status Date / Time amoxicillin Allergy Unknown Rash Verified 09/26/20 10:57 bee venom protein (honey bee) Allergy Unknown Anaphylaxis Verified 09/26/20 10:57 carbamazepine Allergy Unknown Hives Verified 09/26/20 10:57 lamotrigine Allergy Unknown Hives Verified 09/26/20 10:57 Penicillins Allergy Unknown Hives Verified 09/26/20 10:57 Sulfa (Sulfonamide Allergy Unknown Hives, Verified 09/26/20 10:57 Antibiotics) itching, N/V, diarrhea sulfamethoxazole Allergy Unknown Hives, Verified 09/26/20 10:57 itching, N/V, diarrhea trimethoprim Allergy Unknown Hives, Verified 09/26/20 10:57 itching, N/V, diarrhea Consultations 09/27/20 17:19 Consult Hospitalist Routine Procedures Performed Operation Date: 09/27/20 11:50 Actual Procedures p Right Arthroscopic Bankart Repair(Right) - Johnathan Cardozo MD Ordered Studies 09/26/20 11:24 CT shoulder RT wo con Stat 09/26/20 14:48 CT shoulder RT wo con Stat 09/26/20 15:41 MR shoulder RT wo con Stat 09/27/20 08:47 US - OR guided needle placemen Routine Hospital Course (1) Dislocated shoulder: Patient had an uneventful 2 night stay at the hospital. She states that her pain is well controlled with p.o. medications. She is anxious to be discharged home today with in-home health services for the next few weeks. She is scheduled follow-up with Dr. Cardozo next Friday at noon. Discharge later today Planning on him home health services for the first 2 weeks postoperatively May come out of sling to work on range of motion of elbow wrist hand and fingers Ice with EZ wrap Pain control with p.o. medications. Patient states that she has some oxycodone left over from her emergency department visit will use this for breakthrough pain, otherwise she plans on alternating with her meloxicam and Tylenol for pain control. Follow-up with Dr. Cardozo as previously Scheduled next Friday at noon. With any questions contact our clinic at [phone]. (2) Glenoid fracture of shoulder: Total Time Total Time Spent Total Time Spent (In Minutes): 20 minutes Discharge Plan Discharge Items Patient Disposition: Home - Home Health Services Reason For Visit: RIGHT SHOULDER FRACTURE/DISLOCATION Discharge Diagnosis: Right shoulder fracture dislocation Activity: Per Instructions section Lifting: None Lifting Comment: no lifting right arm at all times. Bathing: Keep incision dry Sexual Activity: Wait until after follow-up appointment Exercise/Sports: Wait until after follow-up appointment Driving/Machine Use: No driving until cleared by podiatric foot and ankle specialist Weightbearing: Left weightbearing and Right non-weightbearing Weightbearing Comment: With sling use on right upper extremity Non-emergency contact: Surgeon Call non-emergency contact if: you have any medication questions, your symptoms worsen, your pain is not controlled, your temperature is above 101, your wound has increased redness and your wound has increased drainage Follow-up/Referrals: Cookie Correia CRNP [Primary Care Provider] - Johnathan Cardozo MD [Surgeon] - 10/02/20 12:00 pm Diet: Regular Addtl Attending Provider Instructions: The following are instructions to follow after "Shoulder Surgery" including, Acromioplasty, Rotator Cuff Repair and Instability Surgery ACTIVITY RECOMMENDATIONS: * Minimize activity after surgery. * No excessive walking, jogging, sports or laboring. * Return to activity is individualized depending on the patient and type of surgery. * Driving is not permitted until at least your first post operative visit. Please ask your doctor when it is safe to resume driving. * Expect increased discomfort with increased activity. Continue to ice the shoulder as needed. SCHOOL/WORK RECOMMENDATIONS: * You may return to sedentary work or school when you are feeling more comfortable. This is usually 3-7 days after surgery. MEDICATIONS: * You will have a prescription for pain medication and an anti-inflammatory medication after surgery. * Use the pain medication for severe pain and the anti-inflammatory for less severe pain. Once the pain medication has run out, try to use the anti-inflammatory medication. If this is not effective, contact the office for assistance. * The pain medication may cause nausea, constipation and drowsiness. You should see how they affect you before driving or similar activity. * The anti-inflammatory medication may cause stomach upset and bleeding. If this occurs let your doctor know immediately . * Take a stool softener like Colace or a laxative like Senokot to prevent constipation. DIET: * Resume previous diet. SPECIAL CARE: ICE: * Use ice for 15 to 20 minutes every 2-3 hours as needed for pain and swelling. ELEVATION: * You may be more comfortable sleeping in an upright position. Use the sling to elevate your arm. DRESSING: * Your dressing will be changed at your first therapy appointment approximately 4-5 days after surgery, This will be done at your first follow-up appointment on October 02, 2020. Band-aids, tape strips or gauze may be applied. You may then change your dressing daily. * Always wash your hands prior to touching the incision area. * Once the stitches are removed, you may leave the wound open to air or cover with gauze. * Expect some bloody drainage for the first few days after surgery. * Leave the tape strips, if present, in place for 5-7 days. * Band-aids and gauze may be changed daily. * There may be a gauze pad in your armpit area. This can be changed daily or replaced by a dry washcloth. SLING/BRACE: * You will need to use a sling or brace after surgery. The length of time the sling is used is dependent upon the type of surgery performed. * Keep your sling on your right arm at all times. BATHING: * Do not move your right shoulder to bathe. Keep it clean and dry. Keep the sling on at all times. * You may shower or sponge-bathe immediately after surgery. The post operative shoulder dressing is mostly water-tight. You may shower right over this dressing, but be reasonably careful not to get the gauze or incision wet. * Once the dressing has been changed on the fourth or fifth day after surgery, you may shower and get the incision wet. * Wash with regular soap and water. * Do not bathe (submerge the incision), soak, swim or use a hot tub until the incision is completely healed over with normal skin and the doctor has given the OK to proceed. * There is no need to apply any ointments, powders or salves to your incision. * Do not apply alcohol or hydrogen peroxide directly to the incision. * Diluted peroxide (50:50 mixture with sterile saline) may be used to clean dried blood from around the incision area. THERAPY: * You will begin therapy four or five days after surgery. * Do not start your therapy until instructed by Dr. Cardozo. FOLLOW UP VISIT: * If not already scheduled, please call the office at to schedule a follow-up appointment for 10 days after surgery and monthly thereafter. Pending Studies at Discharge: No Stand-Alone Forms: My [facility] [address] Text A Cab, Smoking Cessation Medications and DC Order Prescriptions: Continued venlafaxine 150 mg Capsule,Extended Release 24hr 150 mg PO QAM Qty: 0 RF: 0 hydrochlorothiazide 25 mg Tablet 25 mg PO QAM Qty: 0 RF: 0 polyethylene glycol 3350 [Miralax] 17 gram Powder In Packet 17 g PO DAILY PRN (Reason: Constipation) Qty: 0 RF: 0 valacyclovir [Valtrex] 1 gram Tablet 1,000 mg PO UD PRN (Reason: Cold Sores) Qty: 0 RF: 0 cholecalciferol (vitamin D3) 2,000 unit Capsule 2,000 unit PO QAM Qty: 0 RF: 0 Complete [place] 700-1,500 mg-mg Capsule 1 cap PO QAM Qty: 0 RF: 0 Metamucil [facility] Fiber 3.4 gram/5.8 gram Powder 1 dose PO QAM Qty: 0 RF: 0 lisinopril 10 mg tablet 10 mg PO QAM Qty: 0 RF: 0 fluticasone propionate 50 mcg/actuation spray,suspension 2 sprays intranasal BID Qty: 16 RF: 0 omeprazole 20 mg Capsule,Delayed Release(Dr/Ec) 20 mg PO QAM RF: 0 methocarbamol 500 mg Tablet 500 mg PO Q8H PRN (Reason: Pain) RF: 0 simvastatin 40 mg Tablet 40 mg PO HS RF: 0 albuterol sulfate [Ventolin HFA] 90 mcg/actuation Hfa Aerosol Inhaler 2 puff INHALATION UD PRN (Reason: SHORT OF BREATH) RF: 0 turmeric 400 mg Capsule 400 mg PO QAM RF: 0 lisinopril 20 mg tablet 20 mg PO QAM RF: 0 baclofen 20 mg tablet 20 mg PO TID PRN (Reason: Muscle Spasm) RF: 0 naproxen sodium [Aleve] 220 mg Tablet 220 mg PO Q12H PRN (Reason: Pain) RF: 0 Anacin 400-32 mg Tablet 1 tab PO UD PRN (Reason: Pain) RF: 0 meloxicam 15 mg tablet 15 mg PO DAILY PRN (Reason: pain) RF: 0 levetiracetam 250 mg tablet 250 - 500 mg PO BID RF: 0 magnesium oxide 500 mg Tablet 500 mg PO DAILY RF: 0 diclofenac sodium 1 % Gel 2 g TOPICAL QID PRN (Reason: Pain) RF: 0 Discharge Orders: Discharge Order (Routine); Ordered 09/29/20 Ordered By: Dannie Collins Admission Data Admit Date/Time: 09/26/20 16:18 Attending Provider: Johnathan Cardozo Admit Provider: Johnathan Cardozo Primary Care Provider: Cookie Correia Other Providers: Rayray John
--- NOTE | 2020-09-29 18:38 | Hospitalist Progress Note ---
Date of Service September 29, 2020 Assessment & Plan (1) Accelerated essential hypertension: Plan: -Not terribly high and baby pain related -It sounds as if patient does not have adequate blood pressure control at home as her PCP recently increased her BP medication -With this recent increase, I need to increase it further as it may take a full 4 weeks for added benefit -In addition, uncontrolled pain may be contributing to elevated blood pressure as her BP yesterday was adequately controlled -Would advise no additional changes in medication at this time -Encouraged patient to take something more than tramadol if needed for pain (is ordered by Ortho) (2) Dislocated shoulder: Plan: -S/p reduction (3) Glenoid fracture of shoulder: Plan: -S/p arthroscopic repair POD #2 -recommend adequate postoperative pain management, PT/OT, incentive spirometry, and DVT prophylaxis X 14 days (drug, dose, duration are at the discretion of p rimary team) (4) Bankart lesion of right shoulder: Plan: - s/p repair-- see above (5) HTN (hypertension): Plan: -Agree with resumption of HCTZ and lisinopril as prior to hospitalization. See above (6) Mood disorder: Plan: -Continue Effexor (7) IBS (irritable bowel syndrome): Plan: -Patient has a history of IBS with diarrhea. Having frequent/loose BMs. On a bowel regimen due to likelihood of constipation from opioid medication. We will hold bowel regimen for now and use MiraLAX as needed. (8) Hypokalemia: Plan: -Replace with follow-up lab data in the a.m. to trend Plan: -Patient noted to be on Keppra. Uncertain as to why. Reports no history of seizure. Was able to review records and patient follows neurology for headaches/cervico-occipital neuralgia and cerebral cavernoma. She is on Keppra for her neuralgia. Continue this -No medical contraindications to proceed with discharge to home. Thank you for allowing me to participate in this patient's care Admission and Anticipated Discharge Date Admission Date: September 26, 2020 Subjective Patient seen on daily rounds today. Reports that her pain is not controlled. She is taking Ultram which is "not controlling the pain" but she refuses to take the oxycodone on order as it "makes her funny". Pain rated as a 7/10. It is making her anxious. BP this morning was elevated at 150/96 following her BP medications. Claims her lisinopril was recently increased by her PCP due to uncontrolled blood pressures. Denies a headache. Potassium supplemented yesterday and repeat is normal at 3.7 Patient has been discharged by Ortho. Review of Systems Review of Systems: All systems reviewed and are unremarkable except as noted in HPI and below Denies fevers, chills, headache, nasal congestion, sore throat, cough, chest pain, shortness of breath, abdominal pain, nausea, vomiting, dysuria, hematuria, frequency, skin lesions or rashes. Physical Exam 2 Physical Exam: General: Resting comfortably in her hospital bed. NAD. Neck: No JVD. Negative hepatojugular reflex Cardiac: Distant due to habitus but RRR without M/G/R Lungs: Diminished without W/R/R Abdomen: Normoactive X4. Soft and nontender in all quadrants. Extremities: Right upper extremity in postsurgical sling. Capillary refill +2. Radial pulse intact and symmetrical bilaterally. Fine motor/dexterity intact. Neurovascular intact Neuro: A&O X4 cranial nerves II through XII are grossly intact no focal neuro deficits Skin: No obvious skin lesions or rashes Results & Data Results & Data ([facility]) Vital Signs (Past 12 Hours) Vital Signs Temp Pulse Resp BP Pulse Ox 09/29/20 10:56 36.8 C 09/29/20 09:51 65 150/96 H 09/29/20 08:13 36.8 C 65 18 164/106 H 95 Laboratory Results 09/28/20 06:48 09/29/20 05:43 PG Care Time/CCT Total # of Minutes Spent Total Time Spent with Patient: Total time spent is greater than 50% in coordination of care (as documented) at patient's floor/unit and/or counseling patient: Coding [place] [address] Inpt Consult Level 2 Patient Type Established Diagnoses Dislocated shoulder S43.004A Encounter type: initial encounter Laterality: right Glenoid fracture of shoulder S42.141A; S42.151A Encounter type: initial encounter Fracture type: closed Laterality: right Bankart lesion of right shoulder S43.491A Encounter type: initial encounter HTN (hypertension) I10 Mood disorder F39 IBS (irritable bowel syndrome) K58.9 Hypokalemia E87.6 Accelerated essential hypertension I10 (1) Dislocated shoulder Encounter type: initial encounter Laterality: right Qualified Code(s): S43.004A - Unspecified dislocation of right shoulder joint, initial encounter (2) Glenoid fracture of shoulder Encounter type: initial encounter Fracture type: closed Laterality: right Qualified Code(s): S42.141A - Displaced fracture of glenoid cavity of scapula, right shoulder, initial encounter for closed fracture; S42.151A - Displaced frac ture of neck of scapula, right shoulder, initial encounter for closed fracture (3) Bankart lesion of right shoulder Encounter type: initial encounter Qualified Code(s): S43.491A - Other sprain of right shoulder joint, initial encounter
== END 2020-09-29 14:51 | disposition home health service (06) | DRG 516 ==
LOC: ED 10:06 → 3W 16:18

== ENCOUNTER 2021-07-24 08:16 | Observation (INO) ==
--- NOTE | 2021-06-18 08:28 | PAT Medication Instructions ---
Medication Instructions Date of Service June 18, 2021 Home Medications Medication Instructions Recorded tramadol 50 mg tablet 50 mg PO BID PRN #30 tab 10/12/20 baclofen 20 mg tablet 20 mg PO TID PRN #90 tab 12/04/20 venlafaxine 150 mg capsule,extended release 24 hr 150 mg PO QAM hydrochlorothiazide 25 mg tablet 25 mg PO QAM valacyclovir 1 gram tablet (Valtrex) 1,000 mg PO UD PRN cholecalciferol (vitamin D3) 50 mcg (2,000 unit) capsule 2,000 unit PO QAM fluticasone propionate 50 mcg/actuation nasal spray,suspension 2 sprays INTRANASAL BID omeprazole 20 mg capsule,delayed release 20 mg PO QAM methocarbamol 500 mg tablet 500 mg PO Q8H PRN simvastatin 40 mg tablet 40 mg PO HS turmeric 400 mg capsule 400 mg PO QAM meloxicam 15 mg tablet 15 mg PO DAILY PRN diclofenac sodium 1 % topical gel 2 g TOPICAL QID PRN magnesium oxide 500 mg tablet 500 mg PO QPM lisinopril 20 mg tablet 20 mg PO QAM tramadol 50 mg tablet 50 mg PO BID PRN baclofen 20 mg tablet 20 mg PO TID PRN levetiracetam 250 mg tablet 250 mg PO QAM levetiracetam 250 mg tablet 500 mg PO QPM Antibiotic Rx 1 tab PO BID acetaminophen 500 mg tablet 500 - 1,000 mg PO Q6H PRN psyllium husk 3.4 gram/5.4 gram oral powder (Metamucil) 1 tbsp PO QAM Continue as directed Antibiotic Rx 1 tab PO BID ASK your surgeon for instructions meloxicam 15 mg tablet 15 mg PO DAILY PRN STOP taking 2 weeks before surgery (or as soon as possible if surgery is within 2 weeks) turmeric 400 mg capsule 400 mg PO QAM STOP taking 24 hours before surgery diclofenac sodium 1 % topical gel 2 g TOPICAL QID PRN DO NOT take the morning of surgery hydrochlorothiazide 25 mg tablet 25 mg PO QAM cholecalciferol (vitamin D3) 50 mcg (2,000 unit) capsule 2,000 unit PO QAM methocarbamol 500 mg tablet 500 mg PO Q8H PRN lisinopril 20 mg tablet 20 mg PO QAM baclofen 20 mg tablet 20 mg PO TID PRN psyllium husk 3.4 gram/5.4 gram oral powder (Metamucil) 1 tbsp PO QAM Take morning of surgery With a small sip of water, OTHERWISE NOTHING TO EAT OR DRINK AFTER MIDNIGHT: venlafaxine 150 mg capsule,extended release 24 hr 150 mg PO QAM valacyclovir 1 gram tablet (Valtrex) 1,000 mg PO UD PRN (if needed) fluticasone propionate 50 mcg/actuation nasal spray,suspension 2 sprays INTRANASAL BID omeprazole 20 mg capsule,delayed release 20 mg PO QAM tramadol 50 mg tablet 50 mg PO BID PRN (okay to take up to 4 hours prior to surgery if needed) levetiracetam 250 mg tablet 250 mg PO QAM acetaminophen 500 mg tablet 500 - 1,000 mg PO Q6H PRN(okay to take up to 4 hours prior to surgery if needed) Take evening before surgery valacyclovir 1 gram tablet (Valtrex) 1,000 mg PO UD PRN (if needed) fluticasone propionate 50 mcg/actuation nasal spray,suspension 2 sprays INTRANASAL BID methocarbamol 500 mg tablet 500 mg PO Q8H PRN (if needed) simvastatin 40 mg tablet 40 mg PO HS magnesium oxide 500 mg tablet 500 mg PO QPM tramadol 50 mg tablet 50 mg PO BID PRN (if needed) baclofen 20 mg tablet 20 mg PO TID PRN (if needed) levetiracetam 250 mg tablet 500 mg PO QPM acetaminophen 500 mg tablet 500 - 1,000 mg PO Q6H PRN (if needed) Other Notes If you have any questions please call us at [phone] or [phone] or [phone] or [phone]
--- NOTE | 2021-06-18 09:20 | Anesthesiology Consultation ---
Date of Service June 18, 2021 Assessment & Plan (1) Encounter for pre-operative examination: Chart Review Chart Review: Acceptable Risk for Surgery (pending preop Covid testing results ) and Patient seen in Pre Admission Testing Per PAT appt on 06/18/21, patient denies any recent travel or large group activities. No known Covid positive exposures. Mild URI symptoms- on Doxy- improving. No known Covid infection in the past 90 days. Pt is vaccinated for Covid. Preop Covid testing scheduled 07/20/21 = will await results. Educated on importance of self quarantining, social distancing and wearing mask in public for the patient one week prior to surgery and after Covid testing done Last seen by neuro 03/13/21= pt seen for follow up on headaches, trigeminal neuralgia, cerebral cavernoma. Pt with recent persistent left sided cephalgia- a bit atypical for patient. Neuro recommended updated MRI. Continue Keppra and Baclofen for chronic mixed headache disorder. Follow up in four months. Per Neuro [employer] note 03/22/21= MRI reviewed- shows no significant change compared to previous studies. Her cavernoma is stable. No other significant pathology identified. Right shoulder Arthroscopic Bankart Repair 09/27/20= Done under GA with Grade 1 view with Gray #2. ETT #7.5. Atraumatic DL x 1. Teaching & Discussion Pre-Anesthesia Teaching/Discussion Notes: Instructed NPO after midnight before surgery,except medications with 15 cc of water. Medication instructions provided according to the PAT guidelines. History Surgery Operation Date: 07/24/21 12:30 Proposed Procedures p Right Reverse Total Shoulder Arthroplasty - Ghulam Wesotn, Height/Weight Height: 5 ft 2 in Weight: 110.3 kg Allergies Allergy/AdvReac Type Severity Reaction Status Date / Time amoxicillin Allergy Unknown Rash Verified 06/15/21 16:10 bee venom protein (honey bee) Allergy Unknown Anaphylaxis Verified 06/15/21 16:10 carbamazepine Allergy Unknown Hives Verified 06/15/21 16:10 lamotrigine Allergy Unknown Hives Verified 06/15/21 16:10 Penicillins Allergy Unknown Hives Verified 06/15/21 16:10 Sulfa (Sulfonamide Allergy Unknown Hives, Verified 06/15/21 16:10 Antibiotics) itching, N/V, diarrhea sulfamethoxazole Allergy Unknown Hives, Verified 06/15/21 16:10 itching, N/V, diarrhea trimethoprim Allergy Unknown Hives, Verified 06/15/21 16:10 itching, N/V, diarrhea Medications Home Medications Medication Instructions Recorded Confirmed Last Taken venlafaxine 150 mg 150 mg PO QAM #0 cap 02/10/13 06/15/21 09/25/20 capsule,extended release 24 hr hydrochlorothiazide 25 mg tablet 25 mg PO QAM #0 tab 04/08/13 06/15/21 09/26/20 valacyclovir 1 gram tablet 1,000 mg PO UD PRN #0 04/29/16 06/15/21 07/21/20 (Valtrex) cholecalciferol (vitamin D3) 50 2,000 unit PO QAM #0 09/02/17 06/15/21 09/26/20 mcg (2,000 unit) capsule fluticasone propionate 50 2 sprays INTRANASAL BID #16 gm 11/17/18 06/15/21 09/26/20 mcg/actuation nasal spray,suspension omeprazole 20 mg capsule,delayed 20 mg PO QAM 08/02/19 06/15/21 09/25/20 release methocarbamol 500 mg tablet 500 mg PO Q8H PRN 07/25/20 06/15/21 07/23/20 simvastatin 40 mg tablet 40 mg PO HS 07/25/20 06/15/21 09/25/20 turmeric 400 mg capsule 400 mg PO QAM 07/25/20 06/15/21 09/26/20 meloxicam 15 mg tablet 15 mg PO DAILY PRN 09/15/20 06/15/21 Unknown diclofenac sodium 1 % topical gel 2 g TOPICAL QID PRN 09/25/20 06/15/21 Unknown magnesium oxide 500 mg tablet 500 mg PO QPM 09/25/20 06/15/21 09/26/20 lisinopril 20 mg tablet 20 mg PO QAM 09/26/20 06/15/21 09/26/20 tramadol 50 mg tablet 50 mg PO BID PRN #30 tab 10/12/20 06/15/21 Unknown baclofen 20 mg tablet 20 mg PO TID PRN #90 tab 12/04/20 06/15/21 Unknown levetiracetam 250 mg tablet 250 mg PO QAM 03/06/15/21 05/07/21 levetiracetam 250 mg tablet 500 mg PO QPM 05/07/21 06/15/21 05/06/21 Antibiotic Rx 1 tab PO BID 06/15/21 06/15/21 Unknown acetaminophen 500 mg tablet 500 - 1,000 mg PO Q6H PRN 06/15/21 06/15/21 Unknown psyllium husk 3.4 gram/5.4 gram 1 tbsp PO QAM 06/15/21 06/15/21 Unknown oral powder (Metamucil) Past Medical History Medical History (Updated 06/19/21 @ 08:52 by Nisreen Draper PA-C) Anxiety and depression Cavernous hemangioma of brain Remote hx Per 03/22/21 brain MRI: "A cavernoma in the left parietal white matter is unchanged from prior studies." Chronic back pain Deep vein thrombosis Age 18 (post-op/fatty tumor excision) - no issues since that time GERD (gastroesophageal reflux disease) Well controlled and stable Headache Follows with DR COREAS- carito Miller (last seen 03/13/21) Hiatal hernia High cholesterol History of diverticulitis History of IBS Hx of gout Hypertension Morbid obesity Peptic ulcer disease Spinal stenosis Trigeminal neuralgia HX LEFT SIDE Stable- does get occ left sided face pain URI (upper respiratory infection) Symptoms since end of April 2021- on Doxycycline - will finish around 06/20/21 Symptoms improving Exercise / Class Metabolic Activity III < 4 Walking/Shop/Light housework (one flight of stairs - no chest pain, mild SOB ) Past Family History Family History Brother Cancer Hypertension Mother Patient's mother is Cancer Sister Hypertension Father No problems noted. Unknown FH: kidney cancer Other Family history non-contributory No family history of adverse response to anesthesia Patient's father is Past Surgical History Surgical History H/O brain surgery Left side d/t "TMJ nerve" H/O left inguinal hernia repair x3 H/O toe surgery Right toe x6, Left toe x1 (r/t gout) H/O vascular surgery R/L varicose vein ablation History of appendectomy History of carpal tunnel release R/L History of cholecystectomy History of colonoscopy Colonoscopy (07/28/20): MAC at [facility] History of dilatation and curettage History of esophagogastroduodenoscopy (EGD) History of hernia repair Laparoscopic repair left Spigelian hernia with mesh (05/07/18): Grade 2 view, MAC#3, ETT 7.5 at [facility] History of knee replacement procedure of right knee History of repair of hiatal hernia History of tooth extraction History of total abdominal hysterectomy and bilateral salpingo-oophorectomy Rotator cuff arthropathy of left shoulder S/P excision of lipoma Removed from left leg (age 18) Status post wrist surgery Right wrist brian (r/t fracture) Past Anesthesia History No Hx of Anesthesia Complications and No Family Hx of Anesthesia Complications History of PONV No Hx of PONV and No Hx of Motion Sickness Social History Smoking Status: Never smoker Do You Dip or Chew Tobacco: No Hx Alcohol Use: Yes Alcohol type: hard liquor alcohol intake frequency: holidays/special occasions only Hx Substance Use: No substance use type: prescription drug Review of Systems Recent wheezing - on antibiotic Hx of snoring - no witnessed apnea- no hx of sleep study Patient denies chest pain, shortness of breath, dyspnea on exertion, cough, palpitations. No hx of seizures, stroke, MO, apnea/snoring. No hx of blood transfusions Physical Exam Vital Signs VITALS BP 135/85 P 68 TEMP 98.3 SP02 96% RESP 16 Constitutional no acute distress ENMT Mouth: no TMJ clicking Thyromental Distance: > or= 3.5 Finger Breadths (3.5) Mallampati Class: III Bottom partial denture Neck + short neck, + thick neck and + limited neck extension (mild ) Respiratory normal respiratory effort; no respiratory distress Auscultation: lungs clear to auscultation bilaterally; no wheezes Cardiovascular Rate/Rhythm: regular rate and regular rhythm Heart Sounds: no murmur Vessels: no carotid bruit Musculoskeletal Spine: + pain with cervical ROM Extremities: extremities normal to inspection Psychiatric Orientation: alert Lab Results Anesthesia Preop Results Results Anesthesia Widget: WBC 6.80 K/uL (4.8-10.8) 06/18/21 Hgb 14.1 g/dL (12.0-16.0) 06/18/21 Hct 42.1 % (37-47) 06/18/21 Plt 205 K/uL (130-400) 06/18/21 Na 139 mmol/L (136-145) 06/18/21 K 4.0 mmol/L (3.5-5.1) 06/18/21 Cl 101 mmol/L (98-107) 06/18/21 CO2 32 mmol/L (21-32) 06/18/21 BUN 21 mg/dl (6-23) 06/18/21 Creat 0.82 mg/dl (0.6-1.2) 06/18/21 Glucose Level 83 mg/dl (70-99(Fasting)) 06/18/21 PT 11.1 Seconds (9.0-12.0) 06/18/21 PTT 24.8 Seconds (21.0-31.0) 06/18/21 INR 1.0 (0.9-1.1) 06/18/21 Blood Type B Positive 06/18/21 Antibody Screen NEGATIVE 06/18/21 Testing Electrocardiogram Date: 06/18/21 Findings: + NSR @ (68 bpm ) Normal EKG per cardio Chest X-Ray Date: 06/18/21 Findings: + NAD Other Testing Brain MRI 03/22/21= No acute intracranial abnormality is identified. A cavernoma in the left parietal white matter is unchanged from prior studies.
--- NOTE | 2021-07-19 12:29 | History & Physical Report ---
Date of Service July 19, 2021 Assessment & Plan (1) Rotator cuff arthropathy of right shoulder: We will proceed with a right reverse shoulder arthroplasty. Postoperatively she will be placed in a sling and kept overnight for postoperative medical management. She plans to go to [facility] upon discharge. History of Present Illness Chief Complaint: Cuff arthropathy of the right shoulder. Primary Care Provider: TED Ryder Armida is a pleasant 66-year-old female who underwent a right rotator cuff repair by Dr. Cardozo in 2009. She also underwent a left rotator cuff repair before that by Dr. Austin. Her shoulders have been doing okay until recently. She had a fall back in September 2020 where she dislocated her right shoulder. She was admitted to the hospital. They had difficulty doing a closed reduction. A CT scan showed an incarcerated bony loose body. Dr. Cardozo took her to the operating room, removed the loose body and made sure her shoulder was stable. Unfortunately, she had a large retracted rotator cuff tear at the time. She has not done well with her right shoulder. She continues to have pain and weakness with it. Followup MRI of the right shoulder does show cuff arthropathy. She has elected proceed with a right reverse shoulder arthroplasty. Allergies Allergy/AdvReac Type Severity Reaction Status Date / Time amoxicillin Allergy Unknown Rash Verified 06/15/21 16:10 bee venom protein (honey bee) Allergy Unknown Anaphylaxis Verified 06/15/21 16:10 carbamazepine Allergy Unknown Hives Verified 06/15/21 16:10 lamotrigine Allergy Unknown Hives Verified 06/15/21 16:10 Penicillins Allergy Unknown Hives Verified 06/15/21 16:10 Sulfa (Sulfonamide Allergy Unknown Hives, Verified 06/15/21 16:10 Antibiotics) itching, N/V, diarrhea sulfamethoxazole Allergy Unknown Hives, Verified 06/15/21 16:10 itching, N/V, diarrhea trimethoprim Allergy Unknown Hives, Verified 06/15/21 16:10 itching, N/V, diarrhea Home Medications Medication Instructions Recorded Confirmed Type venlafaxine 150 mg 150 mg PO QAM #0 cap 02/10/13 06/15/21 History capsule,extended release 24 hr hydrochlorothiazide 25 mg tablet 25 mg PO QAM #0 tab 04/08/13 06/15/21 History valacyclovir 1 gram tablet 1,000 mg PO UD PRN #0 04/29/16 06/15/21 History (Valtrex) cholecalciferol (vitamin D3) 50 2,000 unit PO QAM #0 09/02/17 06/15/21 History mcg (2,000 unit) capsule fluticasone propionate 50 2 sprays INTRANASAL BID #16 gm 11/17/18 06/15/21 History mcg/actuation nasal spray,suspension omeprazole 20 mg capsule,delayed 20 mg PO QAM 08/02/19 06/15/21 History release methocarbamol 500 mg tablet 500 mg PO Q8H PRN 07/25/20 06/15/21 History simvastatin 40 mg tablet 40 mg PO HS 07/25/20 06/15/21 History turmeric 400 mg capsule 400 mg PO QAM 07/25/20 06/15/21 History meloxicam 15 mg tablet 15 mg PO DAILY PRN 09/15/20 06/15/21 History diclofenac sodium 1 % topical gel 2 g TOPICAL QID PRN 09/25/20 06/15/21 History magnesium oxide 500 mg tablet 500 mg PO QPM 09/25/20 06/15/21 History lisinopril 20 mg tablet 20 mg PO QAM 09/26/20 06/15/21 History tramadol 50 mg tablet 50 mg PO BID PRN #30 tab 10/12/20 06/15/21 Rx baclofen 20 mg tablet 20 mg PO TID PRN #90 tab 12/04/20 06/15/21 Rx levetiracetam 250 mg tablet 250 mg PO QAM 05/07/21 06/15/21 History levetiracetam 250 mg tablet 500 mg PO QPM 05/07/21 06/15/21 History Antibiotic Rx 1 tab PO BID 06/15/21 06/15/21 History acetaminophen 500 mg tablet 500 - 1,000 mg PO Q6H PRN 06/15/21 06/15/21 History psyllium husk 3.4 gram/5.4 gram 1 tbsp PO QAM 06/15/21 06/15/21 History oral powder (Metamucil) Past Med/Surg History Medical History Anxiety and depression Cavernous hemangioma of brain Remote hx Per 03/22/21 brain MRI: "A cavernoma in the left parietal white matter is unchanged from prior studies." Chronic back pain Deep vein thrombosis Age 18 (post-op/fatty tumor excision) - no issues since that time GERD (gastroesophageal reflux disease) Well controlled and stable Headache Follows with DR COREAS- carito Miller (last seen 03/13/21) Hiatal hernia High cholesterol History of diverticulitis History of IBS Hx of gout Hypertension Morbid obesity Peptic ulcer disease Spinal stenosis Trigeminal neuralgia HX LEFT SIDE Stable- does get occ left sided face pain URI (upper respiratory infection) Symptoms since end of April 2021- on Doxycycline - will finish around 06/20/21 Symptoms improving Surgical History H/O brain surgery Left side d/t "TMJ nerve" H/O left inguinal hernia repair x3 H/O toe surgery Right toe x6, Left toe x1 (r/t gout) H/O vascular surgery R/L varicose vein ablation History of appendectomy History of carpal tunnel release R/L History of cholecystectomy History of colonoscopy Colonoscopy (07/28/20): MAC at [facility] History of dilatation and curettage History of esophagogastroduodenoscopy (EGD) History of hernia repair Laparoscopic repair left Spigelian hernia with mesh (05/07/18): Grade 2 view, MAC#3, ETT 7.5 at [facility] History of knee replacement procedure of right knee History of repair of hiatal hernia History of tooth extraction History of total abdominal hysterectomy and bilateral salpingo-oophorectomy Rotator cuff arthropathy of left shoulder S/P excision of lipoma Removed from left leg (age 18) Status post wrist surgery Right wrist brian (r/t fracture) Family History Brother Cancer Hypertension Mother Patient's mother is Cancer Sister Hypertension Father No problems noted. Unknown FH: kidney cancer Other Family history non-contributory No family history of adverse response to anesthesia Patient's father is Social History Smoking Status: Never smoker Second Hand Exposure: Yes (MOTHER SMOKED); Hx Alcohol Use: Yes Alcohol type: hard liquor Hx Substance Use: No Preferred Language: Guinean Communication Ability: Effective Golf Superintendent Required: No Beliefs That Will Affect Care: None Current Living Situation: Alone current occupational status: retired Feels Safe at Home: Yes Assistive Devices: Cane, Denture - Upper, Denture - Lower and Glasses Review of Systems All systems reviewed & are unremarkable except as noted in HPI & below. Physical Exam On physical examination of the right shoulder, she has about 100 degrees forward elevation and 100 degrees of abduction. She has 4 out of 5 motor strength throughout. She has a lot of pain with range of motion of her shoulder. Constitutional WD/WN, vitals as above Eyes PERRL, conjunctivae normal, anicteric sclerae ENMT external ear and nose normal, oropharynx normal Neck trachea midline, no thyromegaly Respiratory normal respiratory effort Cardiovascular RRR, no murmur, no edema Gastrointestinal (Abdomen) normal bowel sounds, soft, nontender, no hepatosplenomegaly Psychiatric A+Ox3, euthymic affect Results & Data Results & Data Laboratory Results . Diagnostic Findings MRI of the right shoulder shows massive chronic retracted rotator cuff tear. The supraspinatus, infraspinatus, and subscapularis are retracted back to the level glenoid. There is significant fat atrophy of the muscle bellies. PG Care Time/CCT Total # of Minutes Spent Total Time Spent with Patient: Total time spent is greater than 50% in coordination of care (as documented) at patient's floor/unit and/or counseling patient: Coding Level of Care Code None Diagnoses Rotator cuff arthropathy of right shoulder M12.811
[~2021-07-24 08:16] MED LIST changes: +ACETAMINOPHEN 500 MG TAB PO SCH; -ALPR-411 PO; -BACL20TA PO; +BUPIVACAINE 0.5 % 5 MG/1 ML PF 10ML VIAL ONE; -CHLOTAB10 PO; -DOCU100T7 PO; -EFFSR150 PO; -GABA800T PO; +GABAPENTIN 300 MG CAP PO SCH; -HYDR25TA4 PO; +Ketorolac (*for OR use only*) 30 MG, dexAMETHasone 4 MG, KETAMINE HCL (**OR use only) 1... INFIL SCH; -LISI-461 PO; +LR 15ML/HR IV SCH; +LR 60ML/HR IV SCH; -NXM/40 PO; -OXYC1TAB3 PO; -POLY335019 PO; -RANI150T85 PO; -SIMV40TA4 PO; -TRAM-10 PO; +TRANEXAMIC ACID 1,000 MG **IV Intra-op IV SCH; +TRANEXAMIC ACID 1,000 MG **IV Pre-op IV SCH; -VALA1TAB31 PO; -VERA180T PO; +ceFAZolin 2000MG 2,000 MG/15 ML SYR IV SCH; +dexAMETHasone 4 MG TAB PO SCH
--- NOTE | 2021-07-24 08:36 | History & Physical Bridge Note ---
Date of Service July 24, 2021 History & Physical Bridge Note I have examined the patient, reviewed the History & Physical and in the interval since the performance of the History & Physical I have noted the following changes of clinical significance: no changes noted
[2021-07-24] MEDS ORDERED: fentaNYL citrate 100 MCG/2 ML VIAL IV PRN (09:06)
[2021-07-24] MEDS ORDERED: LABETALOL HCL IV 5 MG/ML 20ML IV PRN (09:06)
[2021-07-24] MEDS ORDERED: HYDROmorphone INJ 1 MG/ML SYRINGE IV PRN (09:06)
[2021-07-24] MEDS ORDERED: ATROPINE SULFATE 0.1 MG/ML 10ML SYR IV PRN (09:06)
[2021-07-24] MEDS ORDERED: PHENYLEPHRINE 100MCG/ML 5ML SYR IV PRN (09:06)
[2021-07-24] MEDS ORDERED: MEPERIDINE HCL 25 MG/ML CARP/VIAL IV PRN (09:06)
[2021-07-24] MEDS ORDERED: ePHEDrine sulfate 50 MG/ML AMP IV PRN (09:06)
[2021-07-24] MEDS ORDERED: ONDANSETRON INJ 2 MG/ML 2 ML VIAL IV PRN ×2 (09:06→14:09)
[2021-07-24] MEDS ORDERED: fentaNYL citrate 100 MCG/2 ML VIAL ONE (09:54)
[2021-07-24] MEDS ORDERED: MIDAZOLAM HCL 1 MG/ML 2ML VIAL ONE (09:54)
[2021-07-24] MEDS ORDERED: GLYCOPYRROLATE 0.2 MG/ML VIAL ONE ×3 (09:54→11:09)
[2021-07-24] MEDS ORDERED: DEXAMETHASONE SOD INJ 4 MG/ML VIAL ONE (09:54)
[2021-07-24] MEDS ORDERED: NEOSTIGMINE METHYLSULFATE 1 MG/ML 10ML VIAL ONE ×2 (09:54→11:09)
[2021-07-24] MEDS ORDERED: LIDOCAINE 2% 2 ML VIAL/AMP(20MG/ML) INFIL ONE (09:54)
[2021-07-24] MEDS ORDERED: PROPOFOL IV EMULSION 10 MG/ML 20 ML VIAL IV ONE (09:54)
[2021-07-24] MEDS ORDERED: ONDANSETRON INJ 2 MG/ML 2 ML VIAL ONE (09:54)
[2021-07-24] MEDS ORDERED: ORTHO JOINT ANESTHETIC ONE (10:58)
[2021-07-24] MEDS ORDERED: ROCURONIUM BROMIDE 10 MG/ML 5 ML VIAL IV ONE (11:09)
[2021-07-24] MEDS ORDERED: ePHEDrine sulfate 50 MG/ML SYR ONE (11:38)
--- NOTE | 2021-07-24 12:20 | Operative Report ---
PG Post Operative Report Pre & Post Diagnosis Operation Date: 07/24/21 10:40 Pre-Op Diagnosis: Rotator cuff arthropathy of right shoulder Post-Op Diagnosis: Rotator cuff arthropathy of right shoulder I identified the patient and participated in the time-out.: Yes Procedure Operation Date: 07/24/21 10:40 Actual Procedures p Right Reverse Total Shoulder Arthroplasty(Right) - Ghulam Weston DO Surgeon Ghulam Weston DO Foundry Worker Apprentice Ghulam Hobbs PAC Estimated Blood Loss 300 Findings Consistent with Post-Op Diagnosis Specimens Right humeral head Complications none Disposition Disposition: Recovery Room Indications Janiya is a pleasant six 6-year-old female whose had several traumas to the right shoulder. She has a retracted rotator cuff tear and has had a dislocation. After failing further conservative treatment, she elected proceed with a right reverse shoulder arthroplasty. Description of Procedure Implants used: I used a [employer]omet Comprehensive reverse total shoulder arthroplasty system with a size 13 press fit micro humeral stem, a +6 offset humeral tray and a standard humeral bearing, a 25 mm small augment baseplate with a 6.5 mm central screw and superior and inferior locking screws, and a size 40 mm eccentric glenosphere. Carla arrived at [facility] for the above procedure. She was seen in the preoperative holding area and the operative extremity was identified and signed. She was given a preoperative antibiotic, TXA, and an interscalene nerve block. She was taken back to the operating room, laid on table in supine position, and put under general anesthesia. She was then put into the beachchair position. The shoulder was then prepped and draped in sterile fashion. A timeout was done and the patient and the operative extremity was properly identified. A deltopectoral approach was used. Dissection was taken down through the fascia and the deltoid was retracted laterally and the conjoined tendon was retracted medially. The anterior shoulder was exposed. The biceps tendon was absent. The subscapularis was then directly released off the lesser tuberosity with a peel technique. The inferior capsule was released and the humeral head was dis located. A canal finding reamer was sent down the center of the humeral canal. Sequential reaming up to a size 13 reamer was done. Off that reamer, a proximal humeral resection guide was placed. The proximal humerus was resected at 135 of inclination and 25 of retroversion. Osteophytes were then removed and the glenoid was exposed. Time was spent doing a complete capsular and labral relea se. The glenoid guide was then placed in the inferior aspect of the glenoid. A 3.2 mm Steinmann pin was then placed into the glenoid vault at 10 of inclination. The glenoid baseplate was then reamed. The final size 25 mm small augment baseplate was then impacted in the place. A 6.5 mm central screw was then placed followed by superior and inferior locking screws. A 40 mm eccentric glenosphere was then impacted into place. Surrounding soft tissues were then injected with 100 cc an orthopedic pain control cocktail. The proximal humerus was then exposed. Sequential broaching of the humerus up to a size 13 broach was done. Off that broach a +6 offset humeral tray was trialed. The shoulder was then reduced, brought through a full range of motion, and felt to be stable. The shoulder was then dislocated and the broach was removed. The final size 13 micro press-fit humeral stem was then impacted into place. A standard humeral bearing was then snapped onto a +6 offset humeral tray. The humeral tray was then impacted onto the humeral stem. The shoulder was once again reduced, brought through a full range of motion, and felt to be stable. The subscapularis was retracted and poor quality. It was unable to be repaired. A dilute betadyne lavage was then done for 3 minutes. The joint was then irrigated with normal saline solution. Hemostasis was obtained. The interval was closed with 2-0 Vicryl suture. The skin was then closed with 2-0 Vicryl and rubia. A Silverlon dressing was placed and the arm was rested in a regular arm sling. She was then extubated and transferred to a hospital bed. She taken to the postanesthesia care unit in stable condition. She tolerated the procedure well. Ghulam Hobbs PA-C, was present for the entire procedure. He was critical for patient positioning, prepping, draping, retraction exposure, wound closure and application of sterile dressing. I attest to the content of the Intraoperative Record and any orders documented therein. Any exceptions are noted below.
--- NOTE | 2021-07-24 13:24 | Anesthesiology Progress Note ---
Date of Service July 24, 2021 Anesthesia Post Procedure Vital Signs Vital Signs: Temp Pulse Pulse Resp BP Pulse Ox 07/24/21 13:15 77 18 115/81 93 07/24/21 13:05 81 16 105/73 93 07/24/21 12:55 78 16 125/81 95 07/24/21 12:45 78 16 134/81 93 07/24/21 12:38 36.1 C L 82 18 135/80 93 07/24/21 08:46 36.9 C 80 20 125/94 93 Pain Intensity Right Axilla: Pain Intensity: 2 Transfer of Care Handoff Completed per policy Notes Mental Status: alert / awake / arousable Patient Amnestic to Procedure: Yes Nausea / Vomiting: adequately controlled Pain: adequately controlled Airway Patency, RR, SpO2: stable & adequate BP & HR: stable & adequate Hydration State: stable & adequate Anesthetic Complications: no major complications apparent and Pt Satisfied with anesthetic care
--- NOTE | 2021-07-24 13:34 | XRay Report ---
XR shoulder RT min 2V routine CLINICAL HISTORY: Post shoulder surgery TECHNIQUE: 3 views of the right shoulder were obtained. Comparison: None available at the time of this dictation. FINDINGS: Patient is status post shoulder arthroplasty with expected postsurgical changes including soft tissue swelling, subcutaneous emphysema, and surgical staple placement. No periarticular lucency or hardwar e fracture is seen. IMPRESSION: Expected postoperative appearance status post placement of shoulder arthroplasty. ACT 112: Negative or not required by law. Electronically signed by: Rayray Sofia M.D. 07/24/2021 1:33 PM
[2021-07-24] MEDS ORDERED: oxyCODONE HCL IR 5 MG TAB (IMMEDIATE RELEASE) PO PRN (14:09)
[2021-07-24] MEDS ORDERED: NALOXONE HCL 0.4 MG/1 ML VIAL/CARP IV PRN (14:09)
[2021-07-24] MEDS ORDERED: HYDROmorphone INJ 0.5 MG/0.5 ML SYR IV PRN (14:09)
[2021-07-24] MEDS ORDERED: METHOCARBAMOL 500 MG TABLET PO PRN (14:09)
[2021-07-24] MEDS ORDERED: DICLOFENAC SOD 1% GEL 100 GM TUBE EXT PRN (14:09)
[2021-07-24] MEDS ORDERED: valACYclovir HCL 500 MG TABLET PO PRN (14:09)
[2021-07-24] MEDS ORDERED: bisacodyL 10 MG SUPP PR PRN (14:09)
[2021-07-24] MEDS ORDERED: BACLOFEN 20 MG TAB PO PRN (14:09)
[2021-07-24] MEDS ORDERED: METOCLOPRAMIDE HCL INJ 5 MG/ML 2 ML VIAL IV PRN (14:09)
[2021-07-24] MEDS: ACETAMINOPHEN 500 MG TAB PO SCH ×2 (15:06→22:18)
[2021-07-24] MEDS: KETOROLAC TROMETHAMINE 15 MG/ML VIAL IV SCH ×2 (15:06→21:06)
[2021-07-24] MEDS: SODIUM CHLORIDE 0.9% 1000ML 1,000 ML IV SCH ×2 (15:07→23:57)
[2021-07-24] MEDS ORDERED: PNEUMOCOCCAL POLYSACCHARIDES 25 MCG/0.5 ML VIAL/SYR IM ONE (18:00)
[2021-07-24] MEDS: ceFAZolin 2000MG 2,000 MG/15 ML SYR IV SCH (20:59)
[2021-07-24] MEDS ORDERED: MAGNESIUM OXIDE 400 MG TAB PO SCH (21:00)
[2021-07-24] MEDS ORDERED: SENNA 8.6 MG TAB PO SCH (21:00)
[2021-07-24] MEDS ORDERED: levETIRAcetam 500 MG TAB PO SCH (21:00)
[2021-07-24] MEDS ORDERED: SIMVASTATIN 40 MG TAB PO SCH (21:00)
[2021-07-24] MEDS: DOCUSATE SODIUM 100 MG CAP PO SCH (21:02)
[2021-07-24] MEDS: FLUTICASONE PROPIONATE NA SPR 16 GM BTL SCH (21:05)
[2021-07-25] MEDS: ceFAZolin 2000MG 2,000 MG/15 ML SYR IV SCH (02:26)
[2021-07-25] MEDS: KETOROLAC TROMETHAMINE 15 MG/ML VIAL IV SCH ×2 (04:58→11:01)
[2021-07-25] MEDS: ACETAMINOPHEN 500 MG TAB PO SCH ×2 (05:02→14:19)
[2021-07-25] MEDS: MAGNESIUM HYDROXIDE SUSP 30 ML UDC PO PRN ×2 (05:03→12:54)
--- NOTE | 2021-07-25 06:49 | Orthopedic Progress Note ---
Date of Service July 25, 2021 Assessment & Plan (1) Status post reverse total replacement of right shoulder: On July 24, 2021 Janiya arrived at [facility] and underwent a right reverse shoulder arthroplasty without complication. She had a general anesthetic and a right interscalene nerve block. Postoperatively she was placed in an arm sling and transferred to the general orthopedic floors. Her hospital course was uneventful. On postop day #1, her vital signs were stable and her pain was well controlled. She was able to participate well with physical therapy doing ambulation and range of motion exercises. She was then discharged home. She will follow-up with orthopedics in 2 weeks. Juli Huffman was seen and examined at bedside this morning. Overall she is doing fairly well. She is now having much pain in the right shoulder. She was able to get some sleep last night. She has no complaints. Review of Systems All systems reviewed & are unremarkable except as noted in HPI & below. Physical Exam On physical examination of the right shoulder, the dressing is clean and dry. She has motion of her hand and wrist. She is wearing her sling as instructed. Results & Data Results & Data Laboratory Results . Diagnostic Findings Postoperative x-rays of the right shoulder show the prosthesis to be in anatomic alignment without any evidence of fracture, desiccation, or loosening. PG Care Time/CCT Total # of Minutes Spent Total Time Spent with Patient: Total time spent is greater than 50% in coordination of care (as documented) at patient's floor/unit and/or counseling patient: Coding Level of Care Code 43267 Post Operative Follow-Up Diagnoses Status post reverse total replacement of right shoulder Z96.611
--- NOTE | 2021-07-25 06:51 | Discharge Summary ---
Date of Service July 25, 2021 Admission HPI (Per Admitting) Armida is a pleasant 66-year-old female who underwent a right rotator cuff repair by Dr. Cardozo in 2009. She also underwent a left rotator cuff repair before that by Dr. Austin. Her shoulders have been doing okay until recently. She had a fall back in September 2020 where she dislocated her right shoulder. She was admitted to the hospital. They had difficulty doing a closed reduction. A CT scan showed an incarcerated bony loose body. Dr. Cardozo took her to the operating room, removed the loose body and made sure her shoulder was stable. Unfortunately, she had a large retracted rotator cuff tear at the time. She has not done well with her right shoulder. She continues to have pain and weakness with it. Followup MRI of the right shoulder does show cuff arthropathy. She has elected proceed with a right reverse shoulder arthroplasty. Admission Exam (Per Admitting) On physical examination of the right shoulder, she has about 100 degrees forward elevation and 100 degrees of abduction. She has 4 out of 5 motor strength throughout. She has a lot of pain with range of motion of her shoulder. Principal Diagnosis Same as "Discharge Diagnosis" noted below under Discharge Instructions. Discharge Exam On physical examination of the right shoulder, the dressing is clean and dry. She has motion of her hand and wrist. She is wearing her sling as instructed. Discharge Data Procedures Performed Operation Date: 07/24/21 10:40 Actual Procedures p Right Reverse Total Shoulder Arthroplasty(Right) - Ghulam Weston DO Ordered Studies 07/24/21 05:00 US - OR guided needle placemen Routine Hospital Course (1) Status post reverse total replacement of right shoulder: On July 24, 2021 Janiya arrived at [facility] and underwent a right reverse shoulder replacement without complication. She had a spinal anesthetic and a right interscalene nerve block. Postoperatively she was placed in a sling and transferred to the general orthopedic floors. Her hospital course was uneventful. On postop day #1, her vital signs were stable and her pain was well controlled. She was able to participate well with physical therapy doing ambulation and range of motion exercises. She was then discharged home. She will follow-up with orthopedics in 2 weeks. PG Care Time/CCT Total # of Minutes Spent Total Time Spent with Patient: Total time spent is greater than 50% in coordination of care (as documented) at patient's floor/unit and/or counseling patient: Discharge Plan Discharge Items Patient Disposition: Home - Home Health Services Reason For Visit: Degenerative Joint Disease Right Shoulder Discharge Diagnosis: Right reverse shoulder replacement Activity: As commented below Non-emergency contact: Surgeon Call non-emergency contact if: your wound has increased redness and your wound has increased drainage Follow-up/Referrals: Cookie Correia CRNP [Primary Care Provider] - Diet: Regular Addtl Attending Provider Instructions: Activity and Therapy Recommendations: * If you are using [facility] then therapy will be provided at your home until they feel you have accomplished all of your goals. * If you are using [facility] then Physical Therapy will be provided until they feel you are ready to start Outpatient Physical Therapy. * If you are not using home therapy then Outpatient Physical Therapy should start about 3-5 days from your day of surgery. Therapy will last about 8-12 weeks * Wear your sling for 3 weeks, unless otherwise instructed. You may remove your sling to shower and to dress, but otherwise, you should be in your sling at all times, including while sleeping * The shoulder replacement is very stable and you can use your hand while in the sling * You were shown a series of exercises in the hospital. Do these exercises daily including the exercises you were shown in physical therapy. Medications: * Narcotic You will likely be sent home from the hospital with a prescription for the narcotic pain medication that worked best throughout your stay. * Other medications may be prescribed for specific circumstances. If you have any questions, please call the office at . * Resume previous home medications unless otherwise instructed Dressing Care: Leave the Silverlon dressing in place for 7 days. After 7 days you may remove the dressing. If the incision is not draining then you may leave the rubia open to air. If there is a little bit of drainage or if the rubia are getting stuck on your clothing then cover the incision with a dry dressing. The rubia will be removed at your 2 week follow-up appointment. Showering: You may shower with the Silverlon dressing in place. Do not let the shower spray hit the dressing directly. Pat the Silverlon dressing dry. If the dressing becomes wet underneath, then simply remove the dressing. Keep the incision dry until you are 7 days out from the day of surgery. After 7 days you may remove the Silverlon dressing and shower with the rubia exposed. Let soapy water run over the rubia and pat them dry. Do not scrub or soak the incision. Things To Watch For: * Drainage from the incision site that occurs more than one week after your surgery. * Increased redness at the incision site. * Fever above 102 degrees Fahrenheit. * Unusual chest pain or shortness of breath. * Call [facility] at with any of the above problems Follow-Up Visit: Follow-up with Dr. Weston's PA (Ghulam Hobbs) 2-3 weeks after your day of surgery. He will remove your rubia and answer any questions. If you have any additional questions or concerns, Dr Weston is usually in the office at the same time and will be available An appointment was probably scheduled when you signed-up for surgery in the office. If you have any questions call More detailed instructions as well as Frequently Asked Questions were provided in a folder by our office when you signed-up for surgery. Please review these instructions when you get home. If you have any further questions or concerns, please feel free to call the office at [phone] Pending Studies at Discharge: No Stand-Alone Forms: My [facility] Medications and DC Order Prescriptions: New oxycodone-acetaminophen 5-325 mg tablet 1 tab PO Q6H PRN (Reason: pain) Qty: 30 RF: 0 Continued venlafaxine 150 mg Capsule,Extended Release 24hr 150 mg PO QAM Qty: 0 RF: 0 hydrochlorothiazide 25 mg Tablet 25 mg PO QAM Qty: 0 RF: 0 valacyclovir [Valtrex] 1 gram Tablet 1,000 mg PO UD PRN (Reason: Cold Sores) Qty: 0 RF: 0 cholecalciferol (vitamin D3) 2,000 unit Capsule 2,000 unit PO QAM Qty: 0 RF: 0 baclofen 20 mg tablet 20 mg PO TID PRN (Reason: Muscle Spasm) Qty: 90 RF: 1 tramadol 50 mg tablet 50 mg PO BID PRN (Reason: pain) Qty: 30 RF: 1 fluticasone propionate 50 mcg/actuation spray,suspension 2 sprays intranasal BID Qty: 16 RF: 0 omeprazole 20 mg Capsule,Delayed Release(Dr/Ec) 20 mg PO QAM RF: 0 methocarbamol 500 mg Tablet 500 mg PO Q8H PRN (Reason: Pain) RF: 0 simvastatin 40 mg Tablet 40 mg PO HS RF: 0 turmeric 400 mg Capsule 400 mg PO QAM RF: 0 lisinopril 20 mg tablet 20 mg PO QAM RF: 0 levetiracetam 250 mg tablet 250 mg PO QAM RF: 0 levetiracetam 250 mg tablet 500 mg PO QPM RF: 0 meloxicam 15 mg tablet 15 mg PO DAILY PRN (Reason: pain) RF: 0 magnesium oxide 500 mg Tablet 500 mg PO QPM RF: 0 diclofenac sodium 1 % Gel 2 g TOPICAL QID PRN (Reason: Pain) RF: 0 acetaminophen [Tylenol Ex Str Rapid Release] 500 mg Tablet 500 - 1,000 mg PO Q6H PRN (Reason: Pain) RF: 0 Metamucil 3.4 gram/5.4 gram Powder 1 tbsp PO QAM RF: 0 Discharge Orders: Discharge Order (Routine); Ordered 07/25/21 Ordered By: Ghulam Weston Admission Data Admit Date/Time: 07/24/21 12:39 Attending Provider: Ghulam Weston Admit Provider: Ghulam Weston Primary Care Provider: Cookie Correia
[2021-07-25] MEDS ORDERED: dexAMETHasone 4 MG TAB PO SCH (08:00)
[2021-07-25] MEDS: DOCUSATE SODIUM 100 MG CAP PO SCH (08:07)
[2021-07-25] MEDS: FLUTICASONE PROPIONATE NA SPR 16 GM BTL SCH (08:09)
[2021-07-25] MEDS ORDERED: PANTOprazole 40 MG TAB PO SCH (09:00)
[2021-07-25] MEDS ORDERED: hydroCHLOROthiazide 25 MG TAB PO SCH (09:00)
[2021-07-25] MEDS ORDERED: VENLAFAXINE HCL XR 150 MG CAPXR PO SCH (09:00)
[2021-07-25] MEDS ORDERED: levETIRAcetam 250 MG TAB PO SCH (09:00)
[2021-07-25] MEDS ORDERED: NON-FORMULARY MEDICATION (Turmeric 400 mg Capsule) PO SCH (09:00)
[2021-07-25] MEDS ORDERED: MULTIVITAMIN TAB PO SCH (09:00)
[2021-07-25] MEDS ORDERED: lisinopril 20 MG TAB PO SCH (09:00)
== END 2021-07-25 15:28 | disposition home health service (06) ==
LOC: ASU 08:16 → 3N 08:16